=== PATIENT | male | born 1965 | race Caucasian/White ===

== ENCOUNTER 2021-08-14 16:40 | Outpatient (CLI) | payer OTHER, SELFPAY ==
--- NOTE | 2021-08-14 17:10 | MRI_ITS ---
EXAM: MR CERVICAL SPINE WITHOUT INTRAVENOUS CONTRAST CLINICAL INDICATION: CERVICAL RADICULOPATHY WITH WEAKNESS Technologist Notes TINGLING FROM NECK UP ON TO HEAD AND TO RIGHT CHEEK AND RIGHT ARM. SYMPTOMS FOR 2-3 MONTHS. TECHNIQUE: Multiplanar and multisequence MR images of the cervical spine without intravenous contrast were performed. This report was created using [employer] report generation technology. COMPARISON: 11.08.2007. FINDINGS: VERTEBRAE: C5-6. Discogenic endplate changes. Loss of intervertebral disc height. There is endplate spondylosis of the vertebral body. Posterior disc bulge. Impression upon anterior thecal sac. Narrowing of the bilateral Neuroforamina. There is bilateral facet arthropathy. C6-7. Discogenic endplate changes. Loss of intervertebral disc height. There is endplate spondylosis of the vertebral body. Posterior disc bulge. Impression upon anterior thecal sac. Narrowing of the bilateral Neuroforamina. There is bilateral facet arthropathy. C2-3, C3-4, and C7-T1: Loss of intervertebral disc height. There is endplate spondylosis of the vertebral body. Normal central canal and intervertebral neuroforamina. There is bilateral facet arthropathy. C4-5.Loss of intervertebral disc height. There is endplate spondylosis of the vertebral body. Normal central canal and intervertebral neuroforamina. There is bilateral facet arthropathy. Posterior disc bulge. No spinal stenosis. Normal alignment. No spondylolisthesis. There is preservation of the normal cervical lordosis. SPINAL CORD: Unremarkable in signal and morphology. SOFT TISSUES: Unremarkable. No prevertebral soft tissue swelling. LYMPH NODES: Unremarkable. There is no cervical adenopathy. MRI/Spine Cervical (Routine) IMPRESSION: 1. C5-6. Discogenic endplate changes. Loss of intervertebral disc height. There is endplate spondylosis of the vertebral body. Posterior disc bulge. Impression upon anterior thecal sac. Narrowing of the bilateral Neuroforamina. There is bilateral facet arthropathy. This has progressed. 2. C6-7. Discogenic endplate changes. Loss of intervertebral disc height. There is endplate spondylosis of the vertebral body. Posterior disc bulge. Impression upon anterior thecal sac. Narrowing of the bilateral Neuroforamina. There is bilateral facet arthropathy. This has progressed. Electronically Signed: Juan Luis Garcia MD at 21:32 EST , Service support ,
--- NOTE | 2021-08-14 17:50 | MRI_ITS ---
STUDY: MR Spine Lumbar W/O Contrast 08/14/2021 9:48 PM REASON FOR EXAM: Male, 55 years old. Back pain LUMBAR RADICULOPATHY WITH WEAKNESS Technologist Notes LOW BACK PAIN AND STRONG RIGHT GROIN PAIN INTERMITTENTLY. NO KNOWN INJURY. TECHNIQUE: MR Spine Lumbar W/O Contrast Standardized fat and water weighted pulse sequences were obtained. COMPARISON: 12/10/2008 FINDINGS: Normal lumbar lordosis. There is no substantial scoliosis. Normal conus medullaris that terminates at the L1-2. L1-2: Loss of intervertebral disc height. There is endplate spondylosis of the vertebral body. Normal central canal and intervertebral neuroforamina. There is bilateral facet arthropathy. There is bilateral ligamentum flavum thickening. Posterior disc bulge. L2-3: Loss of intervertebral disc height. There is endplate spondylosis of the vertebral body. Normal central canal and intervertebral neuroforamina. There is bilateral facet arthropathy. There is bilateral ligamentum flavum thickening. Posterior disc bulge. L3-4: Loss of intervertebral disc height. There is endplate spondylosis of the vertebral body. There is bilateral facet arthropathy. Posterior disc bulge. No spinal stenosis. There is bilateral ligamentum flavum thickening. Disc desiccation. L4-5: Loss of intervertebral disc height. There is endplate spondylosis of the vertebral body. There is bilateral facet arthropathy. Narrowing of the bilateral intervertebral neuroforamina. Compression of exiting nerve roots. Posterior central disc herniation. No spinal stenosis. There is bilateral ligamentum flavum thickening. Disc desiccation. L5-S1: Loss of intervertebral disc height. There is endplate spondylosis of the vertebral body. There is bilateral facet arthropathy. Normal central canal and intervertebral neuroforamina. Normal visualized sacral ala. Normal visualized paraspinous soft tissue structures. MRI/Spine Lumbar (Routine) IMPRESSION: Multilevel degenerative changes, as described above. There is a central disc herniation L4-5. Electronically Signed: Juan Luis Garcia MD at 21:51 EST , Service support ,
== END 2021-08-14 23:59 | disposition home or self-care (01) ==
PROVIDERS: Visit Provider Nurse Practitioner
DX: M54.12 Radiculopathy, cervical region (principal)
CPT/HCPCS: 72141; 72148

== ENCOUNTER → 2021-12-09 | Outpatient (CLI) | payer OTHER, SELFPAY ==
--- NOTE | 2021-12-09 16:37 | MRI_ITS ---
STUDY: MRA OF THE HEAD WITHOUT CONTRAST REASON FOR EXAM: Male, 56 years old. CVA TECHNIQUE: 3-D wbts-ex-bdmeif (TOF) imaging was performed with MIPs. The study was performed unenhanced. COMPARISON: None. FINDINGS: Normal bilateral petrous carotid arteries. Normal right cavernous carotid artery with a normal supraclinoid bifurcation. Normal left cavernous carotid artery with a normal supraclinoid bifurcation. Normal right A1 segments of the anterior cerebral artery. Normal left A1 segments of the anterior cerebral artery. Normal intact anterior communicating artery (ACOM). Normal bilateral A2 segments of the anterior cerebral arteries. Normal right M1 and M2 segments of the middle cerebral arteries, with a normal M1 bifurcation. Normal left M1 and M2 segments of the middle cerebral arteries, with a normal M1 bifurcation. There is non-visualization of the right posterior communicating artery (PCOM). Normal left posterior communicating artery (PCOM). Normal bilateral vertebral arteries. Normal basilar artery with a normal basilar bifurcation. The visualized bilateral superior cerebellar (SCA) arteries are normal. Normal bilateral P1, P2 and visualized P3 segments of the posterior cerebral arteries. There is no demonstrated aneurysm of the [place]. There is no major vessel occlusion or hemodynamically significant stenosis. There is no demonstrated abnormality of the visualized brain. MRI/MRA Head ONLY without Contrast IMPRESSION: Normal MRA of the head Electronically Signed: Ofe Barrow MD at 6:05 EDT ,
--- NOTE | 2021-12-09 17:00 | MRI_ITS ---
EXAM: MR HEAD WITHOUT INTRAVENOUS CONTRAST CLINICAL INDICATION: CVA TECHNIQUE: Multiplanar and multisequence MR images of the brain were obtained without intravenous contrast. This report was created using [employer] report generation technology. COMPARISON: None. FINDINGS: BRAIN AND EXTRA-AXIAL SPACES: Unremarkable. No intra- or extra-axial hemorrhage. No evidence of acute infarct. No intracranial mass or mass effect. There is preservation of the ferguson/white matter interface. Posterior fossa structures are unremarkable. Ventricles are appropriate for age. No hydrocephalus. Basal cisterns are patent. SELLA: Unremarkable. Normal sella turcica, pituitary gland, infundibular stalk, optic chiasm and hypothalamus. AUDITORY SYSTEM: Unremarkable. The internal auditory canals are patent. BONES/JOINTS: Unremarkable. No discrete lytic or blastic abnormalities. SINUSES: Mucosal thickening in the paranasal sinuses, more in the ethmoid sinus and maxillary sinuses. MASTOID AIR CELLS: Unremarkable as visualized. Clear. ORBITS: Unremarkable as visualized. Both globes, extraocular muscles, optic nerves and retrobulbar fat appear unremarkable. VASCULATURE: Unremarkable as visualized. Normal flow voids in the major intracranial circulation. MRI/Brain without Contrast IMPRESSION: 1. Normal MRI brain without contrast. 2. Mucosal thickening in the paranasal sinuses, more in the ethmoid sinus and maxillary sinuses. Electronically Signed: Fernando Huntley MD at 8:12 EDT ,
--- NOTE | 2021-12-09 17:26 | MRI_ITS ---
STUDY: MRA NECK WITHOUT CONTRAST REASON FOR EXAM: Male, 56 years old. CVA TECHNIQUE: Source images were obtained, MIPs were performed. The study was performed unenhanced. COMPARISON: None. FINDINGS: RIGHT CAROTID ARTERIES: Normal right common carotid artery (CCA). Normal right common carotid bulb. Normal origin of the right internal carotid (ICA) artery without a hemodynamically significant stenosis. Normal visualized cervical portion of the right internal carotid artery. Normal origin of the right external carotid artery (ECA). LEFT CAROTID ARTERIES: Normal left common carotid artery (CCA). Normal left common carotid bulb. Normal origin of the left internal carotid (ICA) artery without a hemodynamically significant stenosis. Normal visualized cervical portion of the left internal carotid artery. Normal origin of the left external carotid artery (ECA). VERTEBRAL ARTERIES: Normal antegrade flow within the bilateral vertebral artery without a hemodynamically significant stenosis. MRI/MRA Neck without Contrast IMPRESSION: Normal bilateral cervical carotid and vertebral arteries. Electronically Signed: Tushar Yung MD at 0:33 EDT ,
== END | disposition home or self-care (01) ==
LOC: MRI 16:23
PROVIDERS: PCP Family Medicine
DX: I67.89 Other cerebrovascular disease (principal)
CPT/HCPCS: 70544; 70547; 70551

== ENCOUNTER 2022-09-04 17:50 | Emergency (ER) | payer OTHER, SELFPAY ==
[2022-09-04 17:51] VITALS: BP 151/78; PULSE 66; RESP 18; TEMP 36.3; O2SAT 98; BMI 31.1
[2022-09-04 18:23] LABS: Absolute Lymphocyte Count 2.42 X10^3/uL (0.83-4.51); Absolute Neutrophil Count 5.2 X10^3/uL (2.0-7.7); Basophil# 0.02 X10^3/uL; Basophil% 0.2 % (0-1); Eosinophil# 0.14 X10^3/uL; Eosinophils% 1.6 % (0-5); Hemoglobin 14.9 g/dL (13.0-16.5); Lymphocyte # 2.42 X10^3/ul (0.83-4.51); Lymphocyte % 27.6 % (19-41); Mean Corp Hgb Conc 34.7 g/dL (32-36); Mean Corpuscular Hgb 30.1 pg (27.0-32.0); Mean Corpuscular Volume 86.9 fL (80-94); Monocyte# 0.93 X10^3/uL; Monocyte% 10.6 % (0-10); NRBC Flagged by Analyzer 0 % (0-5); Neutrophil # 5.23 X10^3/uL (2.7-7.7); Neutrophil % 59.8 % (47-70); Platelet Count 256 K/mm3 (150-450); RBC Distribution Width CV 12.3 % (11.6-14.6); RBC Distribution Width SD 39.4 fl (35.1-43.9); Red Blood Count 4.95 M/mm3 (4.6-6.2); White Blood Count 8.8 K/mm3 (4.4-11.0)
[2022-09-04 18:34] LABS: Anion Gap 9 (5-15); BUN 13 mg/dL (7-18); BUN/Creat Ratio 11.8 RATIO (10-20); Calcium,Total 9.3 mg/dL (8.5-10.1); Chloride 102 mmol/L (98-107); EST Glomerular Filtration Rate 73 mL/min (>60); Est Glom Filt Rate - Afr Amer 89 mL/min (>60); Estimated Creatinine Clearance 72.55 ml/min; Glucose 80 mg/dL (74-106); Potassium 4.1 mmol/L (3.5-5.1); Sodium Level 138 mmol/L (136-145)
--- NOTE | 2022-09-04 18:50 | CT_ITS ---
INDICATION: Left lower quadrant pain. History of inguinal hernia repair. EXAMINATION: CT ABDOMEN AND PELVIS WITH CONTRAST - CT Abdomen And Pelvis W/ Contrast Injection TECHNIQUE: Helically acquired images were obtained of the abdomen and pelvis following IV contrast. A radiation dose optimization technique was used for this scan. IV Contrast dosage and agent: 2 views of Isovue 370 Oral contrast: None. COMPARISON: None. FINDINGS: LOWER CHEST: Lung bases are clear. No cardiomegaly or pericardial effusion. LIVER: Mild fatty infiltration of the liver without focal mass. GALLBLADDER AND BILIARY TREE: No calcified gallstones. No gallbladder distension or wall edema. No intra- or extrahepatic biliary ductal dilation. PANCREAS: No focal cystic or solid mass. SPLEEN: Normal size without focal cystic or solid mass. ADRENAL GLANDS: No nodules. KIDNEYS AND URETERS: Normal renal size and position. No hydronephrosis. Normal visualized ureters. PERITONEUM: No ascites or free air. No other fluid collection. BOWEL: Normal stomach. Normal small intestine. Diverticulitis of the sigmoid colon without perforation or abscess. The proximal colon appears unremarkable. Normal appendix. LYMPH NODES: No enlarged mesenteric or retroperitoneal lymph nodes. VESSELS: Minimal atherosclerotic changes of the abdominal aorta without aneurysm or dissection. Normal IVC. URINARY BLADDER: Unremarkable. REPRODUCTIVE ORGANS: Normal prostate and seminal vesicles. ABDOMINAL WALL: No discrete abdominal or pelvic wall hernia. BONES: Degenerative changes lumbar spine. There appears to be central disc herniation at L4-5. CT/Abdomen/Pelvis W IV Cont ONLY IMPRESSION: 1. Sigmoid diverticulitis without perforation or abscess. 2. Question central disc herniation at L5-S1. 3. Mild fatty infiltration of the liver. Electronically Signed: Wild Coronel DO at 19:47 EST Reading Location ID and State: [facility] / [place] Tel [phone], Service support ,
--- NOTE | 2022-09-04 19:21 | EDS_ITS ---
HPI HPI - GI History of Present Illness Chief Complaint: Abd Pain Informant: patient Narrative Narrative: Patient presents with lower abdominal pain that is been going on for about a week. He states he has irritable bowel and will sometimes get some diarrhea. He tried loperamide early on but it did not help. He felt bound up so he then took a stool softener. He had a large bowel movement but his pain has persisted. He has never seen blood. Sometimes his appetite has been a little bit off but he has no nausea vomiting or difficulty eating or drinking. No urinary symptoms. No back or flank pain other than a chronic problem with blood back soreness. That is unchanged. He has had colonoscopies. He does not know if he has had diverticular disease. Only abdominal surgery was a right inguinal herniorrhaphy years ago. PFSH PFSH Home Medications amoxicillin 875 mg-potassium clavulanate 125 mg tablet 1 tab PO BID #20 tabs 09/04/22 [Rx Last Taken Unknown] ondansetron 4 mg disintegrating tablet 4 mg PO Q8H PRN PRN Nausea #10 tabs 09/04/22 [Rx Last Taken Unknown] Allergy/AdvReac Type Severity Reaction Status Date / Time amitriptyline [From Elavil] Allergy Other Verified 09/04/22 17:52 Social History Smoking Status: Never smoker ROS ROS ED Constitutional Constitutional ED: Denies chills or fever(s) ENT ENT ED: Denies rhinorrhea Cardiovascular Cardiovascular: Denies palpitations or racing heartbeat Respiratory/Chest Respiratory/Chest: Denies cough or dyspnea Gastrointestinal Gastrointestinal: Reports abdominal pain; Denies melena, nausea or vomiting Genitourinary Genitourinary ED: Denies dysuria or hematuria Musculoskeletal Musculoskeletal: Reports back pain; Denies neck pain Integumentary Denies rash Neurologic Neurologic: Denies headache(s) Endocrine Endocrinology: Denies polydipsia or polyuria Hematologic/Lymphatic Hematologic/Lymphatic: Denies easy bleeding or easy bruising Allergic/Immunologic Allergic/Immunologic ED: Denies urticaria EXAM Physical Exam Narrative Exam Narrative: Patient awake alert no acute distress. Carries on normal conversation. HEENT shows normal mucous membranes. No pallor. No nasal discharge Eye exam shows no pallor or jaundice Neck shows no JVD Lungs are clear bilaterally with good deep breaths. Note: Some data may have been lost as computer shutdown in the middle of this dictation and charting. Heart: Regular without murmur gallop or rub peripheral pulses are equal and normal Abdomen soft, there is tenderness at the left lower quadrant region. No tenderness elsewhere. No mass. Bowel sounds sound normal. no CVA or suprapubic isolated tenderness. Extremities show no edema or tenderness. Patient alert oriented and appropriate. Const Vital Signs: 09/04/22 17:51 Temperature 97.3 F L Temperature Source Temporal Pulse Rate 66 Respiratory Rate 18 Blood Pressure 151/78 H Blood Pressure Mean 102 Pulse Ox 98 Oxygen Delivery Method Room Air MDM MDM MDM Narrative Medical decision making narrative: My independent interpretation of the patient's CT of the abdomen with IV contrast does show some signs of diverticulitis. I did not see a definitive abscess or perforation but we did wait for the final reading. Final reading also did not see an acute perforation. They also make mention of a central disc. Patient does know about this and has been having back pain issues. But he has no neurologic symptoms. Patient CBC is normal. His electrolytes show no acute process and no renal dysfunction. Urinalysis is also normal. I talk with the patient about treatment. We will get him started on Augmentin. We also discussed the significant importance of a clear liquid diet. We also discussed reasons to return that would include worsening pain, vomiting, fevers or other concerns. Lab Data Attestation: I reviewed the patient's lab results. Labs: Laboratory Results - last 24 hr 09/04/22 09/04/22 09/04/22 18:13 18:13 19:16 WBC 8.8 RBC 4.95 Hgb 14.9 Hct 43.0 MCV 86.9 MCH 30.1 MCHC 34.7 RDW Std Deviation 39.4 RDW Coeff of Jade 12.3 Plt Count 256 MPV 9.0 Immature Gran % (Auto) 0.200 Neut % (Auto) 59.8 Lymph % (Auto) 27.6 [place] % (Auto) 10.6 H Eos % (Auto) 1.6 Baso % (Auto) 0.2 Absolute Neuts (auto) 5.2 Absolute Lymphs (auto) 2.42 Nucleated RBC % 0 Sodium 138 Potassium 4.1 Chloride 102 Carbon Dioxide 27.0 Anion Gap 9 BUN 13 Creatinine 1.10 Estim Creat Clear Calc 72.55 Est GFR (MDRD) Af Amer 89 Est GFR (MDRD) Non-Af 73 BUN/Creatinine Ratio 11.8 Glucose 80 Calcium 9.3 Urine Color Yellow Urine Clarity Clear Urine pH 7.0 Ur Specific [place] 1.010 Urine Protein 30 H Urine Glucose (UA) Normal Urine Ketones 15 H Urine Occult Blood Negative Urine Nitrite Negative Urine Bilirubin Negative Urine Urobilinogen 8 H Ur Leukocyte Esterase Negative Urine RBC 0 SEEN Urine WBC 0 SEEN Ur Squamous Epith Cells 0 SEEN Urine Bacteria 0 SEEN Urine Mucus 0 SEEN Radiography Diagnostic Testing: Clinical Impression(s) from Imaging Studies Abdomen/Pelvis CT 09/04/22 18:50 IMPRESSION: 1. Sigmoid diverticulitis without perforation or abscess. 2. Question central disc herniation at L5-S1. 3. Mild fatty infiltration of the liver. Electronically Signed: Wild Coronel DO at 19:47 EST Reading Location ID and State: [address] [place] [address] Tel [phone], Service support , Discharge Plan Triage Chief Complaint: Abd Pain ED Provider: Ralph Levy Dx/Rx/DC Orders Clinical Impression: Diverticulitis Instructions: ED Diverticulitis Prescriptions: New ondansetron [ondansetron] 4 mg tablet,disintegrating 4 mg PO Q8H PRN PRN (Reason: Nausea) Qty: 10 0RF amoxicillin-pot clavulanate 875-125 mg tablet 1 tab PO BID Qty: 20 0RF [facility]errals: [facility] [Primary Care Provider] - 3-5 Days if not improving Disposition Disposition: Home, Self Care
[2022-09-04 19:23] LABS: Bacteria 0 SEEN /hpf (None Seen); Mucous, Urine 0 SEEN /hpf (<or=2+); Red Blood Cells-Urine 0 SEEN /hpf (0-5); Squamous Epithelial Cells - UA 0 SEEN /hpf (0-5); White Blood Cells 0 SEEN /hpf (0-5)
[2022-09-04 19:41] LABS: Color, Urine Yellow (Yellow); Glucose, Dipstick Normal (Normal); Ketone-Dipstick 15 mg/dl (Negative); Leukocyte Esterase-Dipstick Negative /ul (Negative); Nitrite-Dipstick Negative (Negative); Occult Blood-Urine Negative /ul (Negative); Protein-Dipstick 30 mg/dl (Negative); Urine Bilirubin Dipstick Negative (Negative); Urine Clarity Clear (Clear); Urine Urobilinogen 8 mg/dl (Normal)
[2022-09-04] MEDS: Amox/Clavulanate 875 MG Tablet PO (21:42)
[2022-09-04 21:48] VITALS: PULSE 67; RESP 16; O2SAT 98
== END 2022-09-04 21:49 | disposition home or self-care (01) ==
PROVIDERS: Emergency Provider Emergency Medicine; Visit Provider Emergency Medicine
DX: K57.32 Diverticulitis of large intestine without perforation or abscess without bleeding (principal)
CPT/HCPCS: 74177; 80048; 81001; 85025; 99283; Q9967; A4216

== ENCOUNTER → 2024-06-08 | Outpatient (CLI) | payer OTHER, SELFPAY ==
--- NOTE | 2024-06-08 07:15 | US_ITS ---
STUDY: ABDOMINAL ULTRASOUND - RIGHT UPPER QUADRANT REASON FOR VISIT: Male, 58 years old HEPATIC FIBROSIS, ADVANCED FIBROSIS, HCC SCREENING ] TECHNIQUE: Ultrasound evaluation of the right upper quadrant was performed with real-time and static ferguson-scale imaging. TECHNICAL QUALITY: Limited. Examination limited due to a combination of factors including obesity and bowel gas. COMPARISON: CT scan. 09/04/2022 . FINDINGS: Liver: The liver measures 16.2 cm. There is increased echogenicity consistent with fatty infiltration. The bile ducts are within normal limits. There is hepatic color flow. The direction of portal flow is hepatopetal. There is no demonstrated mass lesion. Gallbladder: Normal distended gallbladder. The gallbladder wall measures 2 mm. There is a negative sonographic Kaba''s sign. There is no pericholecystic fluid. There are no gallstones. Common Bile Duct (C.B.D.): The common bile duct measures 5 mm. Pancreas: Suboptimally visualized. Right Kidney: Normal size of the right kidney. The right kidney measures 11.6 cm. Normal renal cortex. The right cortex measures 1.8 cm. There is no demonstrated renal mass or cyst. There is no right hydronephrosis. US/Liver IMPRESSION: Limited as above. No definite acute or significant abnormality seen. Electronically Signed: Dk Savage MD at 23:58 EDT ,
== END | disposition home or self-care (01) ==
LOC: US 07:11
DX: K74.02 Hepatic fibrosis, advanced fibrosis (principal)
CPT/HCPCS: 76705

== ENCOUNTER → 2024-11-27 | Outpatient (CLI) | payer OTHER, SELFPAY ==
--- NOTE | 2024-11-27 07:48 | US_ITS ---
PROCEDURE: ABDOMEN LIMITED 11/27/2024 REASON FOR EXAM: ADVACED FIBROSIS HCC SCREENING COMPARISON: None FINDINGS: Liver: Diffusely echogenic suggesting fatty infiltration.. Liver measures 15.7 cm. Gallbladder: No stones, sludge, wall thickening or tenderness. Common bile duct: Normal measuring 3.3 mm. Pancreas: Visualized portions are sonographically unremarkable. Other: Visualized portions of the right kidney are unremarkable. No right upper quadrant ascites. US/Abdomen Limited IMPRESSION: Fatty infiltration of the liver. The liver is not enlarged. Reading Location: [place] [id number]
== END | disposition home or self-care (01) ==
PROVIDERS: Referring Provider Internal Medicine Gastroenterology; Visit Provider Internal Medicine Gastroenterology
DX: K74.02 Hepatic fibrosis, advanced fibrosis (principal)
CPT/HCPCS: 76705

== ENCOUNTER → 2025-05-22 | Outpatient (CLI) | payer OTHER, SELFPAY ==
--- NOTE | 2025-05-22 09:36 | MRI_ITS ---
PROCEDURE: BRAIN W/WO CONTRAST 05/22/2025 REASON FOR EXAM: OPTIC ATROPHY, BOTH EYES TECHNIQUE: Procedure Code: [id number] Modality: MR Procedure: BRAIN W/WO CONTRAST Multiplanar and multisequence images were obtained. CONTRAST: Clariscan VOLUME: 17 mL COMPARISON: none FINDINGS: Both optic nerves are of normal width and signal intensity. No mass is seen in their relation. No abnormal optic nerve enhancement seen. Optic chiasma is normal. Periorbital soft tissues and retrobulbar fat appear unremarkable. No mass or collection is evident. Extraocular muscles are of normal size. Both eyeballs are normal in size, outline and position. No intraocular mass is observed. No intracerebral or extra-axial hematomas or enhancing masses. No hyperacute or acute infarctions could be depicted. Bilateral cerebral white matter few tiny foci of high T2/FLAIR signal. Normal MRI appearance of the cerebellar parenchymal signals. Normal MRI appearance of different anatomical parts of the brain stem. Normal appearance of the ventricular system. No shift of midline structures. Normal MRI appearance of the petrous temporal bones and cerebellopontine angles with no obvious masses. Scanned paranasal sinuses show no obvious abnormalities. MRI/Brain W/WO Contrast IMPRESSION: Unremarkable study of the orbits. Bilateral cerebral white matter few tiny foci of altered signal, possibly vascu lopathic. Reading Location: [place] [address]
--- NOTE | 2025-05-22 09:38 | MRI_ITS ---
PROCEDURE: MRA HEAD ONLY WITHOUT CONTRAST 05/22/2025 REASON FOR EXAM: OPTIC ATROPHY, BOTH EYES COMPARISON: none TECHNIQUE: Procedure Code: [id number] Modality: MR Procedure: MRA HEAD ONLY WITHOUT CONTRAST Multiplanar multisequential imaging was performed without IV contrast administration. FINDINGS: Patent MRA flow signals of the petrous, cavernous and supraclinoid segments of the internal carotid arteries showing no stenotic lesions or aneurysmal dilatation. Patent MRA signal of the anterior and middle cerebral arteries Patent MRA signal of the vertebral and basilar arteries. No stenotic lesions or aneurysmal dilatation. Persistent origin of the left posterior cerebral artery, variant. Otherwise, patent posterior cerebral arteries. None of the mentioned arteries shows stenotic lesions, occlusion, aneurysmal dilatation or arteriovenous malformation. MRI/MRA Head ONLY without Contrast IMPRESSION: Unremarkable MRA of the intracranial vessels constituting ([place]). Reading Location[facility]
--- NOTE | 2025-05-22 09:38 | MRI_ITS ---
PROCEDURE: MRA NECK WITH AND W/O CONTRAST 05/22/2025 REASON FOR EXAM: OPTIC ATROPHY, BOTH EYES TECHNIQUE: Procedure Code: [id number] Modality: MR Procedure: MRA NECK WITH AND W/O CONTRAST Neck MRA using 2D and 3D Time of Flight technique and with intravenous gadolinium-based contrast. CONTRAST: Clariscan VOLUME: 17 mL COMPARISON: none FINDINGS: Patent MRA signal of the examined aortic arch. Patent MRA signal of the common carotid arteries. No tight stenosis. Paten MRA signal of carotid bulbs. Patent MRA signal of the cervical segments of the internal carotid arteries. No tight stenosis. Patent MRA signal of the external carotid arteries. Hypoplastic right vertebral artery. Variant. Otherwise, patent vertebral arteries. No tight stenosis. None of the examined arteries show aneurysmal dilatation or obvious AVM. MRI/MRA Neck WITH and W/O Contrast IMPRESSION: Patent extracranial carotid and vertebral arteries. Reading Location[facility] [place]
== END | disposition home or self-care (01) ==
LOC: MRI 09:30
DX: H47.20 Unspecified optic atrophy (principal)
CPT/HCPCS: 70544; 70549; 70553; A9575; A4216

== ENCOUNTER → 2025-05-28 | Outpatient (CLI) | payer OTHER, SELFPAY ==
--- NOTE | 2025-05-28 07:52 | US_ITS ---
PROCEDURE: LIVER 05/28/2025 REASON FOR EXAM: F/U ADVANCED LIVER FIBROSIS HCC SCREENING TECHNIQUE: Procedure Code: USLI Modality: US Procedure: LIVER COMPARISON: Prior study dated November 27, 2024. FINDINGS: Liver: Diffusely echogenic suggesting fatty infiltration. The liver measures 16.2 cm. Gallbladder: No stones, sludge, wall thickening or tenderness. Common bile duct: Normal measuring 4.1 mm . Pancreas: Normal Other: Visualized portions of the right kidney are unremarkable. No right upper quadrant ascites. US/Liver IMPRESSION: Fatty infiltration of the liver. No focal lesion is seen. Reading Location: [place] [id number]
--- NOTE | 2025-05-28 07:52 | US_ITS ---
PROCEDURE: LIVER 05/28/2025 REASON FOR EXAM: F/U ADVANCED LIVER FIBROSIS HCC SCREENING TECHNIQUE: Procedure Code: USLI Modality: US Procedure: LIVER COMPARISON: Prior study dated November 27, 2024. FINDINGS: Liver: Diffusely echogenic suggesting fatty infiltration. The liver measures 16.2 cm. Gallbladder: No stones, sludge, wall thickening or tenderness. Common bile duct: Normal measuring 4.1 mm . Pancreas: Normal Other: Visualized portions of the right kidney are unremarkable. No right upper quadrant ascites. US/Liver IMPRESSION: Fatty infiltration of the liver. No focal lesion is seen. Reading Location: [place] [address]
--- OUTSIDE RECORDS SUMMARY | 2025-05-28 08:04 | XMS RPT_ITS | CCD ---
Author Organization [facility] Care Team Providers Care Entry Level Financial Analyst Name Role Phone Ashu Boudreaux MD Primary Care Provider [phone] LOREN SPRINGER Referring Unavailable ASHU BOUDREAUX Primary Care Unavailable ZAIRA MURPHY Attending Unavailable ASHU BOUDREAUX Primary Care Unavailable ZAIRA MURPHY Referring Unavailable LOREN SPRINGER Attending Unavailable LOREN SPRINGER Attending Unavailable ASHU BOUDREAUX Primary Care Unavailable ASHU BOUDREAUX Primary Care Unavailable Ashu Boudreaux MD Primary Care Provider Unavailable Primary Care Provider UnavailEMILY Meeks Referring Unavailable KEYANNA, ZANE Attending Unavailable KEYANNA, ZANE Referring Unavailable ZANE GONZALEZ Attending Unavailable KEYANNA, ZANE Attending Unavailable KEYANNA, ZANE Referring Unavailable Shalonda Vizcarra Attending Unavailable Shalonda Vizcarra [facility]erring [facility] Unavailable Shalonda Vizcarra Attending Unavailable Shalonda Vizcarra Referring [facility] Unavailable Cameron Garcia Attending Unavailable Cameron Garcia Referring [facility] Unavailable Cameron Garcia Attending Unavailable Cameron Garcia Referring Unavailable Allergies Allergy Classification Reported Allergen(s) Allergy Type Date of Onset Reaction(s) Facility (13 sources) Amitriptyline; Translations: [AMITRIPTYLINE HCL] Drug Allergy 6 Mental Status Change [facility] Work Phone: (3 sources) Amitriptyline Drug Allergy 3 Seizures [facility] (1 source) Amitriptyline Drug Allergy 3 [facility] Repository Medications Current Medications Medication Drug Class(es) Dates Sig (Normalized) Sig (Original) amoxicillin 875 mg / clavulanate 125 mg oral tablet (2 sources) Penicillin-class Antibacterial Start: 10-19-2023 End: 10-26-2023 take 1 tablet by mouth twice daily amoxicillin-clav ulanate potassium (AUGMENTIN) 875-125 mg per tablet Indications: Bacterial sinusitis Take 1 tablet by mouth two times a day for 7 days. 14 tablet 0 10/19/2023 10/26/2023 Active Start: 09-04-2022 take 1 tablet by luisana th twice daily Amoxicillin-Pot Clavulanate Active 1 TABLET PO TWICE A DAY September 04, 2022 12:00am Comment on above: Take 1 tablet by luisana th two times a day for 7 days. calcium carbonate 1250 mg / cholecalciferol 200 unt oral tablet (12 sources) Vitamin D Start: 06-02-2011 take 1 tablet by mouth once daily calcium-carbonat e-vitamin D3 500 mg-5 mcg (200 unit) per tablet Take 1 tablet by mouth once daily. 0 06/02/2011 Active Start: 06-02-2011 take 1 tablet by luisana th twice daily [place]-unxkfnprh-fmnrkwt D3 500 mg-5 mc g (200 unit) per tablet Take 1 tablet by mouth twice daily. 0 06/02/2011 Active Comment on above: Take 1 tablet by luisana th twice daily. Take 1 tablet by luisana th once daily. calcium citrate 1190 mg / cholecalciferol 0.005 mg oral tablet (2 sources) Vitamin D Calcium Citrate-Vitamin D (Calcium Citrate + D) 250-5 MG-MCG tablet Active celecoxib 200 mg oral capsule (2 sources) Nonsteroidal Anti-inflammatory Drug Start: 025 take 1 capsule by mouth once daily at mealtime Celecoxib 200 MG capsule Indications: Pain in both hands , Carpal tunnel syndrome, left Take 1 capsule by mouth daily. Take daily with food. 30 capsule 2 05/01/2025 Active levETIRAcetam 500 mg oral tablet (2 sources) levETIRAcetam 50 0 MG tablet Active ondansetron 4 mg disintegrating oral tablet (1 source) Serotonin-3 Receptor Antagonist Start: 023 take 4 mg by mouth every eight hours as needed Ondansetron Active 4 MG PO EVERY 8 HOURS NEEDED September 04, 2022 12:00am rosuvastatin calcium 5 mg oral tablet (2 sources) HMG-CoA Reductase Inhibitor Rosuvastatin 5 MG tablet Active timolol 2.5 mg/ml ophthalmic solution (2 sources) beta-Adrenergic Madelyn Start: take 1 drop(s) into the eye(s) twice daily Timolol maleate 0.25 % Solution instill 1 drop into each eye twice daily 01/07/2025 Active Completed/Discontinued Medications Medication Drug Class(es) Dates Sig (Normalized) Sig (Original) chlordiazePOXIDE hydrochloride 5 mg / clidinium bromide 2.5 mg oral capsule (6 sources) Anticholinergic, Benzodiazepine Start: 09-16-2018 End: 09-04-2022 take 1 capsule by mouth twice daily before lunch, then take 5 capsules by mouth once chlordiazePOXIDE- clidinium (LIBRAX) 5-2.5 mg per capsule Indications: Dyskinesia of esophagus TAKE ONE CAPSULE BY MOUTH TWICE DAILY (BEFORE LUNCH AND EVENING MEAL) 60 capsule 09/16/2018 09/04/2022 Discontinued Comment on above: TAKE ONE CAPSULE BY MOUTH TWICE DAILY (BEFORE LUNCH AND EVENING MEAL) 10 ml lidocaine hydrochloride 10 mg/ml injection (2 sources) Antiarrhythmic, Amide Local Anesthetic Start: 05-01-2025 End: 05-01-2025 Lidocaine (XYLOCAINE) 10 mg/mL injection 1 mL Start: 05-01-2025 End: 05-01-2025 1 mL, Intra-articular, ONCE NEEDED, 1 dose, Starting on Wed05/01/25 at 1500, Until Wed05/01/25 at 1500 loperamide hydrochloride 0.133 mg/ml oral suspension (4 sources) Opioid Agonist Start: 06-09-2022 loperamide (IMODIUM A-D) 1 mg/7.5 mL oral liquid TAKE 7.5ML BY MOUTH FOUR TIMES A DAY NEEDED FOR DIARRHEA 0 06/09/2022 Active Comment on above: TAKE 7.5ML BY MOUTH FOUR TIMES A DAY NEEDED FOR DIARRHEA 1 ml methylPREDNISolone acetate 40 mg/ml injection (2 sources) Corticosteroid Start: 05-01-2025 End: 05-01-2025 methylPREDNISolone acetate (DEPO-MEDROL) injection 40 mg Start: 05-01-2025 End: 05-01-2025 40 mg, Intra-articular, ONCE NEEDED, 1 dose, Starting on Wed05/01/25 at 1500, Until Wed05/01/25 at 1500 omeprazole 20 mg delayed release oral capsule (6 sources) Proton Pump Inhibitor Start: 04-07-2022 take 2 capsules by mouth once daily omeprazole (PRILOSEC) 20 mg capsule Take 40 mg by mouth once daily. 0 04/07/2022 Active omeprazole [address] capsule Active Comment on above: 40 mg. Take 40 mg by mouth once daily. simvastatin 20 mg oral tablet (4 sources) HMG-CoA Reductase Inhibitor Start: 08-17-19 take 1 tablet by mouth once daily at bedtime simvastatin (ZOCOR) 20 mg tablet Take 20 mg by mouth daily at bedtime. 0 08/17/2022 Active Comment on above: Take 20 mg by mouth daily at bedtime. 1 ml triamcinolone acetonide 40 mg/ml injection (2 sources) Corticosteroid Start: 05-01-20 End: 05-01-20 triamcinolone (KENALOG-40) injection 40 mg Start: 05-01-2025 End: 05-01-2025 40 mg, Intra-articular, ONCE NEEDED, 1 dose, Starting on Wed05/01/25 at 1500, Until Wed05/01/25 at 1500 24 hr divalproex sodium 500 mg extended release oral tablet (10 sources) Mood Stabilizer, Anti-epileptic Agent Start: 05-14-2022 take 1 tablet by mouth once daily at bedtime divalproex ER (DEPAKOTE ER) 500 mg 24 hr tablet Take 1,000 mg by mouth daily at bedtime. 0 05/14/2022 Active Start: 05-14-2022 divalproex ER (DEPAKOTE ER) 500 mg 24 hr tablet 1,000 mg. 0 05/14/2022 Active End: 09-04-2022 take 2 tablets by mouth once daily at bedtime divalproex DR 500 mg EC tablet Take 500 mg by mouth daily at bedtime. 2 tabs at hs 09/04/2022 Discontinued Comment on above: Take 500 mg by mouth daily at bedtime. 2 tabs at hs 1,000 mg. Take 1,000 mg by luisana th daily at bedtime. Problems Active Problems Problem Classification Problem Date Documented Da te Episodic/Chronic Abdominal pain (1 source) Lower abdominal pain; Translations: [Lower abdominal pain, unspecified] Episodic Disorders of lipid metabolism (12 sources) Hyperlipidemia; Translations: [Hyperlipidemia, unspecified] Onset: 01-25-2012 01-25-2012 Chronic Diverticulosis and diverticulitis (5 sources) Diverticulitis; Translations: [Diverticulitis of intestine, part unspecified, without perforation or abscess without bleeding] Onset: 01-07-2023 09-04-2022 Chronic Epilepsy; convulsions (12 sources) Seizure disorder; Translations: [Epilepsy, unspecified, not intractable, without status epilepticus] Onset: 06-02-2011 06-02-2011 Chronic Esophageal disorders (15 sources) Esophageal dysmotility; Translations: [Dyskinesia of esophagus] Onset: 10-06-2010 10-06-2010 Chronic Esophageal disorders (1 source) Esophageal disorders; Translations: [Gastroesophageal reflux disease with esophagitis without hemorrhage] Onset: 01-07-2023 Fracture of lower limb (3 sources) Closed fracture of medial malleolus; Translations: [Nondisplaced fracture of medial malleolus of left tibia, initial encounter for closed fracture] Episodic Gastritis and duodenitis (1 source) Chronic superficial gastritis without bleeding; Translations: [Chronic superficial gastritis without bleeding] Onset: 01-15-2023 Chronic Other circulatory disease (1 source) Clearing throat - hawking; Translations: [Other specified symptoms and signs involving the circulatory and respiratory systems] Episodic Other connective tissue disease (4 sources) Pain of bilateral hands; Translations: [Pain in right hand] 05-01-2025 Episodic Other connective tissue disease (2 sources) Pain in right hand; Translations: [Pain in right hand] Onset: 05-01-2025 Episodic Other connective tissue disease (2 sources) Pain in left hand; Translations: [Pain in left hand] Onset: 05-01-2025 Episodic Other eye disorders (1 source) Unspecified optic atrophy; 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] Onset: 05-22-2025 Chronic Other nervous system disorders (12 sources) Carpal tunnel syndrome of right wrist; Translations: [Carpal tunnel syndrome, right upper limb] Onset: 02-23-2013 02-23-2013 Chronic Other nervous system disorders (13 sources) Carpal tunnel syndrome of left wrist; Translations: [Carpal tunnel syndrome, left upper limb] Onset: 02-23-2013 02-23-2013 Chronic Other nervous system disorders (2 sources) Carpal tunnel syndrome, left upper limb; Translations: [Carpal tunnel syndrome, left upper limb] Onset: 05-01-2025 Chronic Other non-traumatic joint disorders (1 source) Acute ankle pain; Translations: [Pain in left ankle and joints of left foot] 10-03-2021 Episodic Other upper respiratory infections (1 source) Bacterial sinusitis; Translations: [Chronic sinusitis, unspecified] 10-19-2023 Chronic Unclassified (2 sources) Hepatic fibrosis, advanced fibrosis; Translations: [Hepatic fibrosis, advanced fibrosis] Onset: 11-29-2024 Past or Other Problems Problem Classification Problem Date Documented Da te Episodic/Chronic Abdominal hernia (13 sources) Diaphragmatic hernia; Translations: [Diaphragmatic hernia without obstruction or gangrene] Onset: 10-06-2010 10-06-2010 Episodic Gastritis and duodenitis (12 sources) Acute gastritis; Translations: [Acute gastritis without bleeding] Onset: 10-06-2010 09-17-2017 Episodic Other connective tissue disease (12 sources) Lateral epicondylitis of right humerus; Translations: [Lateral epicondylitis, right elbow] Onset: 02-23-2013 02-23-2013 Episodic Other gastrointestinal disorders (1 source) Dysphagia; Translations: [Dysphagia, unspecified] Onset: 01-07-2023 01-07-2023 Episodic Other gastrointestinal disorders (1 source) Dysphagia, unspecified; Translations: [Dysphagia, unspecified type] Onset: 01-07-2023 Episodic Other screening for suspected conditions (not mental disorders or infectious disease) (15 sources) Other specified abnormal findings of blood chemistry; Translations: [Other abnormal blood chemistry] Onset: 06-03-2011 06-03-2011 Episodic Results Test Name Value Interpretation Reference Range Facility Brain W/WO Contraston 2024 Brain W/WO Contrast [facility] Imaging Services [address] [place], [place] [id number] Brain W/WO Contrast MR#: [id number] Acct: [id number] Name: CLIFFORD HORN Rep #: [id number] : 1965 M 59 From: Ean hernandez MD PCP: [facility] Status: REG CLI Study: Brain W/WO Contrast Date of Exam: 05/22/25 Exam# [id number] Ordering Dr: DAROSZEWSKI,LOUIS PROCEDURE: BRAIN W/WO CONTRAST 05/22/2025 REASON FOR EXAM: OPTIC ATROPHY, BOTH EYES TECHNIQUE: Procedure Code: [id number] Modality: MR Procedure: BRAIN W/WO CONTRAST Multiplanar and multisequence images were obtained. CONTRAST: Clariscan VOLUME: 17 mL COMPARISON: none FINDINGS: Both optic nerves are of normal width and signal intensity. No mass is seen in their relation. No abnormal optic nerve enhancement seen. Optic chiasma is normal. Periorbital soft tissues and retrobulbar fat appear unremarkable. No mass or collection is evident. Extraocular muscles are of normal size. Both eyeballs are normal in size, outline and position. No intraocular mass is observed. No intracerebral or extra-axial hematomas or enhancing masses. No hyperacute or acute infarctions could be depicted. Bilateral cerebral white matter few tiny foci of high T2/FLAIR signal. Normal MRI appearance of the cerebellar parenchymal signals. Normal MRI appearance of different anatomical parts of the brain stem. Normal appearance of the ventricular system. No shift of midline structures. Normal MRI appearance of the petrous temporal bones and cerebellopontine angles with no obvious masses. Scanned paranasal sinuses show no obvious abnormalities. MRI/Brain W/WO Contrast IMPRESSION: Unremarkable study of the orbits. Bilateral cerebral white matter few tiny foci of altered signal, possibly vasculopathic. Reading Location: [place] [address] CC: LOUIS LYONS; [facility] Armoured Car Escort: Signed Normal [facility] MRA Head ONLY without Contra ston 05-22-2025 MRA Head ONLY without Contrast [facility] Imaging Services [address] [place] [id number] MRA Head ONLY without Contrast MR#: [id number] Acct: [id number] Name: CLIFFORD HORN Rep #: [id number] : 1965 M 59 From: Ean hernandez MD PCP: [facility] Status: REG CLI Study: MRA Head ONLY without Contrast Date of Exam: Exam# [id number] Ordering Dr: LOUIS LYONS PROCEDURE: MRA HEAD ONLY WITHOUT CONTRAST 05/22/2025 REASON FOR EXAM: OPTIC ATROPHY, BOTH EYES COMPARISON: none TECHNIQUE: Procedure Code: MRIMRAH Modality: MR Procedure: MRA HEAD ONLY WITHOUT CONTRAST Multiplanar multisequential imaging was performed without IV contrast administration. FINDINGS: Patent MRA flow signals of the petrous, cavernous and supraclinoid segments of the internal carotid arteries showing no stenotic lesions or aneurysmal dilatation. Patent MRA signal of the anterior and middle cerebral arteries Patent MRA signal of the vertebral and basilar arteries. No stenotic lesions or aneurysmal dilatation. Persistent origin of the left posterior cerebral artery, variant. Otherwise, patent posterior cerebral arteries. None of the mentioned arteries shows stenotic lesions, occlusion, aneurysmal dilatation or arteriovenous malformation. MRI/MRA Head ONLY without Contrast IMPRESSION: Unremarkable MRA of the intracranial vessels constituting ([place]). Reading Location: [place] [address] CC: LOUIS LYONS; [facility] [employer] Escort: Signed Normal [facility] MRA Neck WITH and W/O Contra ston 05-22-2025 MRA Neck WITH and W/O Contrast [facility] Imaging Services [address] [place] [id number] MRA Neck WITH and W/O Contrast MR#: [id number] Acct: [id number] Name: CLIFFORD HORN Rep #: [id number] : 1965 M 59 From: Ean hernandez MD PCP: [facility] Status: REG CLI Study: MRA Neck WITH and W/O Contrast Date of Exam: Exam# [id number] Ordering Dr: LOUIS LYONS PROCEDURE: MRA NECK WITH AND W/O CONTRAST 05/22/2025 REASON FOR EXAM: OPTIC ATROPHY, BOTH EYES TECHNIQUE: Procedure Code: [id number] Modality: MR Procedure: MRA NECK WITH AND W/O CONTRAST Neck MRA using 2D and 3D Time of Flight technique and with intravenous gadolinium-based contrast. CONTRAST: Clariscan VOLUME: 17 mL COMPARISON: none FINDINGS: Patent MRA signal of the examined aortic arch. Patent MRA signal of the common carotid arteries. No tight stenosis. Paten MRA signal of carotid bulbs. Patent MRA signal of the cervical segments of the internal carotid arteries. No tight stenosis. Patent MRA signal of the external carotid arteries. Hypoplastic right vertebral artery. Variant. Otherwise, patent vertebral arteries. No tight stenosis. None of the examined arteries show aneurysmal dilatation or obvious AVM. MRI/MRA Neck WITH and W/O Contrast IMPRESSION: Patent extracranial carotid and vertebral arteries. [facility] CC: LOUIS LYONS; [facility] [employer] Escort: Signed Normal [facility] UPPER EXTREMITY INJECTION: L carpal tunnelon 05-03-2025 Radiology Study observation (narrative) [employer] UPPER EXTREMITY INJECTION: L carpal tunnelon 05-01-2025 Daisyeloise Aleshia 05/03/2025 8:53 PM UPPER EXTREMITY INJECTION: L carpal tunnel Date/Time: 05/01/2025 3:00 PM Performed by: Zane Gonzalez MD Authorized by: Zane Gonzalez MD Supporting Documentation Indications: therapeutic Procedure Details: Procedure: carpal tunnel injection Site: L carpal tunnel Needle size: 25 G Approach: anterior Medication Verification: I have personally verified and performed the final check of the medication(s) used in this procedure prior to administration. The following items were included during the verification process for medication(s) administered: drug name, strength, volume, expiration, physical integrity and appearance of the medication(s). Medications administered: 40 mg methylPREDNISolone acetate 40 MG/ML; 1 mL Lidocaine 10 mg/mL; 40 mg triamcinolone 40 MG/ML Patient tolerance: patient tolerated the procedure well with no immediate complications Comments The risk and benefit of the injection have been discussed with the patient prior to injection and they did wish to proceed. The procedure was performed aseptically in the office and was tolerated by the patient. Consent: Consent was obtained prior to the procedure after discussion of the risks, benefits and alternatives, and expected outcomes were discussed with the patient. The possibilities of reaction to medication, bleeding, infection, the need for additional procedures, failure to diagnosis a condition, and creating a complication requiring operation were discussed with the patient. The patient concurred with the proposed plan, giving consent. Preparation: Patient was prepped in the usual sterile fashion. [facility] Abdomen Limitedon 11-27-2024 Abdomen Limited [facility] Imaging Services [address], [place] [address] Abdomen Limited MR#: [id number] Acct: [id number] Name: CLIFFORD HORN Rep #: [id number] : 1965 M 59 From: Peterson lutz MD PCP: [facility] Status: REG CLI Study: Abdomen Limited Date of Exam: 11/27/24 Exam# [id number] Ordering Dr: Shalonda Vizcarra AGER TENDER -C PROCEDURE: ABDOMEN LIMITED 11/27/2024 REASON FOR EXAM: ADVACED FIBROSIS HCC SCREENING COMPARISON: None FINDINGS: Liver: Diffusely echogenic suggesting fatty infiltration.. Liver measures 15.7 cm. Gallbladder: No stones, sludge, wall thickening or tenderness. Common bile duct: Normal measuring 3.3 mm. Pancreas: Visualized portions are sonographically unremarkable. Other: Visualized portions of the right kidney are unremarkable. No right upper quadrant ascites. US/Abdomen Limited IMPRESSION: Fatty infiltration of the liver. The liver is not enlarged. Reading Location: [place] [address] CC: JEAN Vizcarra; [facility] [employer] Escort: Signed Normal [facility] Liveron 06-08-2024 Liver [facility] Imaging Services [address] [place], [place] [address] Liver MR#: [id number] Acct: [id number] Name: CLIFFORD HORN Rep #: [id number] : 1965 M 58 From: Dk mcneill MD PCP: [facility] Status: REG CLI Study: Liver Date of Exam: 06/08/24 Exam# [id number] Ordering Dr: SHALONDA VIZCARRA [id number] STUDY: ABDOMINAL ULTRASOUND - RIGHT UPPER QUADRANT REASON FOR VISIT: Male, 58 years old HEPATIC FIBROSIS, ADVANCED FIBROSIS, HCC SCREENING ] TECHNIQUE: Ultrasound evaluation of the right upper quadrant was performed with real-time and static ferguson-scale imaging. TECHNICAL QUALITY: Limited. Examination limited due to a combination of factors including obesity and bowel gas. COMPARISON: CT scan. 09/04/2022 . FINDINGS: Liver: The liver measures 16.2 cm. There is increased echogenicity consistent with fatty infiltration. The bile ducts are within normal limits. There is hepatic color flow. The direction of portal flow is hepatopetal. There is no demonstrated mass lesion. Gallbladder: Normal distended gallbladder. The gallbladder wall measures 2 mm. There is a negative sonographic Kaba''s sign. There is no pericholecystic fluid. There are no gallstones. Common Bile Duct (C.B.D.): The common bile duct measures 5 mm. Pancreas: Suboptimally visualized. Right Kidney: Normal size of the right kidney. The right kidney measures 11.6 cm. Normal renal cortex. The right cortex measures 1.8 cm. There is no demonstrated renal mass or cyst. There is no right hydronephrosis. US/Liver IMPRESSION: Limited as above. No definite acute or significant abnormality seen. Electronically Signed: Dk Savage MD at 23:58 EDT , CC: SHALONDA VIZCARRA; [facility] [employer] Escort: Signed Normal [facility] CNOVon 10-19-2023 CNOV Office Visit ([facility] ) CLIFFORD HORN ([id number]) 1965 M Date Time Provider Department 10/19/23 5:00 PM MARLENY SANTIAGO [facility] During your visit today, we recorded the following information about you: Temperature Pulse Respiration Blood pressure 98.8 degrees 75/minute 20/minute 150/90 Weight 99.5 kg Marleny Santiago APRN.CNP 10/19/2023 5:04 PM Signed ASSESSMENT/PLAN: 1. Bacterial sinusitis - ICD9: 473.9, 041.9, ICD10: J32.9, B96.89 - Will begin treatment with as per antibiotic as written, see orders - The patient should also be given flonase nasal spray for the first 5-7 days of treatment. - Supportive care with plenty of fluids, rest, and analgesia prn. - AMOXICILLIN 875 MG-POTASSIUM CLAVULANATE 125 MG TABLET - Follow-up with your PCP in 3-5 days if symptoms have not improved or sooner if symptoms worsen - Discussed red flags and need for immediate medical evaluation if any occur. - Discussed supportive care treatment with fluids, rest and analgesia. - Discussed expected course of illness Marleny Santiago APRN.FOOD TASTER Adult Sinusitis Patient Education What is Sinusitis? Sinusitis [lksz-xew-elbl-tis] is inflammation of the sinuses or swelling of the lining of the sinus cavity or nose. During an infection the sinuses become blocked with fluid causing swelling of the lining of the sinuses. Symptoms: (viral and bacterial infections) Stuffy nose Runny nose Postnasal drip Fever Toothache Headache Tiredness Cough Sore throat Face and head pressure and or pain Common causes: 98% of sinus infections are viral caused by viruses. Risk Factors of Sinusitis Include: Allergies, air pollution, indoor humidity and outdoor temperature changes, andstructural changes in the nose may contribute to sinus pain, pressure and congestion. When to get help? Temperature greater than 100.4 ?F Symptoms lasting more than 10 days or worsening symptoms greater than 7-10 days. If you do not improve or worsen after a course of antibiotics, you should be re-examined. Diagnosis and Treatment: Your healthcare provider will ask a number of questions about your symptoms and how long they have occurred. If symptoms of sinusitis persist greater than 10 days, it is possible you have a bacterial sinus infection and an antibiotic is prescribed. If it is viral, antibiotics will not help. You may be instructed to take skos-vdw-[id number] medications for symptoms. including fever reducers acetaminophen or ibuprofen, nasal saline spray, cough and cold preparations and decongestants as prescribed by the physician, nurse practitioner or physician railways assistant. Self-Care and Prevention: Rest Fluids for hydration Good hand washing Humidifier Avoid smoking and exposure to second hand smoke Avoid sick contacts Marleny Santiago APRN.FOOD TASTER 10/19/2023 5:06 PM Signed Subjective Sinus Problem Associated symptoms include congestion, coughing and a sore throat. Pertinent negatives include no chills, fever, headaches or myalgias. Clifford Horn is a 58 year old male who presents with 7 days of cough, congestion, sore throat, sinus pressure, eyes red and drainage. He denies fever. Has been taking OTC medication and sudafed. No known sick contacts. Review of Systems Constitutional: Negative for chills and fever. HENT: Positive for congestion and sore throat. Negative for ear pain. Eyes: Positive for discharge and redness. Respiratory: Positive for cough. Musculoskeletal: Negative for myalgias. Neurological: Negative for dizziness and headaches. BP 150/90 Pulse 75 Temp 37.1 ?C (98.8 ?F) Resp 20 Wt 99.5 kg (219 lb 5.7 oz) SpO2 97% BMI 33.35 kg/m? PAST MEDICAL HISTORY Diagnosis Date Carpal tunnel syndrome DDD (degenerative disc disease), lumbar also neck Diverticulitis Dyskinesia of esophagus GERD (gastroesophageal reflux disease) Globus sensation Hiatal hernia IBS (irritable bowel syndrome) Low back pain Lumbar spondylosis Mixed hyperlipidemia NAFLD (nonalcoholic fatty liver disease) Neck pain Numbness of fingers of both hands Osteoarthritis of multiple joints bilateral hip joints Seizure disorder (HCC) 08/09/1989 related to elavil PAST SURGICAL HISTORY Procedure Laterality Date COLONOSCOPY 11/23/2017 repeat in 10 years COLONOSCOPY 01/07/2023 EGD 11/23/2017 EGD 01/07/2023 EGD TRANSORAL BIOPSY SINGLE/MULTIPLE 10/06/2010 ESOPHAGOGASTRODUODENOS COPY TRANSORAL DIAGNOSTIC 01/05/2014 EGD NEUROPLASTY AND/TRANSPOS MEDIAN NRV CARPAL TUNNE 03/22/2013 Carpal tunnel decomp - right PAST SURGICAL HISTORY OF hernia surgery, Lt inguinal ALLERGIES Elavil [Amitriptyline Hcl] MEDICATIONS omeprazole (PRILOSEC) 20 mg capsule Take 40 mg by mouth once daily. divalproex ER (DEPAKOTE ER) 500 mg 24 hr tablet Take 1,000 mg by mouth daily at bedtime. (more content not included)... [facility] Colonoscopyon 01-07-2023 Colonoscopy [facility] Gastrointestinal Endoscopy Patient Name: Clifford Horn Procedure Date: 01/07/2023 12:32 PM Date of : 1965 Admit Type: Outpatient Age: 57 Gender: Male Note Status: Finalized Procedure: Colonoscopy - screening high risk Indications: High risk colon cancer surveillance: Personal history of colonic polyps Providers: Zaira Murphy MD Patient Profile: Refer to note in patient chart for documentation of history and physical. Last Colonoscopy: 5 years ago. Referring Physician: Loren Springer (pa) (Referring MD), Medicines: See the other procedure note for documentation of the administered medications, Midazolam 2 mg IV Complications: No immediate complications. Requesting Provider: Procedure: Pre-Anesthesia Assessment: - Prior to the procedure, a History and Physical was performed, and patient medications and allergies were reviewed. The patient is competent. The risks and benefits of the procedure and the sedation options and risks were discussed with the patient. All questions were answered and informed consent was obtained. Patient identification and proposed procedure were verified by the physician in the pre-procedure area. Mental Status Examination: alert and oriented. Airway Examination: normal oropharyngeal airway and neck mobility. Respiratory Examination: clear to auscultation. CV Examination: normal. Prophylactic Antibiotics: The patient does not require prophylactic antibiotics. Prior Anticoagulants: The patient has taken no anticoagulant or antiplatelet agents. ASA Grade Assessment: II - A patient with mild systemic disease. After reviewing the risks and benefits, the patient was deemed in satisfactory condition to undergo the procedure. The anesthesia plan was to use moderate sedation / analgesia (conscious sedation). Immediately prior to administration of medications, the patient was re-assessed for adequacy to receive sedatives. The heart rate, respiratory rate, oxygen saturations, blood pressure, adequacy of pulmonary ventilation, and response to care were monitored throughout the procedure. The physical status of the patient was re-assessed after the procedure. After I obtained informed consent, the scope was passed under direct vision. Throughout the procedure, the patient's blood pressure, pulse, and oxygen saturations were monitored continuously. The Colonoscope was introduced through the anus and advanced to the cecum, identified by the appendiceal orifice, IC valve and transillumination. The colonoscopy was performed without difficulty. The patient tolerated the procedure well. The quality of the bowel preparation was suboptimal. There was still retained fecal material which required lavage and aspiration to visualize the winslow adequately. This was done, but took some time, however, the winslow were visualized adequately. The appendiceal orifice and the rectum were photographed. Moderate Sedation: See the other procedure note for documentation of moderate sedation with intraservice time. The administration of moderate sedation was initiated at 13:08 PM. Moderate (conscious) sedation was personally administered by the endoscopist. The following parameters were monitored: oxygen saturation, heart rate, blood pressure, respiratory rate, EKG, adequacy of pulmonary ventilation, and response to care. Findings: The perianal and digital rectal examinations were normal. Non-bleeding internal hemorrhoids were found. A 1 to 2 mm polyp was found in the sigmoid colon. The polyp was sessile. The polyp was removed with a cold biopsy forceps. Resection and retrieval were complete. Verification of patient identification for the specimen was done by the nurse. Estimated blood loss was minimal. A few small-mouthed diverticula were found in the sigmoid colon. Impression: - Non-bleeding internal hemorrhoids. - One 1 to 2 mm polyp in the sigmoid colon, removed with a cold biopsy forceps. Resected and retrieved. - Diverticulosis in the sigmoid colon. Recommendation: - Discharge patient to home (ambulatory). - Resume previous diet. - Continue present medications. - Await pathology results. - Follow up with Loren Springer PA-C via televisit for discussion of pathology results and determination of timing of future endoscopies - Patient has a contact number available for emergencies. The signs and symptoms of potential delayed complications were discussed with the patient. Return to normal activities tomorrow. Written discharge instructions were provided to the patient. - Repeat colonoscopy is recommended for surveillance. The colonoscopy date will be determined after pathology results from today's exam become available for review. Procedure Code(s): --- Professional --- 28253, Colonoscopy, flexible; with biopsy, single or multiple Diagnosis Code(s): --- Professional --- K57.30, (more content not included)... [facility] HISTORY PHYSICALon 3 HISTORY PHYSICAL HNO ID: [id number] Author: Zaira Murphy MD Service: General Surgery Author Type: Physician Type: HANDP Filed: 01/07/2023 12:03 PM Note Text: HISTORY AND PHYSICAL Clifford Horn 1965 REFERRING PHYSICIAN: Lv Ga CHIEF COMPLAINT: Consult (Colonoscopy consult) HPI: The patient is a 57 year old male referred for endoscopy. Clifford notes an episode of diverticulitis for which he was treated in August 2022-seen at [facility] and [facility]. Notes symptoms resolved completely with oral Augmentin. Patient denies any change in bowel habits, weight changes, blood in stools, black tarry stools or abdominal pain. Denies family history of colon issues. The patient NOTES upper GI complaints including frequent throat clearing and acid reflux. Denies having previous EGD. Clifford has undergone prior endoscopy. Last colonoscopy 11/23/17. No polyps. BBPS 5. Patient denies problems with sedation in the past. PAST MEDICAL HISTORY PAST MEDICAL HISTORY Diagnosis Date Carpal tunnel syndrome DDD (degenerative disc disease), lumbar also neck Diverticulitis Dyskinesia of esophagus GERD (gastroesophageal reflux disease) Globus sensation Hiatal hernia IBS (irritable bowel syndrome) Low back pain Lumbar spondylosis Mixed hyperlipidemia NAFLD (nonalcoholic fatty liver disease) Neck pain Numbness of fingers of both hands Osteoarthritis of multiple joints bilateral hip joints Seizure disorder (HCC) 08/09/1989 related to elavil PAST SURGICAL HISTORY PAST SURGICAL HISTORY Procedure Laterality Date COLONOSCOPY 11/23/2017 repeat in 10 years EGD 11/23/2017 EGD TRANSORAL BIOPSY SINGLE/MULTIPLE 10/06/2010 ESOPHAGOGASTRODUODENOS COPY TRANSORAL DIAGNOSTIC 01/05/2014 EGD NEUROPLASTY AND/TRANSPOS MEDIAN NRV CARPAL TUNNE 03/22/2013 Carpal tunnel decomp - right PAST SURGICAL HISTORY OF hernia surgery, Lt inguinal CURRENT MEDICATIONS Current Outpatient Medications Medication Sig omeprazole (PRILOSEC) 20 mg capsule Take 40 mg by mouth once daily. simvastatin (ZOCOR) 20 mg tablet Take 20 mg by mouth daily at bedtime. divalproex ER (DEPAKOTE ER) 500 mg 24 hr tablet Take 1,000 mg by mouth daily at bedtime. loperamide (IMODIUM A-D) 1 mg/7.5 mL oral liquid TAKE 7.5ML BY MOUTH FOUR TIMES A DAY NEEDED FOR DIARRHEA [id number] min D3 500 mg-5 mcg (200 unit) per tablet Take 1 tablet by mouth once daily. No current facility-administered medications for this visit. ALLERGIES: Elavil [Amitriptyline Hcl] PERSONAL HISTORY: SOCIAL HISTORY Social History Tobacco Use Smoking status: Never Smokeless tobacco: Never Vaping Use Vaping Use: Never used Substance Use Topics Alcohol use: Yes Comment: rarely, once monthly Drug use: No FAMILY HISTORY: FAMILY HISTORY FAMILY HISTORY Problem Relation Age of Onset Emphysema Mother Heart Father [place] age 69 Colon Cancer Maternal Grandfather 90 REVIEW OF SYMPTOMS: The review of systems data was entered by the nurse and reviewed by ut Nursing Notes: Ina Hernandez RN 12/23/2022 10:15 AM Signed REVIEW OF SYSTEMS: General: The patient denies fatigue, denies weight loss, denies weight gain, denies feeling hot, and denies feelings of cold. Eyes: The patient denies glaucoma, denies eye injury/surgery, wears glasses or contacts. Ear/Nose/Throat: The patient NOTES allergies, denies hayfever, denies ear infections, and denies bloody noses. Cardiovascular: The patient denies chest pain, denies heart disease, denies high blood pressure,denies cardiac stent, denies prior heart attack, denies irregular heart beat, NOTES high cholesterol, denies poor circulation, denies heart failure, other cardiac issues, denies claudication, denies cold feet, denies peripheral arterial stent. Respiratory: The patient denies tuberculosis, denies pneumonia, denies frequent cough, denies pulmonary embolism, denies shortness of breath, and denies coughing up blood. Gastrointestinal: The patient denies difficulty swallowing, NOTES acid reflux, denies ulcers, denies vomiting, denies jaundice/hepatitis, denies gallbladder problems, denies black or tarry stools, denies hemorrhoids, denies bleeding from rectum, NOTES diverticulitis, denies constipation, denies diarrhea, denies loss of stool control, and NOTES hernias. Kidney/Bladder: The patient denies kidney stones, denies urine infections, and denies bloody urine. Skin: The patient denies a history of skin cancer, denies bleeding/changing moles, and denies a history of skin rash. Neurologic: The patient NOTES a history of epilepsy/convulsions, denies headaches, denies head/spinal injuries, and denies stroke/TIA. Psychiatric: The patient denies psychiatric medications, denies depression, and denies voices, denies substance abuse. Endocrine: The patient denies thyroid disorders, denies diabetes, and den (more content not included)... [facility] NURSING PROGon 01-07-2023 NURSING PROG HNO ID: [id number] Author: Liudmila Neumann RN Service: ? Author Type: Registered Nurse Type: Nursing Progress Note Filed: 01/07/2023 2:45 PM Note Text: Arrived in phase II via cart. Left lateral position. Sedated, but responds to verbal stimuli. Color normal; skin warm and dry. Respirations wnl and unlabored. Abdomen soft and with + bowel sounds in quads X 4. Patient resting comfortably. Family at bedside. Liudmila Neumann RN [facility] SURGICAL PATHOLOGYon 023 CASE REPORT [facility] Comment on above: Order Comment: Speci men Type: TISSUE SPECIMEN Ordering Facility: [facility] Address: [address] [place] [id number] Result Comment: Surg ical Pathology Report Case: [id number] Authorizing Provider: Zaira Murphy MD Collected: 01/07/2023 12:56 PM Ordering Location: Ambulatory Surgery Received: 01/07/2023 03:49 PM Pathologist: Cameron Bosch MD Specimens: A) - ANTRUM (STOMACH) BIOPSY, Antral bx h/h B) - ESOPHAGOGASTRIC JUNCTION BIOPSY, GE junction bx C) - ESOPHAGUS MID BIOPSY D) - SIGMOID COLON POLYP Performed By: #### S #### [facility] CLIA [id number] [address] [facility] [address] [place] FINAL DIAGNOSIS [facility] Comment on above: Order Comment: Speci men Type: TISSUE SPECIMEN Ordering Facility: [facility] Address: [address] [place] [id number] Result Comment: Demetris turcios, antrum, biopsy: - Gastric antral mucosa with mild chronic inactive gastritis. - No evidence of Helicobacter pylori organisms on H&E stain. B. Esophagogastric junction, biopsy: - Gastric glandular mucosa with acute and chronic inflammation. - Negative for intestinal metaplasia and dysplasia. C. Esophagus, mid, biopsy: - Squamous mucosa with no significant histopathologic findings. - No evidence of increased intraepithelial eosinophils. D. Colon, sigmoid polyp, biopsy: - Colonic mucosa with mild hyperplastic change. Performed By: #### S #### [facility] CLIA [id number] [address] [place] [address] OF [facility] FINAL PERFORMING LAB [facility] Comment on above: Order Comment: Speci men Type: TISSUE SPECIMEN Ordering Facility: [facility] Address: [address] [place] [address] Result Comment: Diag nostic interpretation performed at [place] [address] CLIA# [id number] [employer] Worker: Marky Tafoya M.D. Performed By: #### S #### [facility] CLIA [id number] [address] [place] [address] GROSS DESCRIPTION [facility] Comment on above: Order Comment: Speci men Type: TISSUE SPECIMEN Ordering Facility: [facility] Address: [address] [place] [address] Result Comment: A. A NTRUM (STOMACH) BIOPSY Received in formalin is one piece of shine, soft tissue measuring 0.3 x 0.2 x 0.2 cm. Totally submitted in one cassette. B. ESOPHAGOGASTRIC JUNCTION BIOPSY Received in formalin is one piece of shine-brown, soft tissue measuring 0.3 x 0.2 x 0.2 cm. Totally submitted in one cassette. C. ESOPHAGUS MID BIOPSY Received in formalin are two pieces of shine-white, soft tissue aggregating to 0.4 x 0.2 x 0.1 cm. Totally submitted in one cassette. D. SIGMOID COLON POLYP Received in formalin are two pieces of shine, soft tissue aggregating to 0.4 x 0.1 x 0.1 cm. Totally submitted in one cassette. Gross examination performed at [place] [id number] [place] January 08, 2023 12:51 AM Performed By: #### S #### [facility] CLIA [id number] [address] [place] [address] [place] [id number] [place] Upper GI endoscopyon 023 Upper GI endoscopy Josie [facility] Gastrointestinal Endoscopy Patient Name: Clifford Horn Procedure Date: 01/07/2023 12:33 PM Date of : 1965 Admit Type: Outpatient Age: 57 Gender: Male Note Status: Finalized Procedure: Upper GI endoscopy Indications: Dysphagia, Heartburn Providers: Zaira Murphy MD Patient Profile: Refer to note in patient chart for documentation of history and physical. Referring Physician: Loren Springer (pa) (Referring MD) Medicines: Midazolam 5 mg IV, Fentanyl 50 micrograms IV, Diphenhydramine 50 mg IV, Benzocaine spray, See the other procedure note for documentation of the administered medications Complications: No immediate complications. Requesting Provider: Procedure: Pre-Anesthesia Assessment: - Prior to the procedure, a History and Physical was performed, and patient medications and allergies were reviewed. The patient is competent. The risks and benefits of the procedure and the sedation options and risks were discussed with the patient. All questions were answered and informed consent was obtained. Patient identification and proposed procedure were verified by the physician in the pre-procedure area. Mental Status Examination: alert and oriented. Airway Examination: normal oropharyngeal airway and neck mobility. Respiratory Examination: clear to auscultation. CV Examination: normal. Prophylactic Antibiotics: The patient does not require prophylactic antibiotics. Prior Anticoagulants: The patient has taken no anticoagulant or antiplatelet agents. ASA Grade Assessment: II - A patient with mild systemic disease. After reviewing the risks and benefits, the patient was deemed in satisfactory condition to undergo the procedure. The anesthesia plan was to use moderate sedation / analgesia (conscious sedation). Immediately prior to administration of medications, the patient was re-assessed for adequacy to receive sedatives. The heart rate, respiratory rate, oxygen saturations, blood pressure, adequacy of pulmonary ventilation, and response to care were monitored throughout the procedure. The physical status of the patient was re-assessed after the procedure. After obtaining informed consent, the endoscope was passed under direct vision. Throughout the procedure, the patient's blood pressure, pulse, and oxygen saturations were monitored continuously. The Endoscope was introduced through the mouth, and advanced to the second part of duodenum. The upper GI endoscopy was accomplished without difficulty. The patient tolerated the procedure well. Moderate Sedation: See the other procedure note for documentation of moderate sedation with intraservice time. The administration of moderate sedation was initiated at 12:50 PM. Moderate (conscious) sedation was personally administered by the endoscopist. The following parameters were monitored: oxygen saturation, heart rate, blood pressure, respiratory rate, EKG, adequacy of pulmonary ventilation, and response to care. Findings: The first portion of the duodenum and second portion of the duodenum were normal. Striped mildly erythematous mucosa without bleeding was found in the gastric antrum. Biopsies were taken with a cold forceps for histology. Verification of patient identification for the specimen was done by the nurse. Estimated blood loss was minimal. A small hiatal hernia was present. Biopsies were taken with a cold forceps for histology of the GE junction and the mid esophagus. Verification of patient identification for the specimen was done by the nurse. Estimated blood loss was minimal. Impression: - Normal first portion of the duodenum and second portion of the duodenum. - Erythematous mucosa in the antrum. Biopsied. - Small hiatal hernia. Biopsied at GE junction and the mid esophagus. Recommendation: - Discharge patient to home (ambulatory). - Resume previous diet. - Continue present medications. - Await pathology results. - Follow up with Loren Springer PA-C via televisit for discussion of pathology results and determination of timing of future endoscopies Procedure Code(s): --- Professional --- 37714, Esophagogastroduodenos copy, flexible, transoral; with biopsy, single or multiple Diagnosis Code(s): --- Professional --- R12, Heartburn R13.10, Dysphagia, unspecified K44.9, Diaphragmatic hernia without obstruction or gangrene K31.89, Other diseases of stomach and duodenum CPT copyright 2020 [employer]. All rights reserved. The codes documented in this report are preliminary and upon machine i engraver review may be revised to meet current compliance requirements. Attending Participation: I personally performed the entire procedure. Scope In: 12:53:34 PM Scope Out: 1:00:43 PM MD Zaira Campos MD 01/07/2023 1:04:38 PM This report has been signed electronically by Zaira Murphy MD Number of Addenda: 0 Note Init (more content not included)... [facility] CNOVon 12-23-2022 CNOV Office Visit (GENSWS ) JUSTINACLIFFORD ([id number]) 1965 M Date Time Provider Department 12/23/22 9:00 AM LOREN SPRINGER During your visit today, we recorded the following information about you: Temperature Pulse Blood pressure Weight 97.7 degrees 66/minute 142/80 95.5 kg Height 1.727 m Loren Springer PA-C 12/29/2022 12:54 PM Addendum HISTORY AND PHYSICAL Clifford Denny Justina 1965 REFERRING PHYSICIAN: Lv, [place] CHIEF COMPLAINT: Consult (Colonoscopy consult) HPI: The patient is a 57 year old male referred for endoscopy. Clifford notes an episode of diverticulitis for which he was treated in August 2022-seen at [facility] Notes symptoms resolved completely with oral Augmentin. Patient denies any change in bowel habits, weight changes, blood in stools, black tarry stools or abdominal pain. Denies family history of colon issues. The patient NOTES upper GI complaints including frequent throat clearing and acid reflux. Denies having previous EGD. Clifford has undergone prior endoscopy. Last colonoscopy 11/23/17. No polyps. BBPS 5. Patient denies problems with sedation in the past. PAST MEDICAL HISTORY Diagnosis Date Carpal tunnel syndrome DDD (degenerative disc disease), lumbar also neck Diverticulitis Dyskinesia of esophagus GERD (gastroesophageal reflux disease) Globus sensation Hiatal hernia IBS (irritable bowel syndrome) Low back pain Lumbar spondylosis Mixed hyperlipidemia NAFLD (nonalcoholic fatty liver disease) Neck pain Numbness of fingers of both hands Osteoarthritis of multiple joints bilateral hip joints Seizure disorder (HCC) 08/09/1989 related to elavil PAST SURGICAL HISTORY Procedure Laterality Date COLONOSCOPY 11/23/2017 repeat in 10 years EGD 11/23/2017 EGD TRANSORAL BIOPSY SINGLE/MULTIPLE 10/06/2010 ESOPHAGOGASTRODUODENOS COPY TRANSORAL DIAGNOSTIC 01/05/2014 EGD NEUROPLASTY AND/TRANSPOS MEDIAN NRV CARPAL TUNNE 03/22/2013 Carpal tunnel decomp - right PAST SURGICAL HISTORY OF hernia surgery, Lt inguinal Current Outpatient Medications Medication Sig omeprazole (PRILOSEC) 20 mg capsule Take 40 mg by mouth once daily. simvastatin (ZOCOR) 20 mg tablet Take 20 mg by mouth daily at bedtime. divalproex ER (DEPAKOTE ER) 500 mg 24 hr tablet Take 1,000 mg by mouth daily at bedtime. loperamide (IMODIUM A-D) 1 mg/7.5 mL oral liquid TAKE 7.5ML BY MOUTH FOUR TIMES A DAY NEEDED FOR DIARRHEA [id number]-[id number] min D3 500 mg-5 mcg (200 unit) per tablet Take 1 tablet by mouth once daily. No current facility-administered medications for this visit. ALLERGIES: Elavil [Amitriptyline Hcl] PERSONAL HISTORY: Social History Tobacco Use Smoking status: Never Smokeless tobacco: Never Vaping Use Vaping Use: Never used Substance Use Topics Alcohol use: Yes Comment: rarely, once monthly Drug use: No FAMILY HISTORY: FAMILY HISTORY Problem Relation Age of Onset Emphysema Mother Heart Father [place] age 69 Colon Cancer Maternal Grandfather 90 REVIEW OF SYMPTOMS: The review of systems data was entered by the nurse and reviewed by ut Nursing Notes: Ina Hernandez RN 12/23/2022 10:15 AM Signed REVIEW OF SYSTEMS: General: The patient denies fatigue, denies weight loss, denies weight gain, denies feeling hot, and denies feelings of cold. Eyes: The patient denies glaucoma, denies eye injury/surgery, wears glasses or contacts. Ear/Nose/Throat: The patient NOTES allergies, denies hayfever, denies ear infections, and denies bloody noses. Cardiovascular: The patient denies chest pain, denies heart disease, denies high blood pressure,denies cardiac stent, denies prior heart attack, denies irregular heart beat, NOTES high cholesterol, denies poor circulation, denies heart failure, other cardiac issues, denies claudication, denies cold feet, denies peripheral arterial stent. Respiratory: The patient denies tuberculosis, denies pneumonia, denies frequent cough, denies pulmonary embolism, denies shortness of breath, and denies coughing up blood. Gastrointestinal: The patient denies difficulty swallowing, NOTES acid reflux, denies ulcers, denies vomiting, denies jaundice/hepatitis, denies gallbladder problems, denies black or tarry stools, denies hemorrhoids, denies bleeding from rectum, NOTES diverticulitis, denies constipation, denies diarrhea, denies loss of stool control, and NOTES hernias. Kidney/Bladder: The patient denies kidney stones, denies urine infections, and denies bloody urine. Skin: The patient denies a history of skin cancer, denies bleeding/changing moles, and denies a history of skin rash. Neurologic: The patient NOTES a history of epilepsy/convulsions, denies headaches, denies head/spinal injuries, and denies stroke/TIA. Psychiatric: Th (more content not included)... Normal [facility] ([employer]) CLIFFORD HORN ([id number]) 1965 M Date Time Provider Department 12/17/22 [facility] During your visit today, we recorded the following information about you: Jacqui Stevens 12/17/2022 9:58 AM Signed [facility] if [facility] received the orders for pt to have colonoscopy. Please verify the orders are correct in scanned documents. Essie Grant RN 12/17/2022 10:13 AM Signed Printed referral from Scanned docs and gave to Bobbi to contact Pt for an appointment.Essie Grant RN Allergies As of Date: 12/17/2022 Noted Allergy Reaction ELAVIL (AMITRIPTYLINE HCL) 10/15/2005 1 - Mental Status Change Comments: siezure Date Reviewed: 09/04/2022 Reviewed by: Pema Zaragoza LPN - Fully Assessed Reason for Visit: Orders [681] Prescriptions as of 12/17/2022 - omeprazole (PRILOSEC) 20 mg capsule 40 mg. - simvastatin (ZOCOR) 20 mg tablet - divalproex ER (DEPAKOTE ER) 500 mg 24 hr tablet 1,000 mg. - loperamide (IMODIUM A-D) 1 mg/7.5 mL oral liquid TAKE 7.5ML BY MOUTH FOUR TIMES A DAY NEEDED FOR DIARRHEA - arczxgd-ilbgaxlsg-ynpp min D3 500 mg-5 mcg (200 unit) per tablet Take 1 tablet by mouth twice daily. 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] 10/06/2010 Seizure disorder [G40.909] 06/02/2011 Elevated LFTs [R79.89] 06/03/2011 Other and unspecified hyperlipidemia [E78.5] 01/25/2012 Carpal tunnel syndrome, right [G56.01] 02/23/2013 Carpal tunnel syndrome, left [G56.02] 02/23/2013 Right tennis elbow [M77.11] 02/23/2013 Encounter Status:Closed by ESSIE GRANT on 12/17/22 Normal [facility] Absolute lymphocyte countOrd ered By: ED PROVIDER on 09-04-2022 Lymphocytes Auto (Unsp spec) [#/Vol] 2.42 10*3/uL 0.83-4.51 [facility] Basophil percentageOrdered B y: ED PROVIDER on 09-04-2022 Basophil percentage 0 SEEN /hpf 0-[address] [facility] Basophils/100 WBC (Bld) 0.2 % 0-1 [facility] Chloride [Moles/Vol] 102 mmol/L 98-[address] [facility] Eosinophils/100 WBC (Bld) 1.6 % 0-5 [facility] Glucose [Mass/Vol] 80 mg/dL 74-106 [facility] Neutrophils (Bld) [#/Vol] 5.2 10*3/uL 2.0-7.7 [facility] Neutrophils/100 WBC (Bld) 59.8 % 47-70 [facility] Potassium [Moles/Vol] 4.1 mmol/L 3.5-5.1 [facility] Sodium [Moles/Vol] 138 mmol/L 136-145 [facility] WBC (Bld) [#/Vol] 8.8 10*3/uL 4.4-11.0 [facility] Bilirubin Test strip Ql (U)O rdered By: ED PROVIDER on 09-04-2022 Bilirubin Ql (U) Negative Negative [facility] Blood erythrocytes count (nu mber/volume)Ordered By: ED PROVIDER on 09-04-2022 RBC (Bld) [#/Vol] 4.95 10*6/uL 4.6-6.2 [facility] Blood hemoglobin measurement (mass/volume)Ordered By: ED PROVIDER on 09-04-2022 Hemoglobin (Bld) [Mass/Vol] 14.9 g/dL 13.0-16.5 [facility] Blood lymphocytes/100 leukoc ytesOrdered By: ED PROVIDER on 09-04-2022 Lymphocytes/100 WBC (Bld) 27.6 % 19-41 [facility] Blood monocytes/100 leukocyt esOrdered By: ED PROVIDER on 09-04-2022 Monocytes/100 WBC (Bld) 10.6 % 0-10 [facility] Blood platelet mean volumeOr dered By: ED PROVIDER on 09-04-2022 Platelet mean volume (Bld) [Entitic vol] 9.0 fL 6.2-12.0 [facility] Determination of erythrocyte mean corpuscular volume (MCV)Ordered By: ED PROVIDER on 09-04-2022 MCV (RBC) [Entitic vol] 86.9 fL 80-94 [facility] Hematocrit Auto (Bld) [Volum e fraction]Ordered By: ED PROVIDER on 09-04-2022 Hematocrit (Bld) [Volume fraction] 43.0 % 40-54 [facility] Ketones Test strip Ql (U)Ord ered By: ED PROVIDER on 09-04-2022 Ketones Ql (U) 15 mg/dl Negative [facility] Laboratory - Chemistry and C hemistry - challengeOrdered By: ED PROVIDER on 09-04-2022 CO2 [Moles/Vol] 27.0 mmol/L 21.0-32.0 [facility] Urea nitrogen/Creatinine [Mass ratio] 11.8 mg/mg 10-20 [facility] Laboratory - Hematology and Cell countsOrdered By: ED PROVIDER on 09-04-2022 Erythrocyte distribution width (RBC) [Entitic vol] 39.4 fL 35.1-43.9 [facility] Erythrocyte distribution width (RBC) [Ratio] 12.3 % 11.6-14.6 [facility] Immature granulocytes/100 WBC (Bld) 0.200 % 0.0-0.9 [facility] Comment on above: IG% - Immature Granu locytes (promyelocytes, myelocytes and metamyelocytes) > 1% indicates that a LEFT SHIFT is Present. MCH (RBC) [Entitic mass] 30.1 pg 27.0-32.0 [facility] Nucleated RBC/100 WBC (Bld) [Ratio] 0 % 0-5 [facility] MCHC Auto (RBC) [Mass/Vol]Or dered By: ED PROVIDER on 09-04-2022 MCHC (RBC) [Mass/Vol] 34.7 g/dL 32-36 [facility] Mucus LM Ql (Urine sed)Order ed By: ED PROVIDER on 09-04-2022 Mucus Ql (Urine sed) 0 SEEN /hpf [facility] Nitrite Test strip Ql (U)Ord ered By: ED PROVIDER on 09-04-2022 Nitrite Ql (U) Negative Negative [facility] No Panel InformationOrdered By: ED PROVIDER on 09-04-2022 Estimated Creatinine Clearance Calc 72.55 ml/min [facility] Estimated GFR (MDRD) Amer 89 mL/min >60 [facility] Comment on above: GFR Calc Estimated GFR (MDRD) Non-Af Amer 73 mL/min >60 [facility] Comment on above: Non- GFR Calc Platelets bldOrdered By: ED PROVIDER on 09-04-2022 Platelets (Bld) [#/Vol] 256 10*3/uL 150-450 [facility] Protein Test strip Ql (U)Ord ered By: ED PROVIDER on 09-04-2022 Protein Ql (U) 30 mg/dl Negative [facility] Serum or plasma calcium seema urement (mass/volume)Ordered By: ED PROVIDER on 09-04-2022 Calcium [Mass/Vol] 9.3 mg/dL 8.5-10.1 [facility] Serum or plasma creatinine m easurement (mass/volume)Ordered By: ED PROVIDER on 09-04-2022 Creatinine [Mass/Vol] 1.10 mg/dL 0.70-1.30 [facility] Comment on above: The validity of the calculated GFR & GFRAA in patients over 70 years has not been determined. Clinical correlation is essential. Serum or plasma urea nitroge n measurement (mass/volume)Ordered By: ED PROVIDER on 09-04-2022 Urea nitrogen [Mass/Vol] 13 mg/dL 7-18 [facility] Squamous epithelial cells de tection in urine sediment by light microscopyOrdered By: ED PROVIDER on 09-04-2022 Epithelial cells.squamous LM Ql (Urine sed) 0 SEEN /hpf 0-5 [facility] Thin prep Papanicolaou smear with manual screeningOrdered By: ED PROVIDER on 09-04-2022 Thin prep Papanicolaou smear with manual screening 9 5-15 [facility] Urine blood detectionOrdered By: ED PROVIDER on 09-04-2022 RBC Ql (U) Negative Negative [facility] RBC Ql (U) 0 SEEN /hpf 0-5 [facility] Urine clarityOrdered By: ED PROVIDER on 09-04-2022 Clarity (U) Clear Clear [facility] Urine color determinationOrd ered By: ED PROVIDER on 09-04-2022 Color (U) Yellow Yellow [facility] Urine glucose detectionOrder ed By: ED PROVIDER on 09-04-2022 Glucose Ql (U) Normal mg/dl Normal [facility] Urine leukocyte esterase det ection by dipstickOrdered By: ED PROVIDER on 09-04-2022 Leukocyte esterase Test strip Ql (U) Negative Negative [facility] Urine pHOrdered By: ED PROVI HALEY on 09-04-2022 pH (U) 7.0 [pH] 5.0 - 8.0 [facility] Urine sediment bacteria coun t by microscopy (number/high power field)Ordered By: ED PROVIDER on 09-04-2022 Bacteria LM.HPF (Urine sed) [#/Area] 0 /[HPF] None Seen [facility] Urine specific gravity measu rementOrdered By: ED PROVIDER on 09-04-2022 Specific gravity (U) [Rel density] 1.010 1.002-1.030 [facility] Urobilinogen Auto test strip Ql (U)Ordered By: ED PROVIDER on 09-04-2022 Urobilinogen Ql (U) 8 mg/dl Normal [facility] XR Ankle - left AP and Later al and obliqueon 12-02-2021 IMPRESSION: Healing medial malleolar avulsion fracture without interval complication. [employer] Esc[employer]: PSCB Transcribe Date/Time: Dec 02 2021 5:57P Dictated by : RUTH MUÑIZ MD This examination was interpreted and the report reviewed and electronically signed by: RUTH MUÑIZ MD on Dec 02 2021 5:59PM EST RonnieZZ_DO_NOT_U SE_DIVISION OF RADIOLOGY * * *Final Report* * * DATE OF EXAM: Dec 02 2021 5:45PM WOX 5298 - XR ANKLE 3V AP/LAT/OBL LT / PROCEDURE REASON: Closed nondisplaced fracture of medial malleolus of left tibia, initial encounte * * * * Physician Interpretation * * * * EXAMINATION: XR ANKLE 3V AP/LAT/OBL LT HISTORY: Follow-up Closed nondisplaced fracture of medial malleolus of left tibia, subsequentencounter. TECHNIQUE: XR ANKLE 3V AP/LAT/OBL LT Laterality: LEFT Number of different views (projections): 3 M: XB_1 COMPARISON: Comparison is made to prior ankle dated 11/10/2021 RESULT: Standing frontal radiographs of the bilateral ankles with oblique and lateral weightbearing views of the left ankle show no acute osseous, articular or soft tissue process. Radiograph shows no significant interval change in the appearance of the tiny nondisplaced avulsion fracture adjacent to the inferior medial malleolus. Mortise and syndesmosis remain preserved. [id number]_U SE_DIVISION OF RADIOLOGY Provider, [facility] - 12/02/2021 * * *Final Report* * * DATE OF EXAM: Dec 02 2021 5:45PM WOX 5298 - XR ANKLE 3V AP/LAT/OBL LT / PROCEDURE REASON: Closed nondisplaced fracture of medial malleolus of left tibia, initial encounte * * * * Physician Interpretation * * * * EXAMINATION: XR ANKLE 3V AP/LAT/OBL LT HISTORY: Follow-up Closed nondisplaced fracture of medial malleolus of left tibia, subsequentencounter. TECHNIQUE: XR ANKLE 3V AP/LAT/OBL LT Laterality: LEFT Number of different views (projections): 3 M: XB_1 COMPARISON: Comparison is made to prior ankle dated 11/10/2021 RESULT: Standing frontal radiographs of the bilateral ankles with oblique and lateral weightbearing views of the left ankle show no acute osseous, articular or soft tissue process. Radiograph shows no significant interval change in the appearance of the tiny nondisplaced avulsion fracture adjacent to the inferior medial malleolus. Mortise and syndesmosis remain preserved. IMPRESSION IMPRESSION: Healing medial malleolar avulsion fracture without interval complication. [employer] Esc[employer]: KENNETH Transcribe Date/Time: Dec 02 2021 5:57P Dictated by : RUTH MUÑIZ MD This examination was interpreted and the report reviewed and electronically signed by: RUTH MUÑIZ MD on Dec 02 2021 5:59PM EST [facility] Radiology Study observation (narrative) [facility] XR Ankle - left AP and Later al and obliqueOrdered By: Ccf Provider on 12-02-2021 [facility] XR ANKLE GENERAL 3V AP/LAT/O BL LEFTon 11-10-2021 [facility] XR Ankle - left AP and Later al and obliqueon 10-03-2021 * * *Final Report* * * DATE OF EXAM: Oct 03 2021 8:13AM WOX 5298 - XR ANKLE 3V AP/LAT/OBL LT / PROCEDURE REASON: Acute left ankle pain * * * * Physician Interpretation * * * * Indication: Left ankle pain Comparison: None AP, lateral and oblique views of the left ankle are obtained. There is normal architecture mineralization of bone. There is a nondisplaced fracture of the distal aspect of the medial malleolus. This is best seen in the AP projection. No dislocation. Joint spaces are maintained. Impression: Nondisplaced fracture of the medial malleolus [employer] Escort[facility] Transcribe Date/Time: Oct 03 2021 8:28A Dictated by : CATALINA VIDAL MD This examination was interpreted and the report reviewed and electronically signed by: CATALINA VIDAL MD on Oct 03 2021 8:29AM EST DIVISION OF RADIOLOGY Provider, Mely Ray [facility] - 10/03/2021 * * *Final Report* * * DATE OF EXAM: Oct 03 2021 8:13AM WOX 5298 - XR ANKLE 3V AP/LAT/OBL LT / PROCEDURE REASON: Acute left ankle pain * * * * Physician Interpretation * * * * Indication: Left ankle pain Comparison: None AP, lateral and oblique views of the left ankle are obtained. There is normal architecture mineralization of bone. There is a nondisplaced fracture of the distal aspect of the medial malleolus. This is best seen in the AP projection. No dislocation. Joint spaces are maintained. Impression: Nondisplaced fracture of the medial malleolus [employer] Esc[employer]: [facility] Transcribe Date/Time: Oct 03 2021 8:28A Dictated by : CATALINA VIDAL MD This examination was interpreted and the report reviewed and electronically signed by: CATALINA VIDAL MD on Oct 03 2021 8:29AM EST [facility] Radiology Study observation (narrative) Michael mojica [facility] XR Ankle - left AP and Later al and obliqueOrdered By: Ccf Provider on 10-03-2021 [facility] Vital Signs Date Time Vital Sign Value Performing Clinician Facility 05-01-2025 15:06-0400 Body height 172.7 cm Zane Gonzalez MD Work Phone: [facility] 05-01-2025 15:06-0400 Body mass index (BMI) [Ratio] 31.04 kg/m2 Zane Gonzalez MD Work Phone: [facility] 05-01-2025 15:06-0400 Body temperature 97.81 [degF] Zane Gonzalez MD Work Phone: [facility] 05-01-2025 15:06-0400 Body weight 92.6 kg Zane Gonzalez MD Work Phone: [facility] 10-19-2023 16:52-0400 Body temperature 98.8 [degF] Marleny Praisler-Wood [employer]NA[employer] Work Phone: [facility] 10-19-2023 16:52-0400 Body weight 99.5 kg Marleny Praisler-Wood [employer] Work Phone: [facility] 10-19-2023 16:52-0400 Diastolic blood pressure 90 mm[Hg] Marleny Praisler-Wood [employer] Work Phone: [facility] 10-19-2023 16:52-0400 Heart rate 75 /min Marleny Praisler-Wood [employer] Work Phone: [facility] 10-19-2023 16:52-0400 Respiratory rate 20 /min Marleny Praisler-Wood SNA[employer] Work Phone: [facility] 10-19-2023 16:52-0400 SaO2% (BldA) [Mass fraction] 97 % Marleny Praisler-Wood SNA[employer]ER [employer] Work Phone: [facility] 10-19-2023 16:52-0400 Systolic blood pressure 150 mm[Hg] Marleny Praisler-Wood [employer]NA[employer] Work Phone: [facility] 12-23-2022 09:06-0400 Body height 172.7 cm Loren Gian PA-C Work Phone: [facility] 12-23-2022 09:06-0400 Body temperature 97.7 [degF] Loren Mulino PA-C Work Phone: [facility] 12-23-2022 09:06-0400 Body weight 95.53 kg Loren Mulino PA-C Work Phone: [facility] 12-23-2022 09:06-0400 Diastolic blood pressure 80 mm[Hg] Loren Gian PA-C Work Phone: [facility] 12-23-2022 09:06-0400 Heart rate 66 /min Loren Mulino PA-C Work Phone: [facility] 12-23-2022 09:06-0400 SaO2% (BldA) [Mass fraction] 98 % Loren Springer PA-C Work Phone: [facility] 12-23-2022 09:06-0400 Systolic blood pressure 142 mm[Hg] Loren BLANKENSHIP-Ilan Work Phone: [facility] 09-04-2022 21:48-0500 Heart rate 67 /min [facility] 09-04-2022 21:48-0500 Respiratory rate 16 /min [facility] 09-04-2022 21:48-0500 SaO2% (BldA) [Mass fraction] 98 % [facility] 09-04-2022 17:51-0500 Body height 172.72 cm [facility] 09-04-2022 17:51-0500 Body mass index (BMI) [Ratio] 31.1 kg/m2 [facility] 09-04-2022 17:51-0500 Body temperature 97.3 [degF] [facility] 09-04-2022 17:51-0500 Body weight 92.98 kg [facility] 09-04-2022 17:51-0500 Diastolic blood pressure 78 mm[Hg] [facility] 09-04-2022 17:51-0500 Systolic blood pressure 151 mm[Hg] [facility] 09-04-2022 17:12-0500 Body temperature 98.71 [degF] Nigel Chambers MD Work Phone: [facility] 09-04-2022 17:12-0500 Body weight 93.08 kg Nigel Chambers MD Work Phone: [facility] 09-04-2022 17:12-0500 Diastolic blood pressure 78 mm[Hg] Nigel Chambers MD Work Phone: [facility] 09-04-2022 17:12-0500 Heart rate 73 /min Nigel Chambers MD Work Phone: [facility] 09-04-2022 17:12-0500 Respiratory rate 16 /min Nigel Chambers MD Work Phone: [facility] 09-04-2022 17:12-0500 SaO2% (BldA) [Mass fraction] 98 % Nigel Chambers MD Work Phone: [facility] 09-04-2022 17:12-0500 Systolic blood pressure 136 mm[Hg] Nigel Chambers MD Work Phone: [facility] Encounters Encounter Date Encounter Type Care Provider Facility Start: 05-28-2025 ambulatory Shalonda Vizcarra [facility] ity:[facility] Start: 05-22-2025 [facility] Facility:[facility] Start: 05-01-2025 End: 05-01-2025 Subsequent hospital visit by physician Zane Gonzalez MD Work Phone: [facility] Comment on above: Arrived Start: 05-01-2025 End: 05-01-2025 Office outpatient new 30 minutes Zane Gonzalez MD Work Phone: [facility] Comment on above: Pain in both hands ( Primary Dx); Carpal tunnel syndrome, left Start: 05-01-2025 ambulatory [facility] Start: 11-27-2024 End: 11-27-2024 ambulatory Shalonda Vizcarra Facility:[facility] Start: 06-08-2024 End: 06-08-2024 [facility] Facility:[facility] Start: 10-19-2023 End: 10-19-2023 ambulatory [facility] Facility:[facility] Start: 10-19-2023 End: 10-19-2023 Patient encounter procedure Marleny Santiago APRN.CNP Work Phone: [facility] Comment on above: Bacterial sinusitis (Primary Dx) Start: 01-15-2023 End: 01-15-[address] [facility] Facility:[facility] Start: 01-07-2023 End: 01-07-2023 ambulatory LOREN SPRINGER Facility:[facility] Start: 12-23-2022 End: 12-23-2022 ambulatory LOREN SPRINGER Facility:[facility] Start: 12-23-2022 End: 12-23-2022 Patient encounter procedure Loren Springer PA-C Work Phone: General Surgery Comment on above: Diverticulitis (Prim thuy Dx); Gastroesophageal reflux disease, unspecified whether esophagitis present; Throat clearing Start: 12-17-2022 Telephone encounter Louis hardin MD Work Phone: General Surgery Comment on above: Orders Start: 09-04-2022 End: 09-04-2022 Emergency department patient visit [facility] Start: 09-04-2022 End: 09-04-2022 Patient encounter procedure Nigel Chambers MD Work Phone: [facility] Comment on above: Abdominal pain, lowe r (Primary Dx) Start: 12-09-2021 End: 12-09-2021 Patient encounter procedure [facility] Start: 12-03-2021 Telephone encounter David Selvin deshpande Work Phone: Podiatry Comment on above: Results Start: 12-02-2021 End: 12-02-2021 Subsequent hospital visit by physician Xr [facility] Work Phone: Radiology Comment on above: Closed nondisplaced fracture of medial malleolus of left tibia, initial encounter [S82.55XA] Start: 11-12-2021 Orders Only David wells Work Phone: Podiatry Comment on above: Closed nondisplaced fracture of medial malleolus of left tibia, initial encounter (Primary Dx) Results Start: 11-10-2021 End: 11-10-2021 Subsequent hospital visit by physician Xr [facility] Darci Work Phone: Radiology Comment on above: Closed nondisplaced fracture of medial malleolus of left tibia, initial encounter [S82.55XA] Start: 10-03-2021 End: 10-03-2021 Subsequent hospital visit by physician Xr [facility] Work Phone: Radiology Comment on above: Acute left ankle ja n [M25.572] Start: 09-20-2017 Orders Only Walt browne MD Work Phone: [facility] Comment on above: Special screening fo r malignant neoplasms, colon (Primary Dx) Procedures Date Procedure Procedure Detail Performing Clinician Start: 05-01-2025 Injection therapeuti c carpal tunnel Zane Gonzalez MD Work Phone: Start: 01-07-2023 Colonoscopy Marleny Peace APRN.FOOD TASTER Work Phone: Start: 09-04-2022 Computed tomography of abdomen and pelvis with intravenous contrast Start: 12-09-2021 Magnetic resonance angiography of neck without contrast Start: 12-09-2021 MRI of brain without contrast Start: 12-09-2021 Magnetic resonance angiography of head without contrast Start: 12-02-2021 Radex ankle complete minimum 3 views David Warren Work Phone: Start: 11-10-2021 Radex ankle complete minimum 3 views David Warren Work Phone: Start: 10-03-2021 Radex ankle complete minimum 3 views Haylee Cruz SNAPPER [employer]ER Work Phone: Start: 11-23-2017 Colonoscopy [facility] Work Phone: Start: 07-16-2017 Adult depression scr eening assessment [facility] Work Phone: Start: 07-16-2017 Lipid 1996 panel - S gila or Plasma Marleny Santiago SNAPPER [employer] Work Phone: Plan of Treatment Date Care Activity Detail Author Start: 01-07-2033 Screening for malign ant neoplasm of colon [facility] Start: 08-22-2025 End: 08-22-2025 Patient encounter procedure 08/22/2025 9:00 AM EST Office Visit [facility] [address] [place] [address] Zane Gonzalez MD [address] [place] [id number] [facility] Start: 04-30-2025 End: 04-30-2026 XR Hand - left 3 Views XR HAND LEFT 3+ VIEWS Imaging Routine Pain in both hands Expected: 04/30/2025, Expires: 04/30/2026 [facility] Comment on above: Expected: 04/30/2025 , Expires: 04/30/2026 Start: 04-09-2025 COVID-19 VACCINE ( season) COVID-19 VACCINE ( season) [facility] Start: 04-09-2025 Influenza vaccination INFLUENZA VACC INE (#1) [facility] Start: 04-09-2024 Covid-19 Vaccine ( season) Covid-19 Vaccine ( season) [facility] Start: 04-09-2024 Influenza vaccination Influenza Vacc ine (#1) [facility] Start: 08-09-2023 Depression Assessment Depression Ass essment [facility] Start: 04-09-2023 Covid-19 Vaccine ( season) Covid-19 Vaccine ( season) [facility] Start: 04-09-2023 Influenza vaccination C [facility] Start: 08-09-2022 DEPRESSION ASSESSMENT DEPRESSION ASS ESSMENT [facility] Start: 07-16-2022 Lipid panel Lipid Screening [facility] Start: 07-16-2022 LIPID SCREEN LIPID SCREEN [facility] Start: 07-16-2022 PROSTATE CANCER SCREENING DISCUSSION PROSTATE CANCER SCREENING DISCUSSION [facility] Start: 07-16-2022 Prostate specific antigen measurement Prostate Cancer Screening Discussion [facility] Start: 04-09-2022 Influenza vaccination C [facility] Start: 12-03-2021 End: 12-12-2022 XR ANKLE GENERAL 3V AP/LAT/OBL LEFT XR ANKLE GENERAL 3V AP/LAT/OBL LEFT Radiology Routine Closed nondisplaced fracture of medial malleolus of left tibia, initial encounter Expected: 12/03/2021, Expires: 12/12/2022 [facility] Work Phone: Comment on above: Expected: 12/03/2021 , Expires: 12/12/2022 Start: 2020 Prostate specific antigen measurement PROSTATE CANCER SCREENING DISCUSSION [facility] Start: 09-05-2020 Tetanus vaccination TETANUS [facility] Start: 09-05-2020 Urine microalbumin profile [facility] Start: 07-16-2020 DIABETES SCREEN DIABETES SCREEN [facility] Start: 07-16-2020 Diabetes Screening Diabetes Screenin g [facility] Start: 11-23-2018 Colonoscopy COLONOSCOPY [facility] Start: 11-23-2018 COLORECTAL CANCER SCREENING COLORECTAL CANCER SCREENING [facility] Start: 11-23-2018 Screening for malign ant neoplasm of colon COLORECTAL CANCER SCREENING DISCUSSION [facility] Start: 07-16-2018 Adult depression screening assessment DEPRESSION SCREENING [facility] Start: 2015 Pneumococcal vaccination PNEUMOCOCCAL VACCINE SERIES (1 of 1 - PCV) [facility] Start: 2015 SHINGRIX VACCINE (1 of 2) SHINGRIX VACCINE (1 of 2) [facility] Start: 2010 COLOGUARD (FIT-DNA) COLOGUARD (FIT-D NA) [facility] Start: [address] COLONOGRAPHY [facility] Start: 2010 FECAL OCCULT BLOOD FECAL OCCULT BLOO D [facility] Start: 2010 Screening for malign ant neoplasm of colon [facility] Start: 2010 SIGMOIDOSCOPY SIGMOIDOSCOPY [facility] Start: 2005 Lipid panel LIPID SCREENING [facility] Start: 1984 Hepatitis B vaccination HEP B VACCINE (1 of 3 - 19+ 3-dose series) [facility] Start: 1984 Hepatitis B Vaccine (1 of 3 - 19+ 3-dose series) Hepatitis B Vaccine (1 of 3 - 19+ 3-dose series) [facility] Start: 1983 Anxiety Screening Anxiety Screening [facility] Start: 1983 Depression Screening Depression Scre ening [facility] Start: 1983 HIV SCREENING HIV SCREENING [facility] Start: 1983 HIV screening HIV Screening [facility] Start: 1980 HIV screening HIV SCREENING DISCUSSI ON [facility] Start: 1970 COVID-19 VACCINE (1) COVID-19 VACCIN E (1) [facility] Start: 03-23-1966 COVID-19 VACCINE (#1) COVID-19 VACCI NE (#1) [facility] Start: 1965 HEPATITIS B (1 of 3 - 3-dose series) HEPATITIS B (1 of 3 - 3-dose series) [facility] Start: 1965 Hepatitis C screening HEPATITI S C VIRUS SCREENING [facility] Patient Education ED Diverticulitis [place] [facility] Work Phone: Patient referral [place] [facility] Work Phone: End: 05-01-2025 XR Hand - left 3 Views [facility] em Comment on above: 1 Occurrences starti ng 05/01/2025 until 05/01/2025 [facility] Immunizations Immunization Date Immunization Notes Care Provider Shashi vital 06-01-2018 influenza virus vaccine, unspecified formulation Marleny Santiago APRN.[employer] Work Phone: [facility] 06-22-2015 influenza, injectabl e, quadrivalent, contains preservative [employer] Work Phone: [facility] 06-22-2015 influenza virus vaccine, unspecified formulation Zane Gonzalez MD Work Phone: [facility] 05-17-2014 influenza, seasonal, injectable [employer] Work Phone: [facility] 06-03-2013 influenza virus vaccine, live, attenuated, for intranasal use [employer] Work Phone: [facility] Work Phone: 05-28-2012 influenza virus vaccine, live, attenuated, for intranasal use [employer] Work Phone: [facility] 05-30-2011 influenza virus vaccine, live, attenuated, for intranasal use [employer] Work Phone: [facility] 09-05-2010 tetanus toxoid, redu danette diphtheria toxoid, and acellular pertussis vaccine, adsorbed [employer] Work Phone: [facility] Work Phone: 05-24-2010 influenza virus vaccine, live, attenuated, for intranasal use [employer] Work Phone: [facility] 05-11-2009 influenza virus vaccine, live, attenuated, for intranasal use [employer] Work Phone: [facility] 06-14-2008 influenza virus vaccine, unspecified formulation [employer] Work Phone: [facility] Work Phone: 06-18-2007 influenza virus vaccine, unspecified formulation [employer] Work Phone: [facility] Work Phone: 06-09-2006 influenza virus vaccine, unspecified formulation [employer] Work Phone: [facility] Work Phone: Payers Date Payer Category Payer Department of Vetera ns [facility] [employer] [id number] 2024 Unknown [id number] 04 2024 Managed Care (unspecified) [facility] P[facility] POS [id number] 2024 Self-pay [id number] 2022 Private Health Insurance [facility] [employer] [id number] 2022-Present [phone] [address] [place] [address] PPO [id number] 2022 Unknown [id number] 2021 Unknown ANTHEM BLUE ACCE SS PPO [id number] 2021-Present [phone] [id number] [place] [address] PPO [id number] 2021 Unknown [id number] 2015 Unknown ANTHEM ANTHEM BC BS FEP PPO [id number] 2015-Present [phone] [id number] [place] [address] PPO [id number] 2015 Unknown [id number] 2012 Unknown [id number] 1965 Unknown [id number] 1965 Unknown [id number] 1965 Unknown [id number] Unknown [id number] Unknown [id number] Unknown [id number] Unknown [id number] Unknown [id number] Social History Date Type Detail Facility Start: 04-03-2013 End: 05-01-2025 Tobacco smoking status NHIS Never smoked tobacco [facility] Start: 10-03-2021 End: 10-28-2021 Alcohol intake Current drinker of alcohol (finding) [facility] Start: 02-23-2013 History SDOH Alcohol Comment rarely, once monthly [facility] Start: 1965 Sex Assigned At Not on file [facility] Start: 09-03-2021 End: 10-28-2021 Exposure to SARS-CoV-2 (event) Not sure [facility] Start: 1965 Sex Assigned At Male [facility] Start: 09-04-2022 Tobacco smoking stat us IDIS Unknown if ever smoked [facility] Start: 04-03-2013 End: 05-01-2025 Tobacco use and exposure Smokeless tobacco non-user [facility] Start: 10-19-2023 End: 05-01-2025 History of Social function [facility] Start: 10-19-2023 End: 05-01-2025 Tobacco use panel [facility] National Score (1-100), lower number is lower risk 57 [facility] Start: 03-28-2025 Sex Male (finding) [facility] Clinical Notes 10-03-2021 to 05-01-[address] - 05/01/2025 3:00 PM EDTBmaddie Monk - 05/01/2025 3:00 PM Demetrio Gonzalez MD - 05/01/2025 3:00 PM Marleny Valdez APRN.LISA - 10/19/2023 5:04 PM EDTPatient Instructions Note Date & Type Note Facility 05-01-2025 History of Present illness Narrative Review of Systems Constitutional: Negative for chills, fatigue and fever. Eyes: Negative for visual disturbance. Respiratory: Negative for shortness of breath. Cardiovascular: Negative for chest pain. Gastrointestinal: Negative for abdominal pain and blood in stool. Endocrine: Negative for polydipsia. Genitourinary: Negative for hematuria. Musculoskeletal: Positive for myalgias. Negative for arthralgias. Neurological: Positive for weakness and numbness. Negative for seizures. Hematological: Does not bruise/bleed easily. Psychiatric/Behavioral: Negative for dysphoric mood. Associated Order(s): UPPER EXTREMITY INJECTION: L carpal tunnel Post-Procedure Diagnose(s): Carpal tunnel syndrome, left UPPER EXTREMITY INJECTION: L carpal tunnel Date/Time: 05/01/2025 3:00 PM Performed by: Zane Gonzalez MD Authorized by: Zane Gonzalez MD Supporting Documentation Indications: therapeutic Procedure Details: Procedure: carpal tunnel injection Site: L carpal tunnel Needle size: 25 G Approach: anterior Medication Verification: I have personally verified and performed the final check of the medication(s) used in this procedure prior to administration. The following items were included during the verification process for medication(s) administered: drug name, strength, volume, expiration, physical integrity and appearance of the medication(s). Medications administered: 40 mg methylPREDNISolone acetate 40 MG/ML; 1 mL Lidocaine 10 mg/mL; 40 mg triamcinolone 40 MG/ML Patient tolerance: patient tolerated the procedure well with no immediate complications Comments The risk and benefit of the injection have been discussed with the patient prior to injection and they did wish to proceed. The procedure was performed aseptically in the office and was tolerated by the patient. Consent: Consent was obtained prior to the procedure after discussion of the risks, benefits and alternatives, and expected outcomes were discussed with the patient. The possibilities of reaction to medication, bleeding, infection, the need for additional procedures, failure to diagnosis a condition, and creating a complication requiring operation were discussed with the patient. The patient concurred with the proposed plan, giving consent. Preparation: Patient was prepped in the usual sterile fashion. 05/01/25 Chief Complaint Patient presents with Left Hand - Pain Right Hand - Pain HPI: Prince is here today with bilateral hand pain, worse on the left than the right, as well as numbness and tingling in both his hands. He also has multiple other aches and pains to include his back and his neck. He has been seeing pain management. Past Medical History[1] Past Surgical History[2] Current Medications[3] Allergies[4] Social History Socioeconomic History Marital status: Spouse name: Not on file Number of children: Not on file Years of education: Not on file Highest education level: Not on file Occupational History Not on file Tobacco Use Smoking status: Never Smokeless tobacco: Never Substance and Sexual Activity Alcohol use: Not on file Drug use: Not on file Sexual activity: Not on file Other Topics Concern Not on file Social History Narrative Not on file Social Drivers of Health Financial Resource Strain: Not on file Food Insecurity: Not on file Transportation Needs: Not on file Physical Activity: Not on file Stress: Not on file Social Connections: Not on file Personal Safety: Not on file Housing Stability: Not on file Family History Problem Relation Age of Onset Cancer Mother Other - Specify (heart attack) Father Review of Systems Constitutional: Negative for chills, fatigue and fever. Eyes: Negative for visual disturbance. Respiratory: Negative for shortness of breath. Cardiovascular: Negative for chest pain. Gastrointestinal: Negative for abdominal pain and blood in stool. Endocrine: Negative for polydipsia. Genitourinary: Negative for hematuria. Musculoskeletal: Positive for myalgias. Negative for arthralgias. Neurological: Positive for weakness and numbness. Negative for seizures. Hematological: Does not bruise/bleed easily. Psychiatric/Behavioral: Negative for dysphoric mood. UPPER EXTREMITY INJECTION: L carpal tunnel Date/Time: 05/01/2025 3:00 PM Performed by: Zane Gonzalez MD Authorized by: Zane Gonzalez MD Supporting Documentation Indications: therapeutic Procedure Details: Procedure: carpal tunnel injection Site: L carpal tunnel Needle size: 25 G Approach: anterior Medication Verification: I have personally verified and performed the final check of the medication(s) used in this procedure prior to administration. The following items were included during the verification process for medication(s) administered: drug name, strength, volume, expiration, physical integrity and appearance of the medication(s). Medications administered: 40 mg methylPREDNISolone acetate 40 MG/ML; 1 mL Lidocaine 10 mg/mL; 40 mg triamcinolone 40 MG/ML Patient tolerance: patient tolerated the procedure well with no immediate complications Comments The risk and benefit of the injection have been discussed with the patient prior to injection and they did wish to proceed. The procedure was performed aseptically in the office and was tolerated by the patient. Consent: Consent was obtained prior to the procedure after discussion of the risks, benefits and alternatives, and expected outcomes were discussed with the patient. The possibilities of reaction to medication, bleeding, infection, the need for additional procedures, failure to diagnosis a condition, and creating a complication requiring operation were discussed with the patient. The patient concurred with the proposed plan, giving consent. Preparation: Patient was prepped in the usual sterile fashion. Physical Examination: Vitals: 05/01/25 1506 Temp: 97.8 degrees F (36.6 degrees C) TempSrc: Temporal Weight: 92.6 kg (204 lb 2.3 oz) Height: 1.727 m (5' 8) Extremity: Examination today demonstrates positive Tinel's and Phalen's bilaterally. Normal sensation. Brisk capillary refill. He has point tenderness at the base of the thumb and a positive grind maneuver on the left side. Diagnostic Studies: AP, oblique and lateral projections of the left hand demonstrates he has basal joint arthritis. Nerve studies confirm carpal and cubital tunnel. Assessment: 1. Left carpal and cubital tunnel. 2. Left basal joint arthritis. Plan: I am going to start him on Celebrex. I have injected the left carpal tunnel today. We will see him back in 3 months and make further decisions based on how the shot has helped him. [1] No past medical history on file. [2] Past Surgical History: Procedure Laterality Date HERNIA REPAIR RELEASE CARPAL TUNNEL Bilateral [id number] [3] Current Outpatient Medications: Timolol maleate 0.25 % Solution, instill 1 drop into each eye twice daily, Disp: , Rfl: Calcium Citrate-Vitamin D (Calcium Citrate + D) 250-5 MG-MCG tablet, , Disp: , Rfl: Celecoxib 200 MG capsule, Take 1 capsule by mouth daily. Take daily with food., Disp: 30 capsule, Rfl: 2 levETIRAcetam 500 MG tablet, , Disp: , Rfl: omeprazole [address] capsule, , Disp: , Rfl: Rosuvastatin 5 MG tablet, , Disp: , Rfl: [4] Allergies Allergen Reactions Amitriptyline Seizures Other Reaction(s): Mental Status Change siezure documented in this encounter [facility] 10-19-2023 Note HNO ID: [id number] Author: MARLENY SANTIAGO APRN.FOOD TASTER Service: ? Author Type: Nurse Practitioner Type: Progress Notes Filed: 10/19/2023 17:06 Note Text: Subjective Sinus Problem Associated symptoms include congestion, coughing and a sore throat. Pertinent negatives include no chills, fever, headaches or myalgias. Clifford Horn is a 58 year old male who presents with 7 days of cough, congestion, sore throat, sinus pressure, eyes red and drainage. He denies fever. Has been taking OTC medication and sudafed. No known sick contacts. Review of Systems Constitutional: Negative for chills and fever. HENT: Positive for congestion and sore throat. Negative for ear pain. Eyes: Positive for discharge and redness. Respiratory: Positive for cough. Musculoskeletal: Negative for myalgias. Neurological: Negative for dizziness and headaches. BP 150/90 Pulse 75 Temp 37.1 ?C (98.8 ?F) Resp 20 Wt 99.5 kg (219 lb 5.7 oz) SpO2 97% BMI 33.35 kg/m? PAST MEDICAL HISTORY Diagnosis Date Carpal tunnel syndrome DDD (degenerative disc disease), lumbar also neck Diverticulitis Dyskinesia of esophagus GERD (gastroesophageal reflux disease) Globus sensation Hiatal hernia IBS (irritable bowel syndrome) Low back pain Lumbar spondylosis Mixed hyperlipidemia NAFLD (nonalcoholic fatty liver disease) Neck pain Numbness of fingers of both hands Osteoarthritis of multiple joints bilateral hip joints Seizure disorder (HCC) 08/09/1989 related to elavil PAST SURGICAL HISTORY Procedure Laterality Date COLONOSCOPY 11/23/2017 repeat in 10 years COLONOSCOPY 01/07/2023 EGD 11/23/2017 EGD 01/07/2023 EGD TRANSORAL BIOPSY SINGLE/MULTIPLE 10/06/2010 ESOPHAGOGASTRODUODENOSCOPY TRANSORAL DIAGNOSTIC 01/05/2014 EGD NEUROPLASTY AND/TRANSPOS MEDIAN NRV CARPAL TUNNE 03/22/2013 Carpal tunnel decomp - right PAST SURGICAL HISTORY OF hernia surgery, Lt inguinal ALLERGIES Elavil [Amitriptyline Hcl] MEDICATIONS omeprazole (PRILOSEC) 20 mg capsule Take 40 mg by mouth once daily. divalproex ER (DEPAKOTE ER) 500 mg 24 hr tablet Take 1,000 mg by mouth daily at bedtime. loperamide (IMODIUM A-D) 1 mg/7.5 mL oral liquid TAKE 7.5ML BY MOUTH FOUR TIMES A DAY NEEDED FOR DIARRHEA ywnoznk-asclcgrxx-emvoyiw D3 500 mg-5 mcg (200 unit) per tablet Take 1 tablet by mouth once daily. amoxicillin-clavulanate potassium (AUGMENTIN) 875-125 mg per tablet Take 1 tablet by mouth two times a day for 7 days. simvastatin (ZOCOR) 20 mg tablet Take 20 mg by mouth daily at bedtime. (Patient not taking: Reported on 10/19/2023) FAMILY HISTORY Problem Relation Age of Onset Emphysema Mother Heart Father [place] age 69 Colon Cancer Maternal Grandfather 90 Social History Tobacco Use Smoking status: Never Smokeless tobacco: Never Vaping Use Vaping Use: Never used Substance Use Topics Alcohol use: Yes Comment: rarely, once monthly Drug use: No Objective Physical Exam Vitals and nursing note reviewed. Constitutional: General: He is not in acute distress. Appearance: Normal appearance. He is not ill-appearing. HENT: Right Ear: Tympanic membrane, ear canal and external ear normal. Left Ear: Tympanic membrane, ear canal and external ear normal. Nose: Mucosal edema, congestion and rhinorrhea present. Mouth/Throat: Mouth: Mucous membranes are moist. Pharynx: Oropharynx is clear. Uvula midline. No oropharyngeal exudate or posterior oropharyngeal erythema. Cardiovascular: Rate and Rhythm: Normal rate and regular rhythm. Heart sounds: Normal heart sounds. Pulmonary: Effort: Pulmonary effort is normal. No respiratory distress. Breath sounds: Normal breath sounds. No wheezing or rales. Musculoskeletal: Cervical back: Neck supple. Lymphadenopathy: Cervical: No cervical adenopathy. Skin: General: Skin is warm and dry. Findings: No erythema or rash. Neurological: Mental Status: He is alert. ASSESSMENT/PLAN: 1. Bacterial sinusitis - ICD9: 473.9, 041.9, ICD10: J32.9, B96.89 - Will begin treatment with as per antibiotic as written, see orders - The patient should also be given flonase nasal spray for the first 5-7 days of treatment. - Supportive care with plenty of fluids, rest, and analgesia prn. - AMOXICILLIN 875 MG-POTASSIUM CLAVULANATE 125 MG TABLET - Follow-up with your PCP in 3-5 days if symptoms have not improved or sooner if symptoms worsen - Discussed red flags and need for immediate medical evaluation if any occur. - Discussed supportive care treatment with fluids, rest and analgesia. - Discussed expected course of illness Marleny Santiago APRN.[facility] 10-19-2023 History of Present illness Narrative Subjective Sinus Problem Associated symptoms include congestion, coughing and a sore throat. Pertinent negatives include no chills, fever, headaches or myalgias. Clifford Horn is a 58 year old male who presents with 7 days of cough, congestion, sore throat, sinus pressure, eyes red and drainage. He denies fever. Has been taking OTC medication and sudafed. No known sick contacts. Review of Systems Constitutional: Negative for chills and fever. HENT: Positive for congestion and sore throat. Negative for ear pain. Eyes: Positive for discharge and redness. Respiratory: Positive for cough. Musculoskeletal: Negative for myalgias. Neurological: Negative for dizziness and headaches. BP 150/90 Pulse 75 Temp 37.1 C (98.8 F) Resp 20 Wt 99.5 kg (219 lb 5.7 oz) SpO2 97% BMI 33.35 kg/m PAST MEDICAL HISTORY Diagnosis Date Carpal tunnel syndrome DDD (degenerative disc disease), lumbar also neck Diverticulitis Dyskinesia of esophagus GERD (gastroesophageal reflux disease) Globus sensation Hiatal hernia IBS (irritable bowel syndrome) Low back pain Lumbar spondylosis Mixed hyperlipidemia NAFLD (nonalcoholic fatty liver disease) Neck pain Numbness of fingers of both hands Osteoarthritis of multiple joints bilateral hip joints Seizure disorder (HCC) 08/09/1989 related to elavil PAST SURGICAL HISTORY Procedure Laterality Date COLONOSCOPY 11/23/2017 repeat in 10 years COLONOSCOPY 01/07/2023 EGD 11/23/2017 EGD 01/07/2023 EGD TRANSORAL BIOPSY SINGLE/MULTIPLE 10/06/2010 ESOPHAGOGASTRODUODENOSCOPY TRANSORAL DIAGNOSTIC 01/05/2014 EGD NEUROPLASTY &/TRANSPOS MEDIAN NRV CARPAL TUNNE 03/22/2013 Carpal tunnel decomp - right PAST SURGICAL HISTORY OF hernia surgery, Lt inguinal ALLERGIES Elavil [Amitriptyline Hcl] MEDICATIONS omeprazole (PRILOSEC) 20 mg capsule Take 40 mg by mouth once daily. divalproex ER (DEPAKOTE ER) 500 mg 24 hr tablet Take 1,000 mg by mouth daily at bedtime. loperamide (IMODIUM A-D) 1 mg/7.5 mL oral liquid TAKE 7.5ML BY MOUTH FOUR TIMES A DAY NEEDED FOR DIARRHEA buippow-fbghtioko-jshkoav D3 500 mg-5 mcg (200 unit) per tablet Take 1 tablet by mouth once daily. amoxicillin-clavulanate potassium (AUGMENTIN) 875-125 mg per tablet Take 1 tablet by mouth two times a day for 7 days. simvastatin (ZOCOR) 20 mg tablet Take 20 mg by mouth daily at bedtime. (Patient not taking: Reported on 10/19/2023) FAMILY HISTORY Problem Relation Age of Onset Emphysema Mother Heart Father [place] age 69 Colon Cancer Maternal Grandfather 90 Social History Tobacco Use Smoking status: Never Smokeless tobacco: Never Vaping Use Vaping Use: Never used Substance Use Topics Alcohol use: Yes Comment: rarely, once monthly Drug use: No Objective Physical Exam Vitals and nursing note reviewed. Constitutional: General: He is not in acute distress. Appearance: Normal appearance. He is not ill-appearing. HENT: Right Ear: Tympanic membrane, ear canal and external ear normal. Left Ear: Tympanic membrane, ear canal and external ear normal. Nose: Mucosal edema, congestion and rhinorrhea present. Mouth/Throat: Mouth: Mucous membranes are moist. Pharynx: Oropharynx is clear. Uvula midline. No oropharyngeal exudate or posterior oropharyngeal erythema. Cardiovascular: Rate and Rhythm: Normal rate and regular rhythm. Heart sounds: Normal heart sounds. Pulmonary: Effort: Pulmonary effort is normal. No respiratory distress. Breath sounds: Normal breath sounds. No wheezing or rales. Musculoskeletal: Cervical back: Neck supple. Lymphadenopathy: Cervical: No cervical adenopathy. Skin: General: Skin is warm and dry. Findings: No erythema or rash. Neurological: Mental Status: He is alert. ASSESSMENT/PLAN: 1. Bacterial sinusitis - ICD9: 473.9, 041.9, ICD10: J32.9, B96.89 - Will begin treatment with as per antibiotic as written, see orders - The patient should also be given flonase nasal spray for the first 5-7 days of treatment. - Supportive care with plenty of fluids, rest, and analgesia prn. - AMOXICILLIN 875 MG-POTASSIUM CLAVULANATE 125 MG TABLET - Follow-up with your PCP in 3-5 days if symptoms have not improved or sooner if symptoms worsen - Discussed red flags and need for immediate medical evaluation if any occur. - Discussed supportive care treatment with fluids, rest and analgesia. - Discussed expected course of illness Marleny Santiago APRN.CNP documented in this encounter [facility] 10-19-2023 Instructions Marleny Santiago APRN.CNP - 10/19/2023 5:04 PM EDT Images from the original note were not included. ASSESSMENT/PLAN: 1. Bacterial sinusitis - ICD9: 473.9, 041.9, ICD10: J32.9, B96.89 - Will begin treatment with as per antibiotic as written, see orders - The patient should also be given flonase nasal spray for the first 5-7 days of treatment. - Supportive care with plenty of fluids, rest, and analgesia prn. - AMOXICILLIN 875 MG-POTASSIUM CLAVULANATE 125 MG TABLET - Follow-up with your PCP in 3-5 days if symptoms have not improved or sooner if symptoms worsen - Discussed red flags and need for immediate medical evaluation if any occur. - Discussed supportive care treatment with fluids, rest and analgesia. - Discussed expected course of illness Marleny Santiago APRN.CNP Adult Sinusitis Patient Education What is Sinusitis? Sinusitis [rbdl-ixd-rsip-tis] is inflammation of the sinuses or swelling of the lining of the sinus cavity or nose. During an infection the sinuses become blocked with fluid causing swelling of the lining of the sinuses. Symptoms: (viral and bacterial infections) Stuffy nose Runny nose Postnasal drip Fever Toothache Headache Tiredness Cough Sore throat Face and head pressure and or pain Common causes: 98% of sinus infections are viral caused by viruses. Risk Factors of Sinusitis Include: Allergies, air pollution, indoor humidity and outdoor temperature changes, andstructural changes in the nose may contribute to sinus pain, pressure and congestion. When to get help? Temperature greater than 100.4 F Symptoms lasting more than 10 days or worsening symptoms greater than 7-10 days. If you do not improve or worsen after a course of antibiotics, you should be re-examined. Diagnosis and Treatment: Your healthcare provider will ask a number of questions about your symptoms and how long they have occurred. If symptoms of sinusitis persist greater than 10 days, it is possible you have a bacterial sinus infection and an antibiotic is prescribed. If it is viral, antibiotics will not help. You may be instructed to take azyf-xzb-jovnvqy medications for symptoms. including fever reducers acetaminophen or ibuprofen, nasal saline spray, cough and cold preparations and decongestants as prescribed by the physician, nurse practitioner or physician railways assistant. Self-Care and Prevention: Rest Fluids for hydration Good hand washing Humidifier Avoid smoking and exposure to second hand smoke Avoid sick contacts documented in this encounter [facility] 01-15-2023 Note HNO ID: [id number] Author: Loren Springer PA-C Service: ? Author Type: Physician Loom Winder Tender Type: Progress Notes Filed: 01/24/2023 10:34 PM Note Text: In lieu of an in-person visit due to COVID-19 concerns, a virtual visit was performed on the patient. Patient is aware that I am not fully able to assess symptoms and do a full physical examination including vital signs assessment at this time. Patient consents to this encounter. FOLLOW UP VISIT - ENDOSCOPY NAME: Clifford [facility] NO.: [id number] DATE OF SERVICE: 01/15/2023 : 1965 REFERRING PHYSICIAN: Ashu Boudreaux MD Clifford is a patient I am following for follow-up of a diverticulitis episode, as well as complaints of GERD and frequent throat clearing for which EGD was recommended. Dr. Murphy performed upper and lower endoscopy on 01/07/23. The patient was found to have a small hiatal hernia and erythematous mucosa of antrum. Colonoscopy showed sigmoid diverticulosis as well as a small sigmoid colon polyp which was removed. Pathology demonstrated: FINAL DIAGNOSIS A. Stomach, antrum, biopsy: - Gastric antral mucosa with mild chronic inactive gastritis. - No evidence of Helicobacter pylori organisms on SALO stain. B. Esophagogastric junction, biopsy: - Gastric glandular mucosa with acute and chronic inflammation. - Negative for intestinal metaplasia and dysplasia. C. Esophagus, mid, biopsy: - Squamous mucosa with no significant histopathologic findings. - No evidence of increased intraepithelial eosinophils. D. Colon, sigmoid polyp, biopsy: - Colonic mucosa with mild hyperplastic change. The patient notes no complaints since the procedure. Assessment IMPRESSION: sigmoid diverticulosis, benign hyperplastic colon polyp, small hiatal hernia, GERD, gastritis PLAN: The operative findings and pathology report were reviewed with the patient, and the patient has had the opportunity to ask questions and have questions answered. If the patient notes any problems or changes in bowel function, the patient should contact me immediately. Otherwise I recommend follow up endoscopy in 10 years. HM updated Patient verbalized understanding of all above and agreed with the plan Diagnoses: (K57.90) Diverticulosis (primary encounter diagnosis) (K44.9) Hiatal hernia (K21.9) Gastroesophageal reflux disease, unspecified whether esophagitis present (K29.30) Chronic superficial gastritis without bleeding I spent a total of 22 minutes on the date of the service which included preparing to see the patient, grpe-dc-ceib patient care, completing clinical documentation, obtaining and/or reviewing separately obtained history, counseling and educating the patient/family/caregiver, independently interpreting results (not separately reported), and communicating results to the patient/family/caregiver. Loren Springer PA-C [facility] 12-23-2022 Note HNO ID: [id number] Author: Loren Springer PA-C Service: ? Author Type: Physician Loom Winder Tender Type: Progress Notes Filed: 12/29/2022 12:54 PM Note Text: HISTORY AND PHYSICAL Clifford Baldwin Justina 1965 REFERRING PHYSICIAN: [place] CHIEF COMPLAINT: Consult (Colonoscopy consult) HPI: The patient is a 57 year old male referred for endoscopy. Clifford notes an episode of diverticulitis for which he was treated in August 2022-seen at [facility] initially and [facility]. Notes symptoms resolved completely with oral Augmentin. Patient denies any change in bowel habits, weight changes, blood in stools, black tarry stools or abdominal pain. Denies family history of colon issues. The patient NOTES upper GI complaints including frequent throat clearing and acid reflux. Denies having previous EGD. Clifford has undergone prior endoscopy. Last colonoscopy 11/23/17. No polyps. BBPS 5. Patient denies problems with sedation in the past. PAST MEDICAL HISTORY Diagnosis Date Carpal tunnel syndrome DDD (degenerative disc disease), lumbar also neck Diverticulitis Dyskinesia of esophagus GERD (gastroesophageal reflux disease) Globus sensation Hiatal hernia IBS (irritable bowel syndrome) Low back pain Lumbar spondylosis Mixed hyperlipidemia NAFLD (nonalcoholic fatty liver disease) Neck pain Numbness of fingers of both hands Osteoarthritis of multiple joints bilateral hip joints Seizure disorder (HCC) 08/09/1989 related to elavil PAST SURGICAL HISTORY Procedure Laterality Date COLONOSCOPY 11/23/2017 repeat in 10 years EGD 11/23/2017 EGD TRANSORAL BIOPSY SINGLE/MULTIPLE 10/06/2010 ESOPHAGOGASTRODUODENOSCOPY TRANSORAL DIAGNOSTIC 01/05/2014 EGD NEUROPLASTY AND/TRANSPOS MEDIAN NRV CARPAL TUNNE 03/22/2013 Carpal tunnel decomp - right PAST SURGICAL HISTORY OF hernia surgery, Lt inguinal Current Outpatient Medications Medication Sig omeprazole (PRILOSEC) 20 mg capsule Take 40 mg by mouth once daily. simvastatin (ZOCOR) 20 mg tablet Take 20 mg by mouth daily at bedtime. divalproex ER (DEPAKOTE ER) 500 mg 24 hr tablet Take 1,000 mg by mouth daily at bedtime. loperamide (IMODIUM A-D) 1 mg/7.5 mL oral liquid TAKE 7.5ML BY MOUTH FOUR TIMES A DAY NEEDED FOR DIARRHEA [id number]-jqmfpiq D3 500 mg-5 mcg (200 unit) per tablet Take 1 tablet by mouth once daily. No current facility-administered medications for this visit. ALLERGIES: Elavil [Amitriptyline Hcl] PERSONAL HISTORY: Social History Tobacco Use Smoking status: Never Smokeless tobacco: Never Vaping Use Vaping Use: Never used Substance Use Topics Alcohol use: Yes Comment: rarely, once monthly Drug use: No FAMILY HISTORY: FAMILY HISTORY Problem Relation Age of Onset Emphysema Mother Heart Father [place] age 69 Colon Cancer Maternal Grandfather 90 REVIEW OF SYMPTOMS: The review of systems data was entered by the nurse and reviewed by ut Nursing Notes: Ina Hernandez RN 12/23/2022 10:15 AM Signed REVIEW OF SYSTEMS: General: The patient denies fatigue, denies weight loss, denies weight gain, denies feeling hot, and denies feelings of cold. Eyes: The patient denies glaucoma, denies eye injury/surgery, wears glasses or contacts. Ear/Nose/Throat: The patient NOTES allergies, denies hayfever, denies ear infections, and denies bloody noses. Cardiovascular: The patient denies chest pain, denies heart disease, denies high blood pressure,denies cardiac stent, denies prior heart attack, denies irregular heart beat, NOTES high cholesterol, denies poor circulation, denies heart failure, other cardiac issues, denies claudication, denies cold feet, denies peripheral arterial stent. Respiratory: The patient denies tuberculosis, denies pneumonia, denies frequent cough, denies pulmonary embolism, denies shortness of breath, and denies coughing up blood. Gastrointestinal: The patient denies difficulty swallowing, NOTES acid reflux, denies ulcers, denies vomiting, denies jaundice/hepatitis, denies gallbladder problems, denies black or tarry stools, denies hemorrhoids, denies bleeding from rectum, NOTES diverticulitis, denies constipation, denies diarrhea, denies loss of stool control, and NOTES hernias. Kidney/Bladder: The patient denies kidney stones, denies urine infections, and denies bloody urine. Skin: The patient denies a history of skin cancer, denies bleeding/changing moles, and denies a history of skin rash. Neurologic: The patient NOTES a history of epilepsy/convulsions, denies headaches, denies head/spinal injuries, and denies stroke/TIA. Psychiatric: The patient denies psychiatric medications, denies depression, and denies voices, denies substance abuse. Endocrine: The patient denies thyroid disorders, denies diabetes, and denies hormonal problems. Hematologic: The patient denies a history of bruising, denies bleeding, a (more content not included)... [facility] 12-23-2022 Nurse Note REVIEW OF SYSTEMS: General: The patient denies fatigue, denies weight loss, denies weight gain, denies feeling hot, and denies feelings of cold. Eyes: The patient denies glaucoma, denies eye injury/surgery, wears glasses or contacts. Ear/Nose/Throat: The patient NOTES allergies, denies hayfever, denies ear infections, and denies bloody noses. Cardiovascular: The patient denies chest pain, denies heart disease, denies high blood pressure,denies cardiac stent, denies prior heart attack, denies irregular heart beat, NOTES high cholesterol, denies poor circulation, denies heart failure, other cardiac issues, denies claudication, denies cold feet, denies peripheral arterial stent. Respiratory: The patient denies tuberculosis, denies pneumonia, denies frequent cough, denies pulmonary embolism, denies shortness of breath, and denies coughing up blood. Gastrointestinal: The patient denies difficulty swallowing, NOTES acid reflux, denies ulcers, denies vomiting, denies jaundice/hepatitis, denies gallbladder problems, denies black or tarry stools, denies hemorrhoids, denies bleeding from rectum, NOTES diverticulitis, denies constipation, denies diarrhea, denies loss of stool control, and NOTES hernias. Kidney/Bladder: The patient denies kidney stones, denies urine infections, and denies bloody urine. Skin: The patient denies a history of skin cancer, denies bleeding/changing moles, and denies a history of skin rash. Neurologic: The patient NOTES a history of epilepsy/convulsions, denies headaches, denies head/spinal injuries, and denies stroke/TIA. Psychiatric: The patient denies psychiatric medications, denies depression, and denies voices, denies substance abuse. Endocrine: The patient denies thyroid disorders, denies diabetes, and denies hormonal problems. Hematologic: The patient denies a history of bruising, denies bleeding, and denies anemia, denies blood clots. Infections: The patient denies a history of measles and mumps, denies rheumatic fever, and denies sexually transmitted diseases. Musculoskeletal: The patient NOTES back pain/injury, NOTES back problems, denies sciatica, denies knee/foot trouble, denies arthritis, or denies gout. When was patient's last Mammogram screening? N/A Last Colonoscopy: 11/23/2017 Ina Hernandez RN documented in this encounter [facility] 12-23-2022 History of Present illness Narrative HISTORY AND PHYSICAL Clifford Horn 1965 REFERRING PHYSICIAN: [place] CHIEF COMPLAINT: Consult (Colonoscopy consult) HPI: The patient is a 57 year old male referred for endoscopy. Clifford notes an episode of diverticulitis for which he was treated in August 2022-seen at [facility] initially and [facility]. Notes symptoms resolved completely with oral Augmentin. Patient denies any change in bowel habits, weight changes, blood in stools, black tarry stools or abdominal pain. Denies family history of colon issues. The patient NOTES upper GI complaints including frequent throat clearing and acid reflux. Denies having previous EGD. Clifford has undergone prior endoscopy. Last colonoscopy 11/23/17. No polyps. BBPS 5. Patient denies problems with sedation in the past. PAST MEDICAL HISTORY Diagnosis Date Carpal tunnel syndrome DDD (degenerative disc disease), lumbar also neck Diverticulitis Dyskinesia of esophagus GERD (gastroesophageal reflux disease) Globus sensation Hiatal hernia IBS (irritable bowel syndrome) Low back pain Lumbar spondylosis Mixed hyperlipidemia NAFLD (nonalcoholic fatty liver disease) Neck pain Numbness of fingers of both hands Osteoarthritis of multiple joints bilateral hip joints Seizure disorder (HCC) 08/09/1989 related to elavil PAST SURGICAL HISTORY Procedure Laterality Date COLONOSCOPY 11/23/2017 repeat in 10 years EGD 11/23/2017 EGD TRANSORAL BIOPSY SINGLE/MULTIPLE 10/06/2010 ESOPHAGOGASTRODUODENOSCOPY TRANSORAL DIAGNOSTIC 01/05/2014 EGD NEUROPLASTY &/TRANSPOS MEDIAN NRV CARPAL TUNNE 03/22/2013 Carpal tunnel decomp - right PAST SURGICAL HISTORY OF hernia surgery, Lt inguinal Current Outpatient Medications Medication Sig omeprazole (PRILOSEC) 20 mg capsule Take 40 mg by mouth once daily. simvastatin (ZOCOR) 20 mg tablet Take 20 mg by mouth daily at bedtime. divalproex ER (DEPAKOTE ER) 500 mg 24 hr tablet Take 1,000 mg by mouth daily at bedtime. loperamide (IMODIUM A-D) 1 mg/7.5 mL oral liquid TAKE 7.5ML BY MOUTH FOUR TIMES A DAY NEEDED FOR DIARRHEA [id number]-[id number]-gcjogvg D3 500 mg-5 mcg (200 unit) per tablet Take 1 tablet by mouth once daily. No current facility-administered medications for this visit. ALLERGIES: Elavil [Amitriptyline Hcl] PERSONAL HISTORY: Social History Tobacco Use Smoking status: Never Smokeless tobacco: Never Vaping Use Vaping Use: Never used Substance Use Topics Alcohol use: Yes Comment: rarely, once monthly Drug use: No FAMILY HISTORY: FAMILY HISTORY Problem Relation Age of Onset Emphysema Mother Heart Father [place] age 69 Colon Cancer Maternal Grandfather 90 REVIEW OF SYMPTOMS: The review of systems data was entered by the nurse and reviewed by ut Nursing Notes: Ina Hernandez RN 12/23/2022 10:15 AM Signed REVIEW OF SYSTEMS: General: The patient denies fatigue, denies weight loss, denies weight gain, denies feeling hot, and denies feelings of cold. Eyes: The patient denies glaucoma, denies eye injury/surgery, wears glasses or contacts. Ear/Nose/Throat: The patient NOTES allergies, denies hayfever, denies ear infections, and denies bloody noses. Cardiovascular: The patient denies chest pain, denies heart disease, denies high blood pressure,denies cardiac stent, denies prior heart attack, denies irregular heart beat, NOTES high cholesterol, denies poor circulation, denies heart failure, other cardiac issues, denies claudication, denies cold feet, denies peripheral arterial stent. Respiratory: The patient denies tuberculosis, denies pneumonia, denies frequent cough, denies pulmonary embolism, denies shortness of breath, and denies coughing up blood. Gastrointestinal: The patient denies difficulty swallowing, NOTES acid reflux, denies ulcers, denies vomiting, denies jaundice/hepatitis, denies gallbladder problems, denies black or tarry stools, denies hemorrhoids, denies bleeding from rectum, NOTES diverticulitis, denies constipation, denies diarrhea, denies loss of stool control, and NOTES hernias. Kidney/Bladder: The patient denies kidney stones, denies urine infections, and denies bloody urine. Skin: The patient denies a history of skin cancer, denies bleeding/changing moles, and denies a history of skin rash. Neurologic: The patient NOTES a history of epilepsy/convulsions, denies headaches, denies head/spinal injuries, and denies stroke/TIA. Psychiatric: The patient denies psychiatric medications, denies depression, and denies voices, denies substance abuse. Endocrine: The patient denies thyroid disorders, denies diabetes, and denies hormonal problems. Hematologic: The patient denies a history of bruising, denies bleeding, and denies anemia, denies blood clots. Infections: The patient denies a history of measles and mumps, denies rheumatic fever, and denies sexually transmitted diseases. Musculoskeletal: The patient NOTES back pain/injury, NOTES back problems, denies sciatica, denies knee/foot trouble, denies arthritis, or denies gout. When was patient's last Mammogram screening? N/A Last Colonoscopy: 11/23/2017 Ina Hernandez RN I have confirmed and edited as necessary, the PFSH and ROS obtained by others. Loren Springer PA-C PHYSICAL EXAMINATION: General: The patient is 57 year old male, well nourished, well hydrated in no acute distress. The patient is oriented to time, place, and person. VITALS: Blood pressure 142/80, pulse 66, temperature 36.5 C (97.7 F), height 172.7 cm (5' 8), weight 95.5 kg (210 lb 9.6 oz), SpO2 98 %. Body mass index is 32.02 kg/m . HEENT: Normal cephalic, ataumatic, pupils are equally round, sclera are anicteric, mucous membranes are moist, oropharynx is clear. Neck has no masses, asymmetry or lymphadenopathy. Respiratory: Clear to auscultation and percussion. Normal respiratory excursion and pattern. Cardiac: Examination is regular rate and rhythm. Normal S1/S2 Abdominal exam: Soft, nontender, with no palpable masses. No hepatosplenomegaly. No palpable hernias. Extremities: no clubbing, cyanosis or edema. No adenopathy. LABORATORY VALUES: As Noted RADIOLOGIC STUDIES: As Noted Assessment IMPRESSION: history of diverticulitis, need for follow-up colonoscopy. GERD, frequent throat clearing-recommend EGD in addition to colonoscopy PLAN: I have reviewed my findings with the surgeon. Will plan for upper and lower endoscopy. We discussed the risks and benefits of the planned endoscopy. I have informed the patient that complications can occur including failure to complete the endoscopy and perforation. The patient had the opportunity to ask questions concerning the planned endoscopy. My staff has also explained the procedure to the patient in understandable terms and has given the patient printed material concerning the procedure. The patient freely consents to surgery. Patient has Moviprep bowel preparation from [place] I have explained to the patient the difference between IV conscious sedation and MAC anesthesia - and I have offered either, according to the patient's wishes. I have explained that with IV conscious sedation there is no anesthesia provider available and therefore there is a limitation of the amount of IV medications that can be given and that the patient may wake up in the middle of the procedure and/or experience pain/discomfort during the procedure. Further discussion was done and the patient was given the opportunity to ask questions and all questions were answered. The patient chooses IV conscious sedation Diagnoses: (K57.92) Diverticulitis (primary encounter diagnosis) (K21.9) Gastroesophageal reflux disease, unspecified whether esophagitis present (R09.89) Throat clearing Consultation requested by Dr. Paula Myles for an opinion regarding diverticulitis episode with need for follow-up colonoscopy. My final recommendations will be communicated back to the requesting physician by way of shared Medical record or letter to requesting physician via US mail. Loren Springer PA-C documented in this encounter [facility] 12-17-2022 Miscellaneous Notes Printed referral from Scanned docs and gave to Bobbi to contact Pt for an appointment.Essie Grant RN [place] called wondering if we received the orders for pt to have colonoscopy. Please verify the orders are correct in scanned documents. documented in this encounter [facility] 09-04-2022 Discharge summary Note Date/Time September 04, 2022 7:24pm [facility] Medical Records Department [address] [place] [address] Emergency Department Summary 09/04/22 MR#: [id number] Acct: [id number] Name: CLIFFORD OHRN Rep #:[id number] : 1965 56 From: Ralph Levy MD PCP: [place], [place] Status:REG ER Location: ED HPI HPI - GI History of Present Illness Chief Complaint: Abd Pain Informant: patient Narrative Narrative: Patient presents with lower abdominal pain that is been going on for about a week. He states he has irritable bowel and will sometimes get some diarrhea. He tried loperamide early on but it did not help. He felt bound up so he then took a stool softener. He had a large bowel movement but his pain has persisted. He has never seen blood. Sometimes his appetite has been a little bit off but he has no nausea vomiting or difficulty eating or drinking. No urinary symptoms. No back or flank pain other than a chronic problem with bloodback soreness. That is unchanged. He has had colonoscopies. He does not know if he has had diverticular disease. Only abdominal surgery was a right inguinalherniorrhaphy years ago. PFSH PFSH Home Medications amoxicillin 875 mg-potassium clavulanate 125 mg tablet 1 tab PO BID #20 tabs 09/04/22 [Rx Last Taken Unknown] ondansetron 4 mg disintegrating tablet 4 mg PO Q8H PRN PRN Nausea #10 tabs 09/04/22 [Rx Last Taken Unknown] Allergy/AdvReac Type Severity Reaction Status Date / Time amitriptyline [From Elavil] Allergy Other Verified 09/04/22 17:52 Social History Smoking Status: Never smoker ROS ROS ED Constitutional Constitutional ED: Denies chills or fever(s) ENT ENT ED: Denies rhinorrhea Cardiovascular Cardiovascular: Denies palpitations or racing heartbeat Respiratory/Chest Respiratory/Chest: Denies cough or dyspnea Gastrointestinal Gastrointestinal: Reports abdominal pain; Denies melena, nausea or vomiting Genitourinary Genitourinary ED: Denies dysuria or hematuria Musculoskeletal Musculoskeletal: Reports back pain; Denies neck pain Integumentary Denies rash Neurologic Neurologic: Denies headache(s) Endocrine Endocrinology: Denies polydipsia or polyuria Hematologic/Lymphatic Hematologic/Lymphatic: Denies easy bleeding or easy bruising Allergic/Immunologic Allergic/Immunologic ED: Denies urticaria EXAM Physical Exam Narrative Exam Narrative: Patient awake alert no acute distress. Carries on normal conversation. HEENT shows normal mucous membranes. No pallor. No nasal discharge Eye exam shows no pallor or jaundice Neck shows no JVD Lungs are clear bilaterally with good deep breaths. Note: Some data may have been lost as computer shutdown in the middle of this dictation and charting. Heart: Regular without murmur gallop or rub peripheral pulses are equal and normal Abdomen soft, there is tenderness at the left lower quadrant region. No tenderness elsewhere. No mass. Bowel sounds sound normal. no CVA or suprapubic isolated tenderness. Extremities show no edema or tenderness. Patient alert oriented and appropriate. Const Vital Signs: 09/04/22 17:51 Temperature 97.3 F L Temperature Source Temporal Pulse Rate 66 Respiratory Rate 18 Blood Pressure 151/78 H Blood Pressure Mean 102 Pulse Ox 98 Oxygen Delivery Method Room Air MDM MDM MDM Narrative Medical decision making narrative: My independent interpretation of the patient's CT of the abdomen with IV contrast does show some signs of diverticulitis. I did not see a definitive abscess or perforation but we did wait for the final reading. Final reading also did not see an acute perforation. They also make mention of a central disc. Patient does know about this and has been having back pain issues. But he has no neurologic symptoms. Patient CBC is normal. His electrolytes show no acute process and no renal dysfunction. Urinalysis is also normal. I talk with the patient about treatment. We will get him started on Augmentin. We also discussed the significant importance of a clear liquid diet. We also discussed reasons to return that would include worsening pain, vomiting, fevers or other concerns. Lab Data Attestation: I reviewed the patient's lab results. Labs: Laboratory Results - last 24 hr 09/04/22 09/04/22 09/04/22 18:13 18:13 19:16 WBC 8.8 RBC 4.95 Hgb 14.9 Hct 43.0 MCV 86.9 MCH 30.1 MCHC 34.7 RDW Std Deviation 39.4 RDW Coeff of Jade 12.3 Plt Count 256 MPV 9.0 Immature Gran % (Auto) 0.200 Neut % (Auto) 59.8 Lymph % (Auto) 27.6 [place]ienville % (Auto) 10.6 H Eos % (Auto) 1.6 Baso % (Auto) 0.2 Absolute Neuts (auto) 5.2 Absolute Lymphs (auto) 2.42 Nucleated RBC % 0 Sodium 138 Potassium 4.1 Chloride 102 Carbon Dioxide 27.0 Anion Gap 9 BUN 13 Creatinine 1.10 Estim Creat Clear Calc 72.55 Est GFR (MDRD) Af Amer 89 Est GFR (MDRD) Non-Af 73 BUN/Creatinine Ratio 11.8 Glucose 80 Calcium 9.3 Urine Color Yellow Urine Clarity Clear Urine pH 7.0 Ur Specific Rachel 1.010 Urine Protein 30 H Urine Glucose (UA) Normal Urine Ketones 15 H Urine Occult Blood Negative Urine Nitrite Negative Urine Bilirubin Negative Urine Urobilinogen 8 H Ur Leukocyte Esterase Negative Urine RBC 0 SEEN Urine WBC 0 SEEN Ur Squamous Epith Cells 0 SEEN Urine Bacteria 0 SEEN Urine Mucus 0 SEEN Radiography Diagnostic Testing: Clinical Impression(s) from Imaging Studies Abdomen/Pelvis CT 09/04/22 18:50 IMPRESSION: 1. Sigmoid diverticulitis without perforation or abscess. 2. Question central disc herniation at L5-S1. 3. Mild fatty infiltration of the liver. Electronically Signed: Wild Coronel DO at 19:47 EST Reading Location ID and State: [address] [place] [address] Tel [phone], Service support , Discharge Plan Triage Chief Complaint: Abd Pain ED Provider: Ralph Levy Dx/Rx/DC Orders Clinical Impression: Diverticulitis Instructions: ED Diverticulitis Prescriptions: New ondansetron [ondansetron] 4 mg tablet,disintegrating 4 mg PO Q8H PRN PRN (Reason: Nausea) Qty: 10 0RF amoxicillin-pot clavulanate 875-125 mg tablet 1 tab PO BID Qty: 20 0RF [facility] Referrals: [facility] [Primary Care Provider] - 3-5 Days if not improving Disposition Disposition: Home, Self Care What to do if you have Problems For any increased pain, shortness of breath, bleeding, nausea or vomiting, chestpain, or any unexpected problems, contact your Primary Care Provider. Call [facility] ([phone]) or report to the closest Emergency Room. Call 911 if necessary. 09/04/222134 <Electronically signed by Ralph Levy MD> Cosigner Signature (if applicable): CC: [facility] ~ Signed [facility] Work Phone: 1(239) 787-181701-27-2023 History of Present illness Narrative* Nigel Chambers MD - 09/04/2022 5:16 PM EST Patient presents with: Abdominal Pain: Pt reported abdominal pain x1 wk, rated 8. HPI: Abdominal pain: Duration: 5 days Location: whole abdomen Character: sharp, constant Aggravating: walking Relieving: none. Did not improve with BM Pain relievers: loperamide Associated: constipation (improved with one dose of medication), IBS Hx, weird head feeling, incomplete voiding sensation Pertinent negatives: Denies blood in stool, nausea, fever, dysuria, urinary frequency, blood in urine, PAST MEDICAL HISTORY Diagnosis Date Carpal tunnel syndrome DDD (degenerative disc disease), lumbar also neck Dyskinesia of esophagus GERD (gastroesophageal reflux disease) Hiatal hernia IBS (irritable bowel syndrome) Numbness of fingers of both hands Seizure disorder (HCC) 1989 related to elavil PAST SURGICAL HISTORY Procedure Laterality Date EGD TRANSORAL BIOPSY SINGLE/MULTIPLE 10/06/10 ESOPHAGOGASTRODUODENOSCOPY TRANSORAL DIAGNOSTIC 01/05/14 EGD NEUROPLASTY &/TRANSPOS MEDIAN NRV CARPAL TUNNE 03/22/2013 Carpal tunnel decomp - right PAST SURGICAL HISTORY OF hernia surgery, Lt inguinal MEDICATIONS: omeprazole (PRILOSEC) 20 mg capsule 40 mg. simvastatin (ZOCOR) 20 mg tablet divalproex ER (DEPAKOTE ER) 500 mg 24 hr tablet 1,000 mg. loperamide (IMODIUM A-D) 1 mg/7.5 mL oral liquid TAKE 7.5ML BY MOUTH FOUR TIMES A DAY NEEDED FORDIARRHEA giqriay-tlrtepchw-xjawbsi D3 500 mg-5 mcg (200 unit) per tablet Take 1 tablet by mouth twice daily. ALLERGIES: ALLERGIES Allergen Reactions Elavil [Amitriptyli* Mental Status Change siezure VITALS: BP 136/78 Pulse 73 Temp 37.1 C (98.7 F) (Tympanic) Resp 16 Wt 93.1 kg (205 lb 3.2 oz) SpO2 98% BMI 31.20 kg/m PHYSICAL EXAM: GEN: pleasant, no acute distress, alert HEENT: PERRL, EOMI, MMM NECK: supple, no lymphadenopathy, no thyromegaly HEART: regular rate, regular rhythm, no murmurs LUNGS: clear to auscultation, no wheezes or crackles, no increased WOB ABD: soft, non-distended, no masses palpated, tender LLQ, RLQ, and suprapubic. Abdominal pain with transitions. EXT: no clubbing, no cyanosis, no edema ASSESSMENT/PLAN: 1. Abdominal pain, lower - ICD9: 789.09, ICD10: R10.30 Abdominal tenderness on exam and possible peritoneal signs. Referred to ER for further evaluation. [facility] to [facility] by Wize. Nigel Chambers MD documented [facility] Miscellaneous Notes* Telephone Encounter - Harriet Lawrence - 12/03/2021 4:02 PM EDT Pt. notified of test results as per doctors interpretation. Appt scheduled. Harriet Lawrence * Telephone Encounter - Harriet Lawrence - 12/03/2021 4:02 PM EDT ----- Message from David Warren sent at 12/03/2021 12:23 PM EDT ----- Please call patient to inform him that his xrays show continued healing of medial malleolar fracture. I would like to arrange virtual visit to see how he is doing and then discuss progression David Warren DPM documented in this encounterS[facility]04-06-2022 Miscellaneous Notes* Telephone Encounter - Gloria Mitchell MA - 11/12/2021 1:10 PM EDT Spoke to patient and advised him of message from Dr. Warren. Patient stated he did go ahead &start wearing the brace. Patient verbalized understanding and will do follow up x-ray in about 3 weeks. Gloria Mitchell MA * Telephone Encounter - Gloria Mitchell MA - 11/12/2021 1:10 PM EDT ----- Message from David Warren sent at 11/12/2021 8:19 AM EDT ----- Please call patient to inform him that his xrays do show healing avulsion fracture. If he has no pain, he can transition from boot into ankle brace. I would prefer a lace up ankle brace with velcro straps. I would prefer he transition at 1 hour/day and increase daily. I would repeat xrays in 3 weeks. David Warren DPM documented in this encounterS[facility]04-04-[facility]22 History of Present illness Narrative* RT Livia(R) - 11/10/2021 4:40 PM EDT Radiology Service Progress Note PATIENT NAME: Clifford Horn DATE OF SERVICE: November 10, 2021 TIME: 4:39 PM PATIENT IDENTITY VERIFICATION COMPLETED USING TWO (2) IDENTIFIERS: Name and Date of confirmedby patient verbally. FALL SCREENING: Has the patient had 2 falls in the last year or 1 fall with injury or currently using an Ambulatory Assistive Device (Walker, Cane, Wheelchair, Crutches, etc.)? No PATIENT GENDER DATA: Male PATIENT RELEVANT IMPLANT DATA REVIEWED: Not Applicable RADIOLOGY DEPARTMENT: General X-ray: Exam(s) Completed: Lower Extremity X- Ray(s): Ankle, Left PERIPHERAL IV DATA: Not applicable SIGNED BY: RT Livia(R) November 10, 2021 4:39 PM documented in this encounterShel[facility]02-25-2022 History of Present illness Narrative* Elizabeth Sewell RT(R) - 10/03/2021 8:10 AM EST Radiology Service Progress Note PATIENT NAME: Clifford Horn DATE OF SERVICE: October 03, 2021 TIME: 8:05 AM PATIENT IDENTITY VERIFICATION COMPLETED USING TWO (2) IDENTIFIERS: Name and Date of confirmedby patient verbally. FALL SCREENING: Has the patient had 2 falls in the last year or 1 fall with injury or currently using an Ambulatory Assistive Device (Walker, Cane, Wheelchair, Crutches, etc.)? No PATIENT GENDER DATA: Male PATIENT RELEVANT IMPLANT DATA REVIEWED: Yes RADIOLOGY DEPARTMENT: General X-ray: Exam(s) Completed: Lower Extremity X- Ray(s): Ankle, Left PERIPHERAL IV DATA: Not applicable SIGNED BY: RT Sara(R) October 03, 2021 8:05 AM [facility]* Diagnosis Closed nondisplaced fracture of medial malleolus of left tibia, initial encounter documented in this encounter [facility] note* Diagnosis Closed nondisplaced fracture of medial malleolus of left tibia, initial encounter- Primary documented in this encounter [facility] noteNo assessment information availableWUpper Valley Medical Center Work Phone: Evaluation note* Diagnosis Abdominal pain, lower- Primary Abdominal pain, other specified site documented in this encounter [facility] note* Diagnosis Special screening for malignant neoplasms, colon- Primary documented in this encounter [facility] note* Diagnosis Diverticulitis- Primary Diverticulitis of colon (without mention of hemorrhage) Gastroesophageal reflux disease, unspecified whether esophagitis present Throat clearing Other symptoms involving head and neck documented in this encounter [facility] note* Diagnosis Bacterial sinusitis- Primary Unspecified sinusitis (chronic) documented in this encounter [facility] note* Diagnosis Acute left ankle pain documented in this encounter [facility] note* Diagnosis Pain in both hands [facility] Diagnosis Pain in both hands- Primary Carpal tunnel syndrome, left Carpal tunnel syndrome [facility] (narrative)* Diagnostic Procedure Only (Routine) - Closed Specialty Diagnoses / Procedures Referred By Keyur corbett Referred To Contact XR IMAGING Diagnoses Closed nondisplaced fracture of medial malleolus of left tibia, initial encounter Procedures XR ANKLE GENERAL 3V AP/LAT/OBL LEFT RADEX ANKLE COMPLETE MINIMUM 3 VIEWS David Warren [address] [place] [address] Xr Imaging Referral ID Status Reason Start Date Expiration Date V isits Requested Visits Authorized [id number] Closed Auto-Generate d Referral 10/28/2021 11/27/2022 1 1 [facility] for referral (narrative)* Diagnostic Procedure Only (Routine) - Pending Review Specialty Diagnoses / Procedures Referred By Contac t Referred To Contact XR IMAGING Diagnoses Closed nondisplaced fracture of medial malleolus of left tibia, initial encounter Procedures XR ANKLE GENERAL 3V AP/LAT/OBL LEFT RADEX ANKLE COMPLETE MINIMUM 3 VIEWS David Warren [address] [place] [address] Xr Imaging Referral ID Status Reason Start Date Expiration Date Visits Requested Visits Authorized [id number] Pending Review Auto-Generat ed Referral 12/03/2021 12/12/2022 1 1 [facility] for referral (narrative)* Diagnostic Procedure Only (Routine) - Closed Specialty Diagnoses / Procedures Referred By Contac t Referred To Contact XR IMAGING Diagnoses Closed nondisplaced fracture of medial malleolus of left tibia, initial encounter Procedures XR ANKLE GENERAL 3V AP/LAT/OBL LEFT RADEX ANKLE COMPLETE MINIMUM 3 VIEWS David Warren[address] [place] [address] [place] [id number] Referral ID Status Reason Start Date Expiration Date V isits Requested Visits Authorized [id number] Closed Auto-Generate d Referral 12/03/2021 12/12/2022 1 1 [facility] for referral (narrative)* Diagnostic Procedure Only (Urgent) - Closed Specialty Diagnoses / Procedures Referred By Contac t Referred To Contact XR IMAGING Diagnoses Acute left ankle pain Procedures XR ANKLE GENERAL 3V AP/LAT/OBL LEFT RADEX ANKLE COMPLETE MINIMUM 3 VIEWS Haylee Cruz APRN.FOOD TASTER [address] [id number] [place] [address] Referral ID Status Reason Start Date Expiration Date V isits Requested Visits Authorized [id number] Closed Auto-Generate d Referral 10/03/2021 11/02/2022 1 1 [facility] for visit Narrative* Diagnostic Procedure Only (Routine) - Closed Specialty Diagnoses / Procedures Referred By Contac t Referred To Contact XR IMAGING Diagnoses Closed nondisplaced fracture of medial malleolus of left tibia, initial encounter Procedures XR ANKLE GENERAL 3V AP/LAT/OBL LEFT RADEX ANKLE COMPLETE MINIMUM 3 VIEWS David Warren [address] [place] [address] Xr Imaging Referral ID Status Reason Start Date Expiration Date V isits Requested Visits Authorized [id number] Closed Auto-Generate d Referral 10/28/2021 11/27/2022 1 1 [facility] for visit Narrative* Diagnostic Procedure Only (Routine) - Closed Specialty Diagnoses / Procedures Referred By Contac t Referred To Contact XR IMAGING Diagnoses Closed nondisplaced fracture of medial malleolus of left tibia, initial encounter Procedures XR ANKLE GENERAL 3V AP/LAT/OBL LEFT RADEX ANKLE COMPLETE MINIMUM 3 VIEWS David Warren [address] [place] [address] [place] [address] Referral ID Status Reason Start Date Expiration Date V isits Requested Visits Authorized [id number] Closed Auto-Generate d Referral 12/03/2021 12/12/2022 1 1 [facility] for visit Narrative* Diagnostic Procedure Only (Urgent) - Closed Specialty Diagnoses / Procedures Referred By Contac t Referred To Contact XR IMAGING Diagnoses Acute left ankle pain Procedures XR ANKLE GENERAL 3V AP/LAT/OBL LEFT RADEX ANKLE COMPLETE MINIMUM 3 VIEWS Haylee Cruz APRN.FOOD TASTER [address] [place] [address] [place] [id number] Referral ID Status Reason Start Date Expiration Date V isits Requested Visits Authorized [id number] Closed Auto-Generate d Referral 10/03/2021 11/02/2022 1 1 [facility] for visit Narrative* Diagnostic X-Ray (Routine) - New Request Specialty Diagnoses / Procedures Referred By Contac t Referred To Contact Diagnoses Pain in both hands Procedures XR HAND LEFT 3+ VIEWS Zane Gonzalez MD [address] [place] [address] Phone: tel: fax: Referral ID Status Reason Start Date Expiration Date V isits Requested Visits Authorized [id number] New Request 04/30/2025 05/25/2026 1 1 [facility] Chief Complaint and Reason for Visit Chief Complaint FACIAL/JAW PAIN, STR ALEX RISK FACTORS Chief Complaint ABD PAIN Advance Directives No Advanced Directives Records Found Advance Directive Response Recorded Date/ Time Living Will No September 04 6:35pm Power of Police Department Secretary No September 04, 2022 6:35pm Health Concerns Infection Onset Date Last Indicated Resolved Time COVID-19 Confirmed 05/23/2021 05/23/2021 8:53 PM EDT Summary Purpose Family History No Family History Records FoundNo Family History Records FoundNo Family History Records Found Additional Source Comments Source Comments (unrecognize d section and content) In the event this informatio n is protected by the Federal Confidentiality of Alcohol and Drug Abuse Patient Records regulations: The Federal rules restrict any use of the information to criminally investigate or prosecute any alcohol or drug abuse patient.[facility] HospitalIn the event this information is protected by the Federal Confidentiality of Alcohol and Drug Abuse Patient Records regulations: The Federal rules restrict any use of the information to criminally investigate or prosecute any alcohol or drug abuse patient.[facility] HospitalIn the event this information is protected by the Federal Confidentiality of Alcohol and Drug Abuse Patient Records regulations: The Federal rules restrict any use of the information to criminally investigate or prosecute any alcohol or drug abuse patient.[facility] HospitalIn the event this information is protected by the Federal Confidentiality of Alcohol and Drug Abuse Patient Records regulations: The Federal rules restrict any use of the information to criminally investigate or prosecute any alcohol or drug abuse patient.[facility] HospitalIn the event this information is protected by the Federal Confidentiality of Alcohol and Drug Abuse Patient Records regulations: The Federal rules restrict any use of the information to criminally investigate or prosecute any alcohol or drug abuse patient.[facility] HospitalIn the event this information is protected by the Federal Confidentiality of Alcohol and Drug Abuse Patient Records regulations: The Federal rules restrict any use of the information to criminally investigate or prosecute any alcohol or drug abuse patient.[facility] HospitalIn the event this information is protected by the Federal Confidentiality of Alcohol and Drug Abuse Patient Records regulations: The Federal rules restrict any use of the information to criminally investigate or prosecute any alcohol or drug abuse patient.[facility] HospitalIn the event this information is protected by the Federal Confidentiality of Alcohol and Drug Abuse Patient Records regulations: The Federal rules restrict any use of the information to criminally investigate or prosecute any alcohol or drug abuse patient.[facility] HospitalIn the event this information is protected by the Federal Confidentiality of Alcohol and Drug Abuse Patient Records regulations: The Federal rules restrict any use of the information to criminally investigate or prosecute any alcohol or drug abuse patient.[facility] ClinicIn the event this information is protected by the Federal Confidentiality of Alcohol and Drug Abuse Patient Records regulations: The Federal rules restrict any use of the information to criminally investigate or prosecute any alcohol or drug abuse patient.[facility] HospitalIn the event this information is protected by the Federal Confidentiality of Alcohol and Drug Abuse Patient Records regulations: The Federal rules restrict any use of the information to criminally investigate or prosecute any alcohol or drug abuse patient.[facility] HospitalIn the event this information is protected by the Federal Confidentiality of Alcohol and Drug Abuse Patient Records regulations: The Federal rules restrict any use of the information to criminally investigate or prosecute any alcohol or drug abuse patient.[facility] Care Teams (unrecognized sec tion and content) Entry Level Financial Analyst Relationship Specialty Start Date End Date Ashu Boudreaux MD [address] [place] [address] PCP - General Family Practice 06/02/11 Entry Level Financial Analyst Relationship Specialty Start Date End Date Ashu Boudreaux MD [address] [place], [place] [id number] PCP - General Family Practice 06/02/11 Entry Level Financial Analyst Relationship Specialty Start Date End Date Ashu Boudreaux MD [address] [place] [address] PCP - General Family Practice 06/02/11 Team Status: Active Member Role Status Dates [facility] Primary Care Provider Active Team Status: Inactive Member Role Status Dates Dr. Ralph Levy MD Emergency Provider Active [facility] Primary Care Provider Active Entry Level Financial Analyst Relationship Specialty Start Date End Date Ashu Boudreaux MD [address] [place] [address] PCP - General Family Medicine 06/02/11 Entry Level Financial Analyst Relationship Specialty Start Date End Date Ashu Boudreaux MD [address] [place] [address] PCP - General Family Medicine 06/02/11 Entry Level Financial Analyst Relationship Specialty Start Date End Date Ashu Boudreaux MD [address] [place] [address] PCP - General Family Medicine 06/02/11 Entry Level Financial Analyst Relationship Specialty Start Date End Date Ashu Boudreaux MD [address] [place] [address] PCP - General Family Medicine 06/02/11 Entry Level Financial Analyst Relationship Specialty Start Date End Date Ashu Boudreaux MD [address] [place] [address] PCP - General Family Medicine 06/02/11 Entry Level Financial Analyst Relationship Specialty Start Date End Date Ashu Boudreaux MD [address] [place] [address] PCP - General Family Medicine 06/02/11 Entry Level Financial Analyst Relationship Specialty Start Date End Date Ashu Boudreaux MD [address] [place] [address] PCP - General Family Medicine 06/02/11 Reason for Visit (unrecogniz ed section and content) Reason Comments Results Reason Comments Abdominal Pain Pt reported abdomina l pain x1 wk, rated 8. Reason Comments Orders Reason Comments Consult Colonoscopy consult Specialty Diagnoses / Procedures Referred By Contac t Referred To Contact General Surgery / GENERAL SURGERY Diagnoses diverticulitis colon consult - va referring - in scanned doc Procedures [facility] [place] Loren Springer PA-C [address] [place] [address] Referral ID Status Reason Start Date Expiration Date V isits Requested Visits Authorized [id number] Outside PCP 12/23/2022 02/21/2023 1 1 Reason Comments Sinus Problem Eye discharge, conge stion, sinus pressure x 7 days Reason Comments Pain Specialty Diagnoses / Procedures Referred By Contac t Referred To Contact Orthopaedics Diagnoses Pain of hand, unspecified laterality Emily Regalado, [employer]ER Phone: tel: fax: Zane Gonzalez MD [address] [place] [address] Phone: tel: fax: Referral ID Status Reason Start Date Expiration Date V isits Requested Visits Authorized [id number] Pending Review 05/01/2025 05/01/2026 1 999 Goals (unrecognized section and content) Goals may be documented in a n alternate sectionGoals may be documented in an alternate section (unrecognized sect ion and content) No Status Records FoundNo Status Records FoundNo Status Records Found INFORMATION SOURCE (unrecogn ized section and content) DATE CREATED AUTHOR 10/21/2023 [facility] DATE CREATED AUTHOR AUTHOR'S ORGANIZ ATION 05/11/2025 [facility] DATE CREATED AUTHOR AUTHOR'S ORGANIZ ATION 05/23/2025 [facility] FOR RECORDS PERTAINING TO PATIENTS WHO ARE OR HAVE BEEN ENROLLED IN A CHEMICAL DEPENDENCY/SUBSTANCEABUSE PROGRAM, SOME INFORMATION MAY BE OMITTED. This clinical summary was aggregated from multiple sources. Caution should be exercised in using it in the provision of clinical care. This summary normalizes information from multiple sources, and as a consequence, information in this document may materially change the coding, format and clinical context of patient data. In addition, data may be omitted in some cases. CLINICAL DECISIONS SHOULD BE BASED ON THE PRIMARY CLINICAL RECORDS. [facility]. provides no warranty or guarantee of the accuracy or completeness of information in this document.
--- OUTSIDE RECORDS SUMMARY | 2025-05-28 08:04 | XMS RPT_ITS | CCD ---
Author Organization [facility] Care Team Providers Care Tool Honing Machine Set Up Operator Name Role Phone Ashu Boudreaux MD Primary Care Provider [phone] LOREN SPRINGER Referring Unavailable ASHU BOUDREAUX Primary [...] Attending Unavailable Shalonda Vizcarra Referring [facility] [facility] Unavailable Shalonda Vizcarra Attending Unavailable Shalonda Vizcarra Referring [facility] [facility] [place] [facility] [facility] Unavailable Cameron Garcia Attending Unavailable Cameron Garcia Referring [facility] [facility] Unavailable Cameron Garcia Attending Unavailable Cameron Garcia Referring Unavailable Allergies Allergy Classification Reported Allergen(s) Allergy Type Date of Onset Reaction(s) Facility (13 sources) Amitriptyline; Translations: [AMITRIPTYLINE HCL] Drug Allergy 6 Mental Status Change [facility] Work Phone: (3 sources) Amitriptyline Drug Allergy 3 Seizures [facility] (1 source) Amitriptyline Drug Allergy 3 [facility] Repository Medications Current Medications Medication Drug [...] 1 tablet by luisana th twice daily mlltzlt-jffjcvrqi-fupknxi D3 500 mg-5 mc g (200 unit) [...] Brain W/WO Contraston 2024 Brain W/WO Contrast [facility] [address], [place] [id number] Brain W/WO Contrast MR#: [id number] Acct: [id number] Name: CLIFFORD HORN Rep #: [id number] : 1965 M 59 From: Ean hernandez MD [place]CP: [place] [facility] Status: REG CLI Study: Brain W/WO Contrast Date of Exam: 05/22/25 Exam# [id number] Ordering Dr: DAROSZEWSKI,LOUIS PROCEDURE: BRAIN W/WO CONTRAST [...] of altered signal, possibly vasculopathic. Reading Location: [place] [address] CC: LOUIS LYONS; [facility] Agricultural Equipment Salesperson: Signed Normal [facility] MRA Head ONLY without Contra ston 05-22-2025 MRA Head ONLY without Contrast [facility] [address] [place] [address] MRA Head ONLY without Contrast MR#: [id number] Acct: [id number] Name: CLIFFORD HORN Rep #: [id number] : 1965 M 59 From: Ean hernandez MD PCP: [facility] Status: REG CLI Study: MRA Head ONLY without Contrast Date of Exam: Exam# [id number] Ordering Dr: LOUIS LYONS PROCEDURE: MRA HEAD [...] Unremarkable MRA of the intracranial vessels constituting ([place]). Reading Location: [place] [address] CC: LOUIS LYONS; [facility] Agricultural Equipment Salesperson: Signed Normal [facility] MRA Neck WITH and W/O Contra ston 05-22-2025 MRA Neck WITH and W/O Contrast [facility] [address] [place] [address] MRA Neck WITH and W/O Contrast MR#: [id number] Acct: [id number] Name: CLIFFORD HORN Rep #: [id number] : 1965 M 59 From: Ean hernandez MD PCP: [facility] Status: REG CLI Study: MRA Neck WITH and W/O Contrast Date of Exam: Exam# [id number] Ordering Dr: LOUIS LYONS PROCEDURE: MRA NECK [...] extracranial carotid and vertebral arteries. [facility] CC: LOUIS LYONS; [facility] Agricultural Equipment Salesperson: Signed Normal [facility] UPPER EXTREMITY INJECTION: L carpal tunnelon 05-03-2025 Radiology Study observation (narrative) [employer] UPPER EXTREMITY INJECTION: L carpal tunnelon 05-01-2025 [...] was prepped in the usual sterile fashion. [facility] Abdomen Limitedon 11-27-2024 Abdomen Limited [facility] [address], [place] [address] Abdomen Limited MR#: [id number] Acct: [id number] Name: CLIFFORD HORN Rep #: [id number] : 1965 M 59 From: Peterson lutz MD PCP: [facility] Status: REG CLI Study: Abdomen Limited Date of Exam: 11/27/24 Exam# [id number] Ordering Dr: Shalonda Vizcarra METAPHYSICIAN -C PROCEDURE: ABDOMEN LIMITED 11/27/2024 REASON FOR [...] The liver is not enlarged. Reading Location: [place] [address] CC: JEAN Vizcarra; [facility] Agricultural Equipment Salesperson: Signed Normal [facility] Liveron 06-08-2024 Liver [facility] [address], [place] [address] Liver MR#: [id number] Acct: [id number] Name: CLIFFORD HORN Rep #: [id number] : 1965 M 58 From: Dk mcneill MD PCP: [facility] Status: REG CLI Study: Liver Date of Exam: 06/08/24 Exam# [id number] Ordering Dr: SHALONDA VIZCARRA [id number] STUDY: ABDOMINAL ULTRASOUND - RIGHT UPPER QUADRANT [...] at 23:58 EDT , CC: SHALONDA VIZCARRA; [facility] Agricultural Equipment Salesperson: Signed Normal [facility] CNOVon 10-19-2023 CNOV Office Visit (UCWSTR ) CLIFFORD HORN ([id number]) 1965 M Date Time Provider Department 10/19/23 [...] Discussed expected course of illness Marleny Santiago APRN.CONTAINER FINISHING INSPECTOR Adult Sinusitis Patient Education What is Sinusitis? Sinusitis [tiyt-kzl-ouoe-tis] is inflammation of the sinuses or swelling [...] help. You may be instructed to take tdfd-hgp-ekvzpio medications for symptoms. including fever reducers acetaminophen or ibuprofen, nasal saline spray, cough and cold preparations and decongestants as prescribed by the physician, nurse practitioner or physician assistant front office manager. Self-Care and Prevention: Rest Fluids for hydration Good hand washing Humidifier Avoid smoking and exposure to second hand smoke Avoid sick contacts Marleny Santiago APRN.CONTAINER FINISHING INSPECTOR 10/19/2023 5:06 PM Signed Subjective Sinus Problem [...] at bedtime. (more content not included)... Normal [facility] Colonoscopyon 01-07-2023 Colonoscopy [facility] Gastrointestinal Endoscopy Patient Name: Clifford Horn [...] for review. Procedure Code(s): --- Professional --- 51973, Colonoscopy, flexible; with biopsy, single or multiple Diagnosis Code(s): --- Professional --- K57.30, (more content not included)... Normal [facility] HISTORY PHYSICALon 3 HISTORY PHYSICAL HNO ID: [id number] Author: Zaira Murphy MD Service: General Surgery Author Type: Physician Type: HANDP Filed: 01/07/2023 12:03 PM Note Text: HISTORY AND PHYSICAL Clifford Horn 1965 REFERRING PHYSICIAN: Lv Sd CHIEF COMPLAINT: Consult (Colonoscopy consult) HPI: The patient is a 57 year old male referred for endoscopy. Clifford notes an episode of diverticulitis for which he was treated in August 2022-seen at [facility] initially and [place] [facility] [place]. Notes symptoms resolved completely with [...] FOUR TIMES A DAY NEEDED FOR DIARRHEA iekvhzm-lryzejifa-wwhx min D3 500 mg-5 mcg (200 unit) [...] Age of Onset Emphysema Mother Heart Father MS age 69 Colon Cancer Maternal Grandfather 90 REVIEW OF SYMPTOMS: The review of systems data was entered by the nurse and reviewed by wy Nursing Notes: Ina Hernandez RN 12/23/2022 10:15 [...] and den (more content not included)... Normal [facility] NURSING PROGon 01-07-2023 NURSING PROG HNO ID: [id number] Author: Liudmila Neumann RN Service: ? Author [...] Family at bedside. Liudmila Neumann RN Normal [facility] SURGICAL PATHOLOGYon 023 CASE REPORT Normal [facility] Comment on above: Order Comment: Speci men Type: TISSUE SPECIMEN Ordering Facility: [facility] Address: [address] [place] [phone] Result Comment: Surg ical Pathology Report Case: [id number] Authorizing Provider: Zaira Murphy MD Collected: 01/07/2023 12:56 PM Ordering Location: Ambulatory Surgery Received: 01/07/2023 03:49 PM Pathologist: Cameron Bosch MD Specimens: A) - ANTRUM (STOMACH) BIOPSY, Antral bx h/h B) - ESOPHAGOGASTRIC JUNCTION BIOPSY, GE junction bx C) - ESOPHAGUS MID BIOPSY D) - SIGMOID COLON POLYP Performed By: #### S #### [facility] CLIA [id number] [address] [facility] [address] [place] FINAL DIAGNOSIS Normal [facility] Comment on above: Order Comment: Speci men Type: TISSUE SPECIMEN Ordering Facility: [facility] Address: [address] [place] [phone] Result Comment: Demetris turcios, antrum, biopsy: - [...] hyperplastic change. Performed By: #### S #### [facility] CLIA [id number] [address] [place] [address] OF [facility] FINAL PERFORMING LAB Normal [facility] Comment on above: Order Comment: Speci men Type: TISSUE SPECIMEN Ordering Facility: [facility] Address: [address] [place] [address] Result Comment: Diag nostic interpretation performed at [place] [address] CLIA# [id number] [employer] C[employer] Farmer: Marky Tafoya M.D. Performed By: #### S #### [facility] CLIA [id number] [address] [place] [address] GROSS DESCRIPTION Normal [facility] Comment on above: Order Comment: Speci men Type: TISSUE SPECIMEN Ordering Facility: [facility] Address: [address] [place] [address] Result Comment: A. A NTRUM (STOMACH) BIOPSY [...] one cassette. Gross examination performed at [place] [id number] KK January 08, 2023 12:51 AM Performed By: #### S #### [facility] CLIA [id number] [address] [place] [address] DESK [place] [id number] [place] Upper GI endoscopyon 023 Upper GI endoscopy Josie [facility] Gastrointestinal Endoscopy Patient Name: Clifford Horn Procedure [...] future endoscopies Procedure Code(s): --- Professional --- 73438, Esophagogastroduodenos copy, flexible, transoral; with biopsy, single or multiple Diagnosis Code(s): --- Professional --- R12, Heartburn R13.10, Dysphagia, unspecified K44.9, Diaphragmatic hernia without obstruction or gangrene K31.89, Other diseases of stomach and duodenum CPT copyright 2020 [employer]. All rights reserved. The codes documented in this report are preliminary and upon evaporative cooler installer review may be revised to meet current compliance requirements. Attending Participation: I personally performed the entire procedure. Scope In: 12:53:34 PM Scope Out: 1:00:43 PM MD Zaira Campos MD 01/07/2023 1:04:38 PM This report has been signed electronically by Zaira Murphy MD Number of Addenda: 0 Note Init (more content not included)... Normal [facility] CNOVon 12-23-2022 CNOV Office Visit (GENSWS ) JUSTINACLIFFORD ([id number]) 1965 M Date Time Provider Department 12/23/22 9:00 AM LOREN SPRINGER During your visit today, we recorded the following information about you: Temperature Pulse Blood pressure Weight 97.7 degrees 66/minute 142/80 95.5 kg Height 1.727 m Loren Springer PA-C 12/29/2022 12:54 PM Addendum HISTORY AND PHYSICAL Clifford Denny Justina 1965 REFERRING PHYSICIAN: Lv, Sd CHIEF COMPLAINT: Consult (Colonoscopy consult) HPI: The patient is a 57 year old male referred for endoscopy. Clifford notes an episode of diverticulitis for which he was treated in August 2022-seen at [facility] initially and [place]. Notes symptoms resolved completely with [...] FOUR TIMES A DAY NEEDED FOR DIARRHEA cuzbgvl-gwdvgnufy-ukua min D3 500 mg-5 mcg (200 unit) [...] Age of Onset Emphysema Mother Heart Father MS age 69 Colon Cancer Maternal Grandfather 90 REVIEW OF SYMPTOMS: The review of systems data was entered by the nurse and reviewed by wy Nursing Notes: Ina Hernandez RN 12/23/2022 10:15 [...] Psychiatric: Th (more content not included)... Normal [facility] CLIFFORD HORN ([id number]) 1965 M Date Time Provider Department 12/17/22 [...] TIMES A DAY NEEDED FOR DIARRHEA - utpjzka-tdkjowyyh-yhyz min D3 500 mg-5 mcg (200 unit) [...] Status:Closed by ESSIE GRANT on 12/17/22 Normal [facility] Absolute lymphocyte countOrd ered By: ED PROVIDER on 09-04-2022 Lymphocytes Auto (Unsp spec) [#/Vol] 2.42 10*3/uL 0.83-4.51 [facility] Basophil percentageOrdered B y: ED PROVIDER on 09-04-2022 Basophil percentage 0 SEEN /hpf 0-5 [facility] Basophils/100 WBC (Bld) 0.2 % 0-1 [facility] Chloride [Moles/Vol] 102 mmol/L 98-107 [facility] Eosinophils/100 WBC (Bld) 1.6 % 0-5 [facility] Glucose [Mass/Vol] 80 mg/dL 74-106 [facility] Neutrophils (Bld) [#/Vol] 5.2 10*3/uL 2.0-7.7 [facility] Neutrophils/100 WBC (Bld) 59.8 % 47-70 [facility] Potassium [Moles/Vol] 4.1 mmol/L 3.5-5.1 [facility] Sodium [Moles/Vol] 138 mmol/L 136-145 [facility] WBC (Bld) [#/Vol] 8.8 10*3/uL 4.4-11.0 [facility] Bilirubin Test strip Ql (U)O rdered By: ED PROVIDER on 09-04-2022 Bilirubin Ql (U) Negative Negative [facility] Blood erythrocytes count (nu mber/volume)Ordered By: ED PROVIDER on 09-04-2022 RBC (Bld) [#/Vol] 4.95 10*6/uL 4.6-6.2 [facility] Blood hemoglobin measurement (mass/volume)Ordered By: ED PROVIDER on 09-04-2022 Hemoglobin (Bld) [Mass/Vol] 14.9 g/dL 13.0-16.5 [facility] Blood lymphocytes/100 leukoc ytesOrdered By: ED PROVIDER on 09-04-2022 Lymphocytes/100 WBC (Bld) 27.6 % 19-41 [facility] Blood monocytes/100 leukocyt esOrdered By: ED PROVIDER on 09-04-2022 Monocytes/100 WBC (Bld) 10.6 % 0-10 [facility] Blood platelet mean volumeOr dered By: ED PROVIDER on 09-04-2022 Platelet mean volume (Bld) [Entitic vol] 9.0 fL 6.2-12.0 [facility] Determination of erythrocyte mean corpuscular volume (MCV)Ordered By: ED PROVIDER on 09-04-2022 MCV (RBC) [Entitic vol] 86.9 fL 80-94 [facility] Hematocrit Auto (Bld) [Volum e fraction]Ordered By: ED PROVIDER on 09-04-2022 Hematocrit (Bld) [Volume fraction] 43.0 % 40-54 [facility] Ketones Test strip Ql (U)Ord ered By: ED PROVIDER on 09-04-2022 Ketones Ql (U) 15 mg/dl Negative [facility] Laboratory - Chemistry and C hemistry - challengeOrdered By: ED PROVIDER on 09-04-2022 CO2 [Moles/Vol] 27.0 mmol/L 21.0-32.0 [facility] Urea nitrogen/Creatinine [Mass ratio] 11.8 mg/mg 10-20 [facility] - Hematology and Cell countsOrdered By: ED PROVIDER on 09-04-2022 Erythrocyte distribution width (RBC) [Entitic vol] 39.4 fL 35.1-43.9 [facility] Erythrocyte distribution width (RBC) [Ratio] 12.3 % 11.6-14.6 [facility] Immature granulocytes/100 WBC (Bld) 0.200 % 0.0-0.9 [facility] Comment on above: IG% - Immature Granu locytes (promyelocytes, myelocytes and metamyelocytes) > 1% indicates that a LEFT SHIFT is Present. MCH (RBC) [Entitic mass] 30.1 pg 27.0-32.0 [facility] Nucleated RBC/100 WBC (Bld) [Ratio] 0 % 0-5 [facility] MCHC Auto (RBC) [Mass/Vol]Or dered By: ED PROVIDER on 09-04-2022 MCHC (RBC) [Mass/Vol] 34.7 g/dL 32-36 [facility] Mucus LM Ql (Urine sed)Order ed By: ED PROVIDER on 09-04-2022 Mucus Ql (Urine sed) 0 SEEN /hpf [facility] Nitrite Test strip Ql (U)Ord ered By: ED PROVIDER on 09-04-2022 Nitrite Ql (U) Negative Negative [facility] No Panel InformationOrdered By: ED PROVIDER on 09-04-2022 Estimated Creatinine Clearance Calc 72.55 ml/min [facility] Estimated GFR (MDRD) Amer 89 mL/min >60 [facility] Comment on above: GFR Calc Estimated GFR (MDRD) Non-Af Amer 73 mL/min >60 [facility] Comment on above: Non- GFR Calc Platelets bldOrdered By: ED PROVIDER on 09-04-2022 Platelets (Bld) [#/Vol] 256 10*3/uL 150-450 [facility] Protein Test strip Ql (U)Ord ered By: ED PROVIDER on 09-04-2022 Protein Ql (U) 30 mg/dl Negative [facility] Serum or plasma calcium seema urement (mass/volume)Ordered By: ED PROVIDER on 09-04-2022 Calcium [Mass/Vol] 9.3 mg/dL 8.5-10.1 [facility] Serum or plasma creatinine m easurement (mass/volume)Ordered By: ED PROVIDER on 09-04-2022 Creatinine [Mass/Vol] 1.10 mg/dL 0.70-1.30 [facility] Comment on above: The validity of the calculated GFR & GFRAA in patients over 70 years has not been determined. Clinical correlation is essential. Serum or plasma urea nitroge n measurement (mass/volume)Ordered By: ED PROVIDER on 09-04-2022 Urea nitrogen [Mass/Vol] 13 mg/dL 7-18 [facility] Squamous epithelial cells de tection in urine sediment by light microscopyOrdered By: ED PROVIDER on 09-04-2022 Epithelial cells.squamous LM Ql (Urine sed) 0 SEEN /hpf 0-5 [facility] Thin prep Papanicolaou smear with manual screeningOrdered By: ED PROVIDER on 09-04-2022 Thin prep Papanicolaou smear with manual screening 9 5-15 [facility] Urine blood detectionOrdered By: ED PROVIDER on 09-04-2022 RBC Ql (U) Negative Negative [facility] RBC Ql (U) 0 SEEN /hpf 0-5 [facility] Urine clarityOrdered By: ED PROVIDER on 09-04-2022 Clarity (U) Clear Clear [facility] Urine color determinationOrd ered By: ED PROVIDER on 09-04-2022 Color (U) Yellow Yellow [facility] Urine glucose detectionOrder ed By: ED PROVIDER on 09-04-2022 Glucose Ql (U) Normal mg/dl Normal [facility] Urine leukocyte esterase det ection by dipstickOrdered By: ED PROVIDER on 09-04-2022 Leukocyte esterase Test strip Ql (U) Negative Negative [facility] Urine pHOrdered By: ED PROVI HALEY on 09-04-2022 pH (U) 7.0 [pH] 5.0 - 8.0 [facility] Urine sediment bacteria coun t by microscopy (number/high power field)Ordered By: ED PROVIDER on 09-04-2022 Bacteria LM.HPF (Urine sed) [#/Area] 0 /[HPF] None Seen [facility] Urine specific gravity measu rementOrdered By: ED PROVIDER on 09-04-2022 Specific gravity (U) [Rel density] 1.010 1.002-1.030 [facility] Urobilinogen Auto test strip Ql (U)Ordered By: ED PROVIDER on 09-04-2022 Urobilinogen Ql (U) 8 mg/dl Normal [facility] - left AP and Later al and obliqueon 12-02-2021 IMPRESSION: Healing medial malleolar avulsion fracture without interval complication. Agricultural Equipment Salesperson: PSCB Transcribe Date/Time: Dec 02 2021 5:57P [...] medial malleolar avulsion fracture without interval complication. Agricultural Equipment Salesperson: KENNETH Transcribe Date/Time: Dec 02 2021 5:57P Dictated by : RUTH MUÑIZ MD This examination was interpreted and the report reviewed and electronically signed by: RUTH MUÑIZ MD on Dec 02 2021 5:59PM EST [facility] Radiology Study observation (narrative) [facility] XR Ankle - left AP and Later al and obliqueOrdered By: Ccf Provider on 12-02-2021 [facility] XR ANKLE GENERAL 3V AP/LAT/O BL LEFTon 11-10-2021 [facility] XR Ankle - left AP and [...] Impression: Nondisplaced fracture of the medial malleolus Agricultural Equipment Salesperson: [facility] Transcribe Date/Time: Oct 03 2021 8:28A Dictated by : CATALINA VIDAL MD This examination was interpreted and the report reviewed and electronically signed by: CATALINA VIDAL MD on Oct 03 2021 8:29AM EST DIVISION OF RADIOLOGY Provider, Mely [facility] - 10/03/2021 * * *Final Report* [...] Impression: Nondisplaced fracture of the medial malleolus Agricultural Equipment Salesperson: [facility] Transcribe Date/Time: Oct 03 2021 8:28A Dictated by : CATALINA VIDAL MD This examination was interpreted and the report reviewed and electronically signed by: CATALINA VIDAL MD on Oct 03 2021 8:29AM EST [facility] Radiology Study observation (narrative) Michael mojica [facility] XR Ankle - left AP and Later al and obliqueOrdered By: Ccf Provider on 10-03-2021 [facility] Vital Signs Date Time Vital Sign Value Performing Clinician Facility 05-01-2025 15:06-0400 Body height 172.7 cm Zane Gonzalez MD Work Phone: [facility] 05-01-2025 15:06-0400 Body mass index (BMI) [Ratio] 31.04 kg/m2 Zane Gonzalez MD Work Phone: [facility] 05-01-2025 15:06-0400 Body temperature 97.81 [degF] Zane Gonzalez MD Work Phone: [facility] 05-01-2025 15:06-0400 Body weight 92.6 kg Zane Gonzalez MD Work Phone: [facility] 10-19-2023 16:52-0400 Body temperature 98.8 [degF] Marleny Praisler-Wood INFORMATION SYSTEMS MANAGER.CONTAINER FINISHING INSPECTOR Work Phone: [facility] 10-19-2023 16:52-0400 Body weight 99.5 kg Marleny Praisler-Wood INFORMATION SYSTEMS MANAGER.CONTAINER FINISHING INSPECTOR Work Phone: [facility] 10-19-2023 16:52-0400 Diastolic blood pressure 90 mm[Hg] Marleny Praisler-Wood INFORMATION SYSTEMS MANAGER.CONTAINER FINISHING INSPECTOR Work Phone: [facility] 10-19-2023 16:52-0400 Heart rate 75 /min Marleny Praisler-Wood INFORMATION SYSTEMS MANAGER.CONTAINER FINISHING INSPECTOR Work Phone: [facility] 10-19-2023 16:52-0400 Respiratory rate 20 /min Marleny Praisler-Wood INFORMATION SYSTEMS MANAGER.CONTAINER FINISHING INSPECTOR Work Phone: [facility] 10-19-2023 16:52-0400 SaO2% (BldA) [Mass fraction] 97 % Marleny Praisler-Wood INFORMATION SYSTEMS MANAGER.CONTAINER FINISHING INSPECTOR Work Phone: [facility] 10-19-2023 16:52-0400 Systolic blood pressure 150 mm[Hg] Marleny Praisler-Wood INFORMATION SYSTEMS MANAGER.CONTAINER FINISHING INSPECTOR Work Phone: [facility] 12-23-2022 09:06-0400 Body height 172.7 cm Loren Gian PA-C Work Phone: [facility] 12-23-2022 09:06-0400 Body temperature 97.7 [degF] Loren [place] PA-C Work Phone: [facility] 12-23-2022 09:06-0400 Body weight 95.53 kg Loren [place] PA-C Work Phone: [facility] 12-23-2022 09:06-0400 Diastolic blood pressure 80 mm[Hg] Loren Gian PA-C Work Phone: [facility] 12-23-2022 09:06-0400 Heart rate 66 /min Loren [place] PA-C Work Phone: [facility] 12-23-2022 09:06-0400 SaO2% (BldA) [Mass fraction] 98 % Loren Springer PA-C Work Phone: [facility] 12-23-2022 09:06-0400 Systolic blood pressure 142 mm[Hg] Loren BLANKENSH[place]-Ilan Work Phone: [facility] 09-04-2022 21:48-0500 Heart rate 67 /min [facility] 09-04-2022 21:48-0500 Respiratory rate 16 /min [facility] 09-04-2022 21:48-0500 SaO2% (BldA) [Mass fraction] 98 % [facility] 09-04-2022 17:51-0500 Body height 172.72 cm [facility] 09-04-2022 17:51-0500 Body mass index (BMI) [Ratio] 31.1 kg/m2 [facility] 09-04-2022 17:51-0500 Body temperature 97.3 [degF] [facility] 09-04-2022 17:51-0500 Body weight 92.98 kg [facility] 09-04-2022 17:51-0500 Diastolic blood pressure 78 mm[Hg] [facility] 09-04-2022 17:51-0500 Systolic blood pressure 151 mm[Hg] [facility] 09-04-2022 17:12-0500 Body temperature 98.71 [degF] Nigel Chambers MD Work Phone: [facility] 09-04-2022 17:12-0500 Body weight 93.08 kg Nigel Chambers MD Work Phone: [facility] 09-04-2022 17:12-0500 Diastolic blood pressure 78 mm[Hg] Nigel Chambers MD Work Phone: [facility] 09-04-2022 17:12-0500 Heart rate 73 /min Nigel Chambers MD Work Phone: [facility] 09-04-2022 17:12-0500 Respiratory rate 16 /min Nigel Chambers MD Work Phone: [facility] 09-04-2022 17:12-0500 SaO2% (BldA) [Mass fraction] 98 % Nigel Chambers MD Work Phone: [facility] [facility] 09-04-2022 17:12-0500 Systolic blood pressure 136 mm[Hg] Nigel Chambers MD Work Phone: [facility] Encounters Encounter Date Encounter Type Care Provider Facility Start: 05-28-2025 ambulatory Shalonda Vizcarra [facility] ity:[facility] Start: 05-22-2025 [facility] Facility:[facility] Start: 05-01-2025 End: 05-01-2025 Subsequent hospital visit by physician Zane Gonzalez MD Work Phone: [facility] Comment on above: Arrived Start: 05-01-2025 End: 05-01-2025 Office outpatient new 30 minutes Zane Gonzalez MD Work Phone: [facility] Comment on above: Pain in both hands ( Primary Dx); Carpal tunnel syndrome, left Start: 05-01-2025 ambulatory [facility] Start: 11-27-2024 End: 11-27-2024 ambulatory Shalonda Vizcarra Facility:[facility] Start: 06-08-2024 End: 06-08-2024 [facility] Facility:[facility] Start: 10-19-2023 End: 10-19-2023 ambulatory [facility] Facility:[facility] Start: 10-19-2023 End: 10-19-2023 Patient encounter procedure Marleny Santiago APRN.CNP Work Phone: [facility] Comment on above: Bacterial sinusitis (Primary Dx) Start: 01-15-2023 End: 01-15-2023 ambulatory ASHU Heraclio [facility] Facility:[facility] Start: 01-07-2023 End: 01-07-2023 ambulatory LOREN SPRINGER Facility:[facility] Start: 12-23-2022 End: 12-23-2022 ambulatory LOREN SPRINGER Facility:[facility] Start: 12-23-2022 End: 12-23-2022 Patient encounter procedure Loren Springer PA-C Work Phone: General Surgery Comment on above: Diverticulitis (Prim thuy Dx); Gastroesophageal reflux disease, unspecified whether esophagitis present; Throat clearing Start: 12-17-2022 Telephone encounter Louis hardin MD Work Phone: General Surgery Comment on above: Orders Start: 09-04-2022 End: 09-04-2022 Emergency department patient visit [facility]Emergency Department Start: 09-04-2022 End: 09-04-2022 Patient encounter procedure Nigel Chambers MD Work Phone: [facility] Comment on above: Abdominal pain, lowe r (Primary Dx) Start: 12-09-2021 End: 12-09-2021 Patient encounter procedure [facility] Start: 12-03-2021 Telephone encounter David Selvin deshpande Work Phone: Podiatry Comment on above: Results Start: 12-02-2021 End: 12-02-2021 Subsequent hospital visit by physician X[facility] Work Phone: Radiology Comment on above: Closed nondisplaced fracture of medial malleolus of left tibia, initial encounter [S82.55XA] Start: 11-12-2021 Orders Only David wells Work Phone: Podiatry Comment on above: Closed nondisplaced fracture of medial malleolus of left tibia, initial encounter (Primary Dx) Results Start: 11-10-2021 End: 11-10-2021 Subsequent hospital visit by physician [facility] Darci Work Phone: Radiology Comment on above: Closed nondisplaced fracture of medial malleolus of left tibia, initial encounter [S82.55XA] Start: 10-03-2021 End: 10-03-2021 Subsequent hospital visit by physician Xr [facility] Work Phone: Radiology Comment on above: Acute left ankle ja n [M25.572] Start: 09-20-2017 Orders Only Walt browne MD Work Phone: [facility] Comment on above: Special screening fo r malignant neoplasms, colon (Primary Dx) Procedures Date Procedure Procedure Detail Performing Clinician Start: 05-01-2025 Injection therapeuti c carpal tunnel Zane Gonzalez MD Work Phone: Start: 01-07-2023 Colonoscopy Marleny Peace APRN.CONTAINER FINISHING INSPECTOR Work Phone: Start: 09-04-2022 Computed tomography of [...] ankle complete minimum 3 views Haylee Cruz INFORMATION SYSTEMS MANAGER.CONTAINER FINISHING INSPECTOR Work Phone: Start: 11-23-2017 Colonoscopy [facility] Work Phone: Start: 07-16-2017 Adult depression scr eening assessment [facility] Work Phone: Start: 07-16-2017 Lipid 1996 panel - S gila or Plasma Marleny Santiago INFORMATION SYSTEMS MANAGER.CONTAINER FINISHING INSPECTOR Work Phone: Plan of Treatment Date Care Activity Detail Author Start: 01-07-2033 Screening for malign ant neoplasm of colon [facility] Start: 08-22-2025 End: 08-22-2025 Patient encounter procedure 08/22/2025 9:00 AM EST Office Visit [facility] [address] [place] [address] Zane Gonzalez MD [address] [place] [id number] [facility] Start: 04-30-2025 End: 04-30-2026 XR Hand - left 3 Views XR HAND LEFT 3+ VIEWS Imaging Routine Pain in both hands Expected: 04/30/2025, Expires: 04/30/2026 [facility] Comment on above: Expected: 04/30/2025 , Expires: 04/30/2026 Start: 04-09-2025 COVID-19 VACCINE ( season) COVID-19 VACCINE ( season) [facility] Start: 04-09-2025 Influenza vaccination INFLUENZA VACC INE (#1) [facility] Start: 04-09-2024 Covid-19 Vaccine ( season) Covid-19 Vaccine ( season) [facility] Start: 04-09-2024 Influenza vaccination Influenza Vacc ine (#1) [facility] Start: 08-09-2023 Depression Assessment Depression Ass essment [facility] Start: 04-09-2023 Covid-19 Vaccine ( season) Covid-19 Vaccine ( season) [facility] Start: 04-09-2023 Influenza vaccination [facility] Start: 08-09-2022 DEPRESSION ASSESSMENT DEPRESSION ASS ESSMENT [facility] Start: 07-16-2022 Lipid panel Lipid Screening [facility] Start: 07-16-2022 LIPID SCREEN LIPID SCREEN [facility] Start: 07-16-2022 PROSTATE CANCER SCREENING DISCUSSION PROSTATE CANCER SCREENING DISCUSSION [facility] Start: 07-16-2022 Prostate specific antigen measurement Prostate Cancer Screening Discussion [facility] Start: 04-09-2022 Influenza vaccination [facility] Start: 12-03-2021 End: 12-12-2022 XR ANKLE GENERAL 3V AP/LAT/OBL LEFT XR ANKLE GENERAL 3V AP/LAT/OBL LEFT Radiology Routine Closed nondisplaced fracture of medial malleolus of left tibia, initial encounter Expected: 12/03/2021, Expires: 12/12/2022 [facility] Work Phone: Comment on above: Expected: 12/03/2021 , Expires: 12/12/2022 Start: 2020 Prostate specific antigen measurement PROSTATE CANCER SCREENING DISCUSSION [facility] Start: 09-05-2020 Tetanus vaccination [facility] Start: 09-05-2020 Urine microalbumin profile [facility] Start: 07-16-2020 DIABETES SCREEN DIABETES SCREEN [facility] Start: 07-16-2020 Diabetes Screening Diabetes Screenin g [facility] Start: 11-23-2018 Colonoscopy COLONOSCOPY [facility] Start: 11-23-2018 COLORECTAL CANCER SCREENING COLORECTAL CANCER SCREENING [facility] Start: 11-23-2018 Screening for malign ant neoplasm of colon COLORECTAL CANCER SCREENING DISCUSSION [facility] Start: 07-16-2018 Adult depression screening assessment DEPRESSION SCREENING [facility] Start: 2015 Pneumococcal vaccination PNEUMOCOCCAL VACCINE SERIES (1 of 1 - PCV) [facility] Start: 2015 SHINGRIX VACCINE (1 of 2) SHINGRIX VACCINE (1 of 2) [facility] Start: 2010 COLOGUARD (FIT-DNA) COLOGUARD (FIT-D NA) [facility] Start: [address] COLONOGRAPHY [facility] Start: 2010 FECAL OCCULT BLOOD FECAL OCCULT BLOO D [facility] Start: 2010 Screening for malign ant neoplasm of colon [facility] Start: 2010 SIGMOIDOSCOPY SIGMOIDOSCOPY [facility] Start: 2005 Lipid panel LIPID SCREENING [facility] Start: 1984 Hepatitis B vaccination HEP B VACCINE (1 of 3 - 19+ 3-dose series) [facility] Start: 1984 Hepatitis B Vaccine (1 of 3 - 19+ 3-dose series) Hepatitis B Vaccine (1 of 3 - 19+ 3-dose series) [facility] Start: 1983 Anxiety Screening Anxiety Screening [facility] Start: 1983 Depression Screening Depression Scre ening [facility] Start: 1983 HIV SCREENING HIV SCREENING [facility] Start: 1983 HIV screening HIV Screening [facility] Start: 1980 HIV screening HIV SCREENING DISCUSSI ON [facility] Start: 1970 COVID-19 VACCINE (1) COVID-19 VACCIN E (1) [facility] Start: 03-23-1966 COVID-19 VACCINE (#1) COVID-19 VACCI NE (#1) [facility] Start: 1965 HEPATITIS B (1 of 3 - 3-dose series) HEPATITIS B (1 of 3 - 3-dose series) [facility] Start: 1965 Hepatitis C screening HEPATITI S C VIRUS SCREENING [facility] Patient Education ED Diverticulitis [place] [facility] Work Phone: [facility] [place] [facility] Work Phone: End: 05-01-2025 XR Hand - left 3 Views [facility] Comment on above: 1 Occurrences starti ng 05/01/2025 until 05/01/2025 [facility] Immunizations Immunization Date Immunization Notes Care Provider Shashi vital 06-01-2018 influenza virus vaccine, unspecified formulation Marleny Santiago APRN.CONTAINER FINISHING INSPECTOR Work Phone: [facility] 06-22-2015 influenza, injectabl e, quadrivalent, contains preservative [facility] Work Phone: [facility] 06-22-2015 influenza virus vaccine, unspecified formulation Zane Gonzalez MD Work Phone: [facility] 05-17-2014 influenza, seasonal, injectable [facility] Work Phone: [facility] 06-03-2013 influenza virus vaccine, live, attenuated, for intranasal use [facility] Work Phone: [facility] Work Phone: 05-28-2012 influenza virus vaccine, live, attenuated, for intranasal use [facility] Work Phone: [facility] 05-30-2011 influenza virus vaccine, live, attenuated, for intranasal use [facility] Work Phone: [facility] 09-05-2010 tetanus toxoid, redu danette diphtheria toxoid, and acellular pertussis vaccine, adsorbed [facility] Work Phone: [facility] Work Phone: 05-24-2010 influenza virus vaccine, live, attenuated, for intranasal use [facility] Work Phone: [facility] 05-11-2009 influenza virus vaccine, live, attenuated, for intranasal use [facility] Work Phone: [facility] 06-14-2008 influenza virus vaccine, unspecified formulation [facility] Work Phone: [facility] Work Phone: 06-18-2007 influenza virus vaccine, unspecified formulation [facility] Work Phone: [facility] Work Phone: 06-09-2006 influenza virus vaccine, unspecified formulation [facility] Work Phone: [facility] Work Phone: Payers Date Payer Category Payer [employer] of [employer] ns [facility] [id number] 2024 Unknown [id number] 04 2024 Managed Care (unspecified) [facility] PPO POS [id number] 2024 Self-pay [id number] 2022 Private Health Insurance [facility] [employer] [id number] 2022-Present [phone] [address] [place] [address] PPO [id number] 2022 Unknown [id number] 2021 Unknown ANTHEM BLUE ACCE SS PPO [id number] 2021-Present [phone] [address] [place] [address] PPO [id number] 2021 Unknown [id number] 2015 Unknown ANTHEM ANTHEM BC BS FEP PPO [id number] 2015-Present [phone] [address] [place] [address] PPO [id number] 2015 Unknown [id number] 2012 Unknown [id number] 1965 Unknown [id number] 1965 Unknown [id number] 1965 Unknown [id number] Unknown [id number] Unknown [id number] Unknown [id number] Unknown [id number] Unknown [id number] Social History Date Type Detail Facility Start: 04-03-2013 End: 05-01-2025 Tobacco smoking status NHIS Never smoked tobacco [facility] Start: 10-03-2021 End: 10-28-2021 Alcohol intake Current drinker of alcohol (finding) [facility] Start: 02-23-2013 History SDOH Alcohol Comment rarely, once monthly [facility] Start: 1965 Sex Assigned At Not on file [facility] Start: 09-03-2021 End: 10-28-2021 Exposure to SARS-CoV-2 (event) Not sure [facility] Start: 1965 Sex Assigned At Male [facility] Start: 09-04-2022 Tobacco smoking stat us DCIS Unknown if ever smoked [facility] Start: 04-03-2013 End: 05-01-2025 Tobacco use and exposure Smokeless tobacco non-user [facility] Start: 10-19-2023 End: 05-01-2025 History of Social function [facility] Start: 10-19-2023 End: 05-01-2025 Tobacco use panel [facility] National Score (1-100), lower number is lower risk 57 [facility] Start: 03-28-2025 Sex Male (finding) [facility] Clinical Notes 10-03-2021 to 05-01-2025 Renetta [...] Date HERNIA REPAIR RELEASE CARPAL TUNNEL Bilateral [phone] [3] Current Outpatient Medications: Timolol maleate 0.25 [...] Status Change siezure documented in this encounter [facility] 10-19-2023 Note HNO ID: [id number] Author: MARLENY SANTIAGO APRN.CONTAINER FINISHING INSPECTOR Service: ? Author Type: Nurse Practitioner Type: [...] FOUR TIMES A DAY NEEDED FOR DIARRHEA tflerqj-vgxnrsdlw-sihscrv D3 500 mg-5 mcg (200 unit) per [...] Age of Onset Emphysema Mother Heart Father MS age 69 Colon Cancer Maternal Grandfather 90 [...] Discussed expected course of illness Marleny Santiago APRN.[facility] 10-19-2023 History of Present illness Narrative Subjective [...] FOUR TIMES A DAY NEEDED FOR DIARRHEA irlrsut-yxdkkghhi-gpnclxp D3 500 mg-5 mcg (200 unit) per [...] Age of Onset Emphysema Mother Heart Father MS age 69 Colon Cancer Maternal Grandfather 90 [...] Marleny Santiago APRN.CNP documented in this encounter [facility] 10-19-2023 Instructions Marleny Santiago APRN.CNP - [...] Sinusitis Patient Education What is Sinusitis? Sinusitis [xjke-mes-yvrv-tis] is inflammation of the sinuses or swelling [...] help. You may be instructed to take fmlx-ubj-pruxgvq medications for symptoms. including fever reducers acetaminophen or ibuprofen, nasal saline spray, cough and cold preparations and decongestants as prescribed by the physician, nurse practitioner or physician assistant front office manager. Self-Care and Prevention: Rest Fluids for hydration Good hand washing Humidifier Avoid smoking and exposure to second hand smoke Avoid sick contacts documented in this encounter [facility] 01-15-2023 Note HNO ID: [id number] Author: Loren Springer PA-C Service: ? Author Type: Physician Tear Down Matcher Type: Progress Notes Filed: 01/24/2023 10:34 PM [...] UP VISIT - ENDOSCOPY NAME: Clifford Baldwin [facility] NO.: [id number] DATE OF SERVICE: 01/15/2023 : 1965 REFERRING PHYSICIAN: Ashu Bodureaux MD Clifford is a patient I am [...] which included preparing to see the patient, hfzk-tr-aepo patient care, completing clinical documentation, obtaining and/or reviewing separately obtained history, counseling and educating the patient/family/caregiver, independently interpreting results (not separately reported), and communicating results to the patient/family/caregiver. Loren Springer PA-C [facility] 12-23-2022 Note HNO ID: [id number] Author: Loren Springer PA-C Service: ? Author Type: Physician Tear Down Matcher Type: Progress Notes Filed: 12/29/2022 12:54 PM Note Text: HISTORY AND PHYSICAL Clifford Baldwin Justina 1965 REFERRING PHYSICIAN: [place] CHIEF COMPLAINT: Consult (Colonoscopy consult) HPI: The patient is a 57 year old male referred for endoscopy. Clifford notes an episode of diverticulitis for which he was treated in August 2022-seen at [facility] initially and had follow-up with [place] [facility]. Notes symptoms resolved completely with [...] FOUR TIMES A DAY NEEDED FOR DIARRHEA hcyeecz-jjthkessk-dmdvwpc D3 500 mg-5 mcg (200 unit) per [...] Age of Onset Emphysema Mother Heart Father MS age 69 Colon Cancer Maternal Grandfather 90 REVIEW OF SYMPTOMS: The review of systems data was entered by the nurse and reviewed by wy Nursing Notes: Ina Hernandez RN 12/23/2022 10:15 [...] denies bleeding, a (more content not included)... [facility] 12-23-2022 Nurse Note REVIEW OF SYSTEMS: General: [...] Ina Hernandez RN documented in this encounter [facility] 12-23-2022 History of Present illness Narrative HISTORY AND PHYSICAL Clifford Horn 1965 REFERRING PHYSICIAN: [place] CHIEF COMPLAINT: Consult (Colonoscopy consult) HPI: The patient is a 57 year old male referred for endoscopy. Clifford notes an episode of diverticulitis for which he was treated in August 2022-seen at [facility] initially and had follow-up with [place] [facility]. Notes symptoms resolved completely with [...] FOUR TIMES A DAY NEEDED FOR DIARRHEA uksmmgp-sjpghmbfq-bybpard D3 500 mg-5 mcg (200 unit) per [...] Age of Onset Emphysema Mother Heart Father MS age 69 Colon Cancer Maternal Grandfather 90 REVIEW OF SYMPTOMS: The review of systems data was entered by the nurse and reviewed by wy Nursing Notes: Ina Hernandez RN 12/23/2022 10:15 [...] surgery. Patient has Moviprep bowel preparation from [place] I have explained to the patient the [...] Loren Springer PA-C documented in this encounter [facility] 12-17-2022 Miscellaneous Notes Printed referral from Scanned docs and gave to Bobib to contact Pt for an appointment.Essie Grant RN [place] called wondering if we received the orders for pt to have colonoscopy. Please verify the orders are correct in scanned documents. documented in this encounter [facility] 09-04-2022 Discharge summary Note Date/Time September 04, 2022 7:24pm [facility] Medical Records Department [address] [place] [address] Emergency Department Summary 09/04/22 MR#: [id number] Acct: [id number] Name: CLIFFORD HORN Rep #:[id number] : 1965 56 From: Ralph Levy MD PCP: [place], [place] Status:REG ER Location: ED HPI HPI [...] % (Auto) 59.8 Lymph % (Auto) 27.6 [place] % (Auto) 10.6 H Eos % (Auto) [...] Clarity Clear Urine pH 7.0 Ur Specific [place] 1.010 Urine Protein 30 H Urine Glucose [...] 19:47 EST Reading Location ID and State: [address] [place] [address] Tel [phone], Service support , Discharge Plan Triage Chief Complaint: Abd Pain ED Provider: Ralph Levy Dx/Rx/DC Orders Clinical Impression: Diverticulitis Instructions: ED Diverticulitis Prescriptions: New ondansetron [ondansetron] 4 mg tablet,disintegrating 4 mg PO Q8H PRN PRN (Reason: Nausea) Qty: 10 0RF amoxicillin-pot clavulanate 875-125 mg tablet 1 tab PO BID Qty: 20 0RF [facility] Provider[facility] Referrals: [facility] [Primary Care Provider] - 3-5 Days if not improving Disposition Disposition: Home, Self Care What to do if you have Problems For any increased pain, shortness of breath, bleeding, nausea or vomiting, chestpain, or any unexpected problems, contact your Primary Care Provider. Call [facility] ([phone]) or report to the closest Emergency Room. Call 911 if necessary. 09/04/222134 <Electronically signed by Ralph Levy MD> Cosigner Signature (if applicable): CC: [facility] ~ Signed [facility] Work Phone: [phone]) 612-460101-27-2023 History of Present illness Narrative* Nigel Chambers [...] MOUTH FOUR TIMES A DAY NEEDED FORDIARRHEA yvlypmg-frsskpmot-laiohma D3 500 mg-5 mcg (200 unit) per [...] ER for further evaluation. Report sent to [facility] by [employer]. Nigel Chambers MD [facility] Miscellaneous Notes* Telephone Encounter - Harriet [...] progression David Warren DPM [facility] Miscellaneous Notes* Telephone Encounter - Gloria [...] weeks. David Warren DPM [facility] History of Present illness Narrative* RT [...] 10, 2021 4:39 PM [facility] History of Present illness Narrative* Elizabeth [...] 03, 2021 8:05 AM [facility] Diagnosis Closed nondisplaced fracture of medial malleolus of left tibia, initial encounter documented in this encounter [facility] note* Diagnosis Closed nondisplaced fracture of medial malleolus of left tibia, initial encounter- Primary documented in this encounter [facility] noteNo assessment information availableWDiley Ridge Medical Center Work Phone: Evaluation note* Diagnosis Abdominal pain, lower- Primary Abdominal pain, other specified site documented in this encounter [facility] note* Diagnosis Special screening for malignant neoplasms, colon- Primary documented in this encounter [facility] note* Diagnosis Diverticulitis- Primary Diverticulitis of colon (without mention of hemorrhage) Gastroesophageal reflux disease, unspecified whether esophagitis present Throat clearing Other symptoms involving head and neck documented in this encounter [facility] note* Diagnosis Bacterial sinusitis- Primary Unspecified sinusitis (chronic) documented in this encounter [facility] note* Diagnosis Acute left ankle pain documented in this encounter [facility] note* Diagnosis Pain in both hands [facility] Diagnosis Pain in both hands- Primary Carpal tunnel syndrome, left Carpal tunnel syndrome documented in this encounter [facility] (narrative)* Diagnostic Procedure Only (Routine) - Closed Specialty Diagnoses / Procedures Referred By Keyur corbett Referred To Contact XR IMAGING Diagnoses Closed nondisplaced fracture of medial malleolus of left tibia, initial encounter Procedures XR ANKLE GENERAL 3V AP/LAT/OBL LEFT RADEX ANKLE COMPLETE MINIMUM 3 VIEWS David Warren [address] [place] [address] Xr Imaging Referral ID Status Reason Start Date Expiration Date V isits Requested Visits Authorized [id number] Closed Auto-Generate d Referral 10/28/2021 11/27/2022 1 1 [facility] for referral (narrative)* Diagnostic Procedure Only (Routine) - Pending Review Specialty Diagnoses / Procedures Referred By Contac t Referred To Contact XR IMAGING Diagnoses Closed nondisplaced fracture of medial malleolus of left tibia, initial encounter Procedures XR ANKLE GENERAL 3V AP/LAT/OBL LEFT RADEX ANKLE COMPLETE MINIMUM 3 VIEWS David Warren [address] [place] [address] Xr Imaging Referral ID Status Reason Start Date Expiration Date Visits Requested Visits Authorized [id number] Pending Review Auto-Generat ed Referral 12/03/2021 12/12/2022 1 1 [facility] for referral (narrative)* Diagnostic Procedure Only (Routine) - Closed Specialty Diagnoses / Procedures Referred By Contac t Referred To Contact XR IMAGING Diagnoses Closed nondisplaced fracture of medial malleolus of left tibia, initial encounter Procedures XR ANKLE GENERAL 3V AP/LAT/OBL LEFT RADEX ANKLE COMPLETE MINIMUM 3 VIEWS David Warren[address] [place] [address] [place] [address] Referral ID Status Reason Start Date Expiration Date V isits Requested Visits Authorized [id number] Closed Auto-Generate d Referral 12/03/2021 12/12/2022 1 1 [facility] for referral (narrative)* Diagnostic Procedure Only (Urgent) - Closed Specialty Diagnoses / Procedures Referred By Contac t Referred To Contact XR IMAGING Diagnoses Acute left ankle pain Procedures XR ANKLE GENERAL 3V AP/LAT/OBL LEFT RADEX ANKLE COMPLETE MINIMUM 3 VIEWS Haylee Cruz APRN.CONTAINER FINISHING INSPECTOR [address] [id number] [place] [address] Referral ID Status Reason Start Date Expiration Date V isits Requested Visits Authorized [id number] Closed Auto-Generate d Referral 10/03/2021 11/02/2022 1 1 [facility] for visit Narrative* Diagnostic Procedure Only (Routine) - Closed Specialty Diagnoses / Procedures Referred By Contac t Referred To Contact XR IMAGING Diagnoses Closed nondisplaced fracture of medial malleolus of left tibia, initial encounter Procedures XR ANKLE GENERAL 3V AP/LAT/OBL LEFT RADEX ANKLE COMPLETE MINIMUM 3 VIEWS David Warren [address] [place] [address] Xr Imaging Referral ID Status Reason Start Date Expiration Date V isits Requested Visits Authorized [id number] Closed Auto-Generate d Referral 10/28/2021 11/27/2022 1 1 [facility] for visit Narrative* Diagnostic Procedure Only (Routine) - Closed Specialty Diagnoses / Procedures Referred By Contac t Referred To Contact XR IMAGING Diagnoses Closed nondisplaced fracture of medial malleolus of left tibia, initial encounter Procedures XR ANKLE GENERAL 3V AP/LAT/OBL LEFT RADEX ANKLE COMPLETE MINIMUM 3 VIEWS David Warren [address] [place] [address] [place] [address] Referral ID Status Reason Start Date Expiration Date V isits Requested Visits Authorized [id number] Closed Auto-Generate d Referral 12/03/2021 12/12/2022 1 1 [facility] for visit Narrative* Diagnostic Procedure Only (Urgent) - Closed Specialty Diagnoses / Procedures Referred By Contac t Referred To Contact XR IMAGING Diagnoses Acute left ankle pain Procedures XR ANKLE GENERAL 3V AP/LAT/OBL LEFT RADEX ANKLE COMPLETE MINIMUM 3 VIEWS Haylee Cruz APRN.CONTAINER FINISHING INSPECTOR [address] [place] [address] [place] [address] Referral ID Status Reason Start Date Expiration Date V isits Requested Visits Authorized [id number] Closed Auto-Generate d Referral 10/03/2021 11/02/2022 1 1 [facility] for visit Narrative* Diagnostic X-Ray (Routine) - New Request Specialty Diagnoses / Procedures Referred By Contac t Referred To Contact Diagnoses Pain in both hands Procedures XR HAND LEFT 3+ VIEWS Zane Gonzalez MD [address] [place] [address] Phone: tel: fax: Referral ID Status Reason Start Date Expiration Date V isits Requested Visits Authorized [id number] New Request 04/30/2025 05/25/2026 1 1 [facility] Chief Complaint and Reason for Visit Chief Complaint FACIAL/JAW PAIN, STR ALEX RISK FACTORS Chief Complaint ABD PAIN Advance Directives No Advanced Directives Records Found Advance Directive Response Recorded Date/ Time Living Will No September 04 6:35pm Power of Chief Executive Or Managing Director No September 04, 2022 6:35pm Health Concerns [...] or prosecute any alcohol or drug abuse patient.[facility] the event this information is protected by the Federal Confidentiality of Alcohol and Drug Abuse Patient Records regulations: The Federal rules restrict any use of the information to criminally investigate or prosecute any alcohol or drug abuse patient.[facility] the event this information is protected by the Federal Confidentiality of Alcohol and Drug Abuse Patient Records regulations: The Federal rules restrict any use of the information to criminally investigate or prosecute any alcohol or drug abuse patient.[facility] the event this information is protected by the Federal Confidentiality of Alcohol and Drug Abuse Patient Records regulations: The Federal rules restrict any use of the information to criminally investigate or prosecute any alcohol or drug abuse patient.[facility] the event this information is protected by the Federal Confidentiality of Alcohol and Drug Abuse Patient Records regulations: The Federal rules restrict any use of the information to criminally investigate or prosecute any alcohol or drug abuse patient.[facility] Hospital[facility] the event this information is protected by the Federal Confidentiality of Alcohol and Drug Abuse Patient Records regulations: The Federal rules restrict any use of the information to criminally investigate or prosecute any alcohol or drug abuse patient.[facility] Hospital[facility] the event this information is protected by the Federal Confidentiality of Alcohol and Drug Abuse Patient Records regulations: The Federal rules restrict any use of the information to criminally investigate or prosecute any alcohol or drug abuse patient.[facility] Hospital[facility] the event this information is protected by the Federal Confidentiality of Alcohol and Drug Abuse Patient Records regulations: The Federal rules restrict any use of the information to criminally investigate or prosecute any alcohol or drug abuse patient.[facility] HospitalIn the event this information is protected [...] or prosecute any alcohol or drug abuse patient.[facility] Hospital[facility] the event this information is protected by the Federal Confidentiality of Alcohol and Drug Abuse Patient Records regulations: The Federal rules restrict any use of the information to criminally investigate or prosecute any alcohol or drug abuse patient.[facility] HospitalIn the event this information is protected by the Federal Confidentiality of Alcohol and Drug Abuse Patient Records regulations: The Federal rules restrict any use of the information to criminally investigate or prosecute any alcohol or drug abuse patient.[facility] Care Teams (unrecognized sec tion and content) Tool Honing Machine Set Up Operator Relationship Specialty Start Date End Date Ashu Boudreaux MD [address] [place] [address] PCP - General Family Practice 06/02/11 Tool Honing Machine Set Up Operator Relationship Specialty Start Date End Date Ashu Boudreaux MD [address] [place], [place] [id number] PCP - General Family Practice 06/02/11 Tool Honing Machine Set Up Operator Relationship Specialty Start Date End Date Ashu Boudreaux MD [address] [place] [address] PCP - General Family Practice 06/02/11 Team Status: Active Member Role Status Dates [facility] Primary Care Provider Active Team Status: Inactive Member Role Status Dates Dr. Ralph Levy MD Emergency Provider Active [facility] Primary Care Provider Active Tool Honing Machine Set Up Operator Relationship Specialty Start Date End Date Ashu Boudreaux MD [address] [place] [address] PCP - General Family Medicine 06/02/11 Tool Honing Machine Set Up Operator Relationship Specialty Start Date End Date Ashu Boudreaux MD [address] [place] [address] PCP - General Family Medicine 06/02/11 Tool Honing Machine Set Up Operator Relationship Specialty Start Date End Date Ashu Boudreaux MD [address] [place] [address] PCP - General Family Medicine 06/02/11 Tool Honing Machine Set Up Operator Relationship Specialty Start Date End Date Ashu Boudreaux MD [address] [place] [address] PCP - General Family Medicine 06/02/11 Tool Honing Machine Set Up Operator Relationship Specialty Start Date End Date Ashu Boudreaux MD [address] [place] [address] PCP - General Family Medicine 06/02/11 Tool Honing Machine Set Up Operator Relationship Specialty Start Date End Date Ashu Boudreaux MD [address] [facility] [place] [place] [address] PCP - General Family Medicine 06/02/11 Tool Honing Machine Set Up Operator Relationship Specialty Start Date End Date Ashu Boudreaux MD [address] [place] [address] PCP - General Family Medicine 06/02/11 Reason [...] scanned doc Procedures [facility] Loren Springer PA-C [address] [place] [address] Referral ID Status Reason Start Date Expiration Date V isits Requested Visits Authorized [id number] Outside PCP 12/23/2022 02/21/2023 1 1 Reason Comments Sinus Problem Eye discharge, conge stion, sinus pressure x 7 days Reason Comments Pain Specialty Diagnoses / Procedures Referred By Contac t Referred To Contact Orthopaedics Diagnoses Pain of hand, unspecified laterality Emily Regalado, INFORMATION SYSTEMS MANAGER-CONTAINER FINISHING INSPECTOR Phone: tel: fax: Zane Gonzalez MD [address] [place] [address] Phone: tel: fax: Referral ID Status Reason Start Date Expiration Date V isits Requested Visits Authorized [id number] Pending Review 05/01/2025 05/01/2026 1 999 Goals (unrecognized section and content) Goals may be documented in a n alternate sectionGoals may be documented in an alternate section (unrecognized sect ion and content) No Status Records FoundNo Status Records FoundNo Status Records Found INFORMATION SOURCE (unrecogn ized section and content) DATE CREATED AUTHOR 10/21/2023 [facility] DATE CREATED AUTHOR AUTHOR'S ORGANIZ ATION 05/11/2025 [facility] DATE CREATED AUTHOR AUTHOR'S ORGANIZ ATION 05/23/2025 [facility] FOR RECORDS PERTAINING TO PATIENTS WHO [...] BE BASED ON THE PRIMARY CLINICAL RECORDS. [employer] [facility]. provides no warranty or guarantee of the accuracy or completeness of information in this document.
== END | disposition home or self-care (01) ==
LOC: US 07:49
PROVIDERS: Referring Provider Internal Medicine Gastroenterology; Visit Provider Internal Medicine Gastroenterology
DX: K74.02 Hepatic fibrosis, advanced fibrosis (principal)
CPT/HCPCS: 76705